=== PATIENT | male | born 1940 | race Caucasian/White ===

== ENCOUNTER 2016-07-12 02:05 | Inpatient (IN) ==
[2016-07-12] MEDS ORDERED: Ipratropium/Albuterol Neb 3 ML IH ONE (02:08)
[2016-07-12] MEDS ORDERED: methylPREDNISolone 125 MG/2 ML VIAL IVP ONE (02:16)
--- NOTE | 2016-07-12 02:18 | Emergency Department Note ---
START Narrative - START START: I examined this patient and my medical decision-making was reviewed with the [employer]LL[employer]TER OVERLOCK/PA/Advanced Practice Nurse/Resident Physician. I agree with the documented findings, disposition and treatment plan as described except to the extent set forth below. ED attending note: Patient seen with emergency medicine resident Dr. Bingham. Please see a copy of his note for details of the H&P, evaluation, management and disposition of this patient. We independently had [id number] contact with the patient Briefly: This 75-year-old male by EMS for shortness of breath history of COPD. Patient is not on supplemental oxygen says he has been using his sore trying to use his albuterol machine at home but it is not working. He otherwise just on his inhalers. Patient admits to sputum but no fevers. No ill contacts except for recent travel. No peripheral edema, expiratory wheezes ceased Tachycardic and slightly hypoxic at 92% on supplemental O2. Patient had a triple DuoNeb here steroids supplemental oxygen screening labs EKG and troponin. Provided 30 minutes critical care service for this patient. Disposition pending.
[2016-07-12] MEDS ORDERED: Nitroglycerin 0.4 MG TAB.SUBL SL PRN (02:37)
--- NOTE | 2016-07-12 02:45 | Emergency Department Note ---
Disposition Clinical Impression: Shortness of breath, Hyponatremia Disposition: Admitted As Inpatient Condition: Good Referrals: NO,PCP [Primary Care Provider] - Forms: ED Satisfaction Letter Time of Disposition: 03:41 General Adult HPI - General Chief complaint: ED Shortness of Breath/Dyspnea Stated complaint: YANIQUE Time Seen by Provider: 07/12/16 02:08 Source: patient, EMS Limitations: no limitations Nursing Notes Reviewed: Yes Vital Signs Reviewed: Yes - History of Present Illness HPI Narrative: Three-day history of shortness of breath. Productive cough with a clear sputum. Got worse at night. Does not wear oxygen at home. Does use albuterol inhalers however he has a nebulizer that is broken. Denies any fevers. Denies any chest pain. Does have a history of CHF. Denies any edema. States that this feels like his previous CHF events. Pain Scale: 0 - Related Data Home Medications Medication Instructions Recorded Confirmed Amlodipine Besylate 10 mg PO DAILY 09/15/15 09/15/15 Benazepril HCl [Lotensin] 40 mg PO DAILY 09/15/15 09/15/15 Previous Rx's Medication Instructions Recorded Albuterol Neb [Proventil Neb] 2.5 mg IH Q4HR 30 Days 09/20/15 Albuterol Sulfate [Albuterol 1 puff IH Q4HR #1 hfa.aer.ad 09/20/15 Inhaler] Budesonide/Formoterol 160/4.5 1 puff IH BIDR #1 hfa.aer.ad 09/20/15 [Symbicort 160/4.5] Doxycycline 100 mg PO BID 3 Days 09/20/15 Furosemide [Lasix] 20 mg PO BID 30 Days 09/20/15 Metoprolol [Lopressor] 50 mg PO BID 30 Days 09/20/15 Nebulizer [Aeroeclipse] 1 each AD #1 each 09/20/15 Tiotropium [Spiriva] 18 mcg IH 0700 #1 capsule 09/20/15 Allergies Allergy/AdvReac Type Severity Reaction Status Date / Time No Known Allergies Allergy Verified 07/12/16 02:06 All systems ED: reviewed and negative except as stated. Constitutional: Denies: fever, chills ENT ED: Denies: ear pain, throat pain, congestion Cardiovascular: Denies: chest pain, palpitations, syncope Respiratory: Reports: cough, dyspnea, wheezes. Denies: hemoptysis Gastrointestinal: Denies: abdominal pain, nausea, vomiting, diarrhea, hematemesis, melena, hematochezia Genitourinary: Denies: urgency, dysuria, frequency, hematuria Musculoskeletal: Denies: back pain, neck pain Integumentary: Denies: rash Neurological: Denies: headache, weakness Past Medical History - Past Medical History Attestation: Yes The following information was validated with the patient. Medical history: Reports: CHF, hypertension Surgical history: Reports: hip replacement Psychiatric history: Reports: no psych history - Social History Smoking Status: Former smoker Smokeless Tobacco Status: No Alcohol use: Reports: heavy Drug use: Reports: none Physical Exam - General Limitations: no limitations General appearance: alert, in no apparent distress - Head Head exam: atraumatic, normocephalic, normal inspection - Eye Eye exam: Present: normal appearance, PERRL, EOMI. Absent: scleral icterus - ENT ENT exam: normal exam, normal oropharynx, mucous membranes moist - Neck Neck exam: Present: normal inspection, full ROM, trachea midline. Absent: tenderness, meningismus - Chest Chest inspection: Present: normal inspection, symmetric chest wall rise. Absent : tenderness - Respiratory Respiratory exam: Present: respiratory distress, wheezes (Diffusely), accessory muscle use, prolonged expiratory phase - Cardiovascular Cardiovascular exam: Present: normal rhythm, tachycardia, normal heart sounds - Abdominal Exam Abdominal exam: Present: soft, Non-Tender, normal bowel sounds. Absent: tenderness, distention, guarding, rebound, rigidity, organomegaly - Extremities Exam Extremities exam: Present: normal inspection, full ROM, tenderness, normal capillary refill. Absent: pedal edema - Back Exam Back exam: Present: normal inspection, full ROM. Absent: tenderness - Neurological Exam Neurological exam: Present: alert, oriented X3 - Psychiatric Psychiatric exam: Present: normal affect, normal mood - Skin Skin exam: Present: warm, dry, intact, normal color. Absent: rash, cyanosis, diaphoresis, erythema Course Course Narrative: No patient complaints emergency department with EMS. He does appear to be a respirator distress. They state that his oxygen saturation was in the low 90s on arrival at the house however after nonrebreather he is 95%. They also gave her 1 DuoNeb. He does have a history of CHF. He states that this feels like his last CHF exacerbation. On exam he is using his accessory muscles to breathe. He has diffuse wheezing on exam. I do not appreciate any signs of edema to his extremities. He states he takes Lasix daily. He has been compliant with his medication. We have given the patient a triple DuoNeb and steroids. This opened patient however he still sounds very junky and is using his accessory muscles to breathe. He is at 93% on room air. However his work of breathing is increased. We will place patient on BiPAP and give him 1 nitroglycerin. Patient denies a fever however he does report a clear sputum. He denies any chest pain abdominal pain nausea vomiting or diarrhea. We will do a cardiac workup on patient get a chest x-ray. On initial valuation of the chest x-ray that was done as a portable it does appear as if he is fluid overloaded. He has pulmonary congestion. We will wait for the official read. - Reevaluation(s) Reevaluation #1: Patient was placed on BiPAP. This increased oxygen saturation and helps clear lung sounds. However he did not like this. So we removed the BiPAP. He refused anxiety medication to keep the BiPAP on. He just requested it off. Patient's chest x-ray was read as negative. However his lung sounds are still diffusely wheezing. We have placed him on 4 L by nasal cannula and he is maintaining oxygen saturation around 95%. He does have an increased lactate which could be consistent with his work of breathing. On arrival he was using accessory muscles and tripoding to breathe. He is tachycardic. We will add a d -dimer. Time: 03:34 Reevaluation #2: Patient reassessed. He still has wheezing diffusely in his lung sounds. They discussed admission. I have also discussed that he is hyponatremic he states that he is a heavy beer drinker. He states he has never withdrawn from this. Or had DTs from withdrawing from alcohol. We will admit patient to the hospital for shortness of breath and a possible new COPD diagnosis as well as the hyponatremia. Time: 03:40 - Consultations Consultation #1: accepted patient stable condition. Time: 03:46 Vital Signs Temperature 97.7 F 07/12/16 02:06 Pulse Rate 112 07/12/16 02:06 Respiratory Rate 20 07/12/16 02:06 Blood Pressure 134/82 07/12/16 02:06 O2 Sat by Pulse Oximetry 97 07/12/16 02:06 Temperature 97.7 F 07/12/16 02:06 Pulse Rate 98 07/12/16 03:34 Respiratory Rate 18 07/12/16 03:34 Blood Pressure 105/65 07/12/16 03:34 O2 Sat by Pulse Oximetry 96 07/12/16 03:34 Oxygen Delivery Oxygen Delivery Nasal Cannula Medical Decision Making - Medical Records Medical records reviewed: Yes I reviewed the patient's medical records. - Lab Data Lab results reviewed: Yes I reviewed the patient's lab results. Result diagrams: 07/12/16 02:44 07/12/16 02:44 Lab Results 07/12/16 07/12/16 07/12/16 Range/Units 02:44 02:44 02:44 WBC 8.3 (4.3-11.1) K/mcL RBC 4.79 (4.19-5.50) M/mcL Hgb 14.7 (12.9-16.9) g/dL Hct 41.1 (37.5-50.1) % MCV 85.8 (83.0-100.0) fL MCH 30.7 (28.0-33.3) pg MCHC 35.8 H (31.6-35.5) g/dL RDW 12.3 (11.5-14.5) % Plt Count 164 (140-400) K/mcL MPV 8.8 L (9.4-12.4) fL Immature Gran % 0.5 (0-4) % Seg Neutrophils % 52.5 % Lymphocytes % 31.0 % Monocytes % 6.1 % Eosinophils % 9.3 % Basophils % 0.6 % Neutrophils # 4.4 (1.6-8.9) K/mcL Lymphocytes # 2.6 (0.6-4.6) K/mcL Monocytes # 0.5 (0.0-1.3) K/mcL Eosinophils # 0.8 H (0.0-0.6) K/mcL Basophils # 0.1 (0.0-0.2) K/mcL D-Dimer (0-500) ng/mLFEU Sodium 125 L (136-145) mEq/L Potassium 3.8 (3.5-4.5) mEq/L Chloride 91 L (98-109) mEq/L Carbon Dioxide 22 (19-29) mEq/L BUN 11 (8-26) mg/dL Creatinine 0.82 (0.72-1.25) mg/dL Est GFR ( Amer) > 60 (> 60) Est GFR (Non-Af Amer) > 60 (> 60) BUN/Creatinine Ratio 13 (6-26) Glucose 133 H (70-99) mg/dL Calculated Osmolality 261 L (280-300) Lactic Acid 2.3 H (0.5-2.2) mmol/L Calcium 8.6 (8.6-10.8) mg/dL Troponin I (0-0.03) ng/mL B-Natriuretic Peptide (0-100) pg/mL 07/12/16 07/12/16 07/12/16 Range/Units 02:44 02:44 02:44 WBC (4.3-11.1) K/mcL RBC (4.19-5.50) M/mcL Hgb (12.9-16.9) g/dL Hct (37.5-50.1) % MCV (83.0-100.0) fL MCH (28.0-33.3) pg MCHC (31.6-35.5) g/dL RDW (11.5-14.5) % Plt Count (140-400) K/mcL MPV (9.4-12.4) fL Immature Gran % (0-4) % Seg Neutrophils % % Lymphocytes % % Monocytes % % Eosinophils % % Basophils % % Neutrophils # (1.6-8.9) K/mcL Lymphocytes # (0.6-4.6) K/mcL Monocytes # (0.0-1.3) K/mcL Eosinophils # (0.0-0.6) K/mcL Basophils # (0.0-0.2) K/mcL D-Dimer 543 H (0-500) ng/mLFEU Sodium (136-145) mEq/L Potassium (3.5-4.5) mEq/L Chloride (98-109) mEq/L Carbon Dioxide (19-29) mEq/L BUN (8-26) mg/dL Creatinine (0.72-1.25) mg/dL Est GFR ( Amer) (> 60) Est GFR (Non-Af Amer) (> 60) BUN/Creatinine Ratio (6-26) Glucose (70-99) mg/dL Calculated Osmolality (280-300) Lactic Acid (0.5-2.2) mmol/L Calcium (8.6-10.8) mg/dL Troponin I 0.01 (0-0.03) ng/mL B-Natriuretic Peptide 61 (0-100) pg/mL - Radiology Data Radiology results reviewed: Yes I reviewed the patient's radiology results. Chest X-Ray 07/12/16 02:08 IMPRESSION: Negative portable chest. D/ / Alexandro Cook MD / Alexandro Cook MD Interpreting Provider: Alexandro Cook MD - EKG Data EKG #1 EKG attestation: Yes I reviewed and interpreted this EKG. EKG results narrative: Sinus tachycardia at a rate of 110. FL interval is 167. QRS duration is 90. QT is 326. QTC is 391. No signs of acute ischemia. No significant changes from previous EKG dated 09/17/2015.
[2016-07-12 02:50] LABS: Basophils # 0.1 K/mcL (0.0-0.2); Basophils % 0.6 %; Eosinophils # 0.8 K/mcL (0.0-0.6); Eosinophils % 9.3 %; Hematocrit 41.1 % (37.5-50.1); Hemoglobin 14.7 g/dL (12.9-16.9); Immature Granulocytes % 0.5 % (0-4); Lymphocytes # 2.6 K/mcL (0.6-4.6); Mean Corpuscular HGB Conc 35.8 g/dL (31.6-35.5); Mean Corpuscular Hemoglobin 30.7 pg (28.0-33.3); Mean Corpuscular Volume 85.8 fL (83.0-100.0); Mean Platelet Volume 8.8 fL (9.4-12.4); Monocytes # 0.5 K/mcL (0.0-1.3); Monocytes % 6.1 %; Neutrophils # 4.4 K/mcL (1.6-8.9); Platelet Count 164 K/mcL (140-400); Red Blood Count 4.79 M/mcL (4.19-5.50); Red Cell Distribution Width 12.3 % (11.5-14.5); Segmented Neutrophils % 52.5 %
[2016-07-12 03:03] LABS: BUN/Creatinine Ratio 13 (6-26); Blood Urea Nitrogen 11 mg/dL (8-26); Calcium 8.6 mg/dL (8.6-10.8); Carbon Dioxide 22 mEq/L (19-29); Chloride 91 mEq/L (98-109); Glucose 133 mg/dL (70-99); Osmolality,Calculated 261 (280-300); Potassium 3.8 mEq/L (3.5-4.5); Sodium 125 mEq/L (136-145); eGFR For African Americans > 60 (> 60); eGFR For Non-African Americans > 60 (> 60)
[2016-07-12] MEDS ORDERED: Ondansetron 4 MG/2 ML VIAL IVP PRN (03:55)
[2016-07-12] MEDS ORDERED: Acetaminophen 325 MG TABLET PO PRN (03:55)
[2016-07-12] MEDS ORDERED: Naloxone 0.4 MG/ML INJ IVP PRN (03:55)
[2016-07-12] MEDS ORDERED: *HR* LORazepam 2 MG/ML VIAL IVP PRN ×3 (04:57)
--- NOTE | 2016-07-12 05:06 | Internal Med History&Physical ---
<Anthony Hager - Last Filed: 07/12/16 05:03> Date of Encounter: 07/12/16 Time of Encounter: 05:03 Assessment and Plan (1) Acute exacerbation of chronic obstructive pulmonary disease (COPD) Current visit: Yes Status: Acute Patient has increased shortness of breath with sputum production. Patient denies a formal diagnosis of COPD however given his smoking history and his medication list including Symbicort, Spiriva, albuterol patient almost definitely has COPD and is in acute exacerbation. The patient received DuoNeb' s and steroids in the emergency department. We will continue these and add on antibiotics. Patient attempted to wear BiPAP in the emergency department however could not tolerate it. At the time I examined the patient was mildly tachypneic but was not using accessory muscles and was satting in the upper 90s on nasal cannula. We will hold off on ordering an ABG at this time however the patient's respiratory status or mental status changes we will obtain an ABG and place the patient on BiPAP. (2) Hyponatremia Current visit: Yes Status: Acute Likely due to excessive alcohol intake. Asymptomatic at this time. Continue to follow. (3) Heart failure Current visit: Yes Status: Acute This does not appear to be in acute heart failure exacerbation. There is no lower extremity edema, crackles or not heard on exam, chest x-ray does not show evidence of pulmonary edema or pulmonary vascular congestion. We will continue the patient's home diuretics and beta blockers. Qualifiers: Heart failure type: diastolic Heart failure chronicity: chronic Qualified Code(s): I50.32 - Chronic diastolic (congestive) heart failure (4) Hypertension Current visit: Yes Status: Acute Stable. Continue home medications. Qualifiers: Hypertension type: essential hypertension Qualified Code(s): I10 - Essential (primary) hypertension (5) Alcohol use Current visit: Yes Status: Acute Patient reports significant alcohol use with 8-10 beers daily. Patient reports his last drink was last night. Patient denies history of withdrawal symptoms. Will institute CIWA protocol. (6) DVT prophylaxis Current visit: No Status: Acute Heparin 5000 units subcutaneous twice a day. Internal Medicine - H&P: HPI Chief complaint: Dyspnea Admitted From: Emergency Dept Plans for Post Hospital Care: Home History of present illness: Mr. Flores is a 75 year old male with history of congestive heart failure and smoking history presents with shortness of breath. Patient states that his symptoms began approximately week ago and have been gradually getting worse. Shortness of breath and worsened further today so he came to the emergency department. She states he had similar symptoms about a year ago and was told it was his heart. He also complains of a cough over the last week with white sputum. He denies any fever, chills, chest pain, abdominal pain, nausea, vomiting, diarrhea, dysuria, lower extremity swelling. Past Med Surg Social Fam HX - Past Medical History Medical history: CHF, hypertension Psychiatric history: no psych history - Past Surgical History Surgical History: hip replacement - Social History Smoking Status: Former smoker Smokeless Tobacco Status: No Alcohol use: heavy Drug use: none - Family History Father Living Status: Hx Family Cardiac Disorders: Yes (ID) Hx Family Respiratory Disorders: Yes (COPD) Hx Family Cancer: No Hx Family GI Disorders: Yes (Hernia and gallbladder surgery) Hx Family Endocrine Disorder: No Hx Family Neuromuscular Disorders: No Hx Family Neurologic Disorders: No Hx Family HEENT Disorders: No Hx Family Autoimmune Disorders: No Internal Medicine - H&P: Meds Amlodipine Besylate 10 mg PO DAILY 09/15/15 [History] Benazepril HCl [Lotensin] 40 mg PO DAILY 09/15/15 [History] Albuterol Neb [Proventil Neb] 2.5 mg IH Q4HR 30 Days 09/20/15 [Rx] Albuterol Sulfate [Albuterol Inhaler] 1 puff IH Q4HR #1 hfa.aer.ad 09/20/15 [Rx] Budesonide/Formoterol 160/4.5 [Symbicort 160/4.5] 1 puff IH BIDR #1 hfa.aer.ad 09/20/15 [Rx] Doxycycline 100 mg PO BID 3 Days 09/20/15 [Rx] Furosemide [Lasix] 20 mg PO BID 30 Days 09/20/15 [Rx] Metoprolol [Lopressor] 50 mg PO BID 30 Days 09/20/15 [Rx] Nebulizer [Aeroeclipse] 1 each AD #1 each 09/20/15 [Rx] Tiotropium [Spiriva] 18 mcg IH 0700 #1 capsule 09/20/15 [Rx] Allergies No Known Allergies Allergy (Verified 07/12/16 02:06) All Systems PM: A 10-system review of systems was performed and is negative for pertinent findings except as documented above in the HPI. - Constitutional Constitutional: no chills, no fever(s) - EENT Eyes: no blurry vision, no change in vision Nose, mouth and throat: no sinus pain, no sinus pressure, no sore throat - Cardiovascular Cardiovascular ROS IM: dyspnea, dyspnea on exertion, no chest pain, no edema, no palpitations, no syncope - Respiratory Respiratory: cough, dyspnea, dyspnea on exertion, excessive phlegm production, no hemoptysis, no wheezing, no chest congestion, no change in phlegm color - Gastrointestinal Gastrointestinal: abdominal pain, no diarrhea, no nausea, no vomiting - Genitourinary Genitourinary ROS male: no dysuria, no hematuria - Musculoskeletal Musculoskeletal ROS IM: no back pain - Integumentary Integumentary IM: no erythema, no new lesions, no rash - Neurological Neurological ROS: no confusion, no dizziness, no numbness, no tingling - Psychiatric Psychiatric: anxiety - Hematologic/Lymphatic Hematologic/Lymphatic: no easy bleeding, no easy bruising - Allergic/Immunologic Allergic/Immunologic: no tongue swelling, no throat swelling - Constitutional Vitals: Temp Pulse Resp BP Pulse Ox 97.7 F 98 18 128/64 98 07/12/16 02:06 07/12/16 03:34 07/12/16 04:48 07/12/16 04:48 07/12/16 03:45 General appearance: Present: A&O X 3, no acute distress - Head Head exam: Present: atraumatic, normal inspection, normocephalic - Eye Eye exam: Present: EOMI, PERRL - ENT ENT exam: Present: mucous membranes moist - Neck Neck exam general surgery: Present: supple. Absent: tenderness - Respiratory Respiratory exam: Present: decreased breath sounds, wheezes (Throughout), tachypnea. Absent: CTAB, rales, rhonchi - Cardiovascular Cardiovascular exam: Present: RRR, tachycardia. Absent: gallop, rubs, systolic murmur - GI/Abdominal GI/Abdominal exam: Present: normal bowel sounds, soft. Absent: distended, tenderness - Extremities Exam Extremities exam: Present: warm. Absent: pedal edema, tenderness - Neurological Exam Neurological exam: Present: alert, CN II-XII intact, oriented X3, no focal deficits - Psychiatric Psychiatric exam: Present: flat affect - Skin Skin exam: Present: dry, intact, warm Internal Med - H&P Results - Labs CBC & Chem 7: 07/12/16 02:44 07/12/16 02:44 - EKG Data -: EKG Interpreted by Myself EKG shows normal: sinus rhythm Rate: tachycardia - EKG Data When compared to previous EKG: there is no significant change <Tommy Vázquez - Last Filed: 07/12/16 05:41> Date of Encounter: 07/12/16 Internal Medicine - H&P: HPI History of present illness: Mr. Flores is a 75 year old male All Systems PM: A 10-system review of systems was performed and is negative for pertinent findings except as documented above in the HPI. - Constitutional Vitals: Temp Pulse Resp BP Pulse Ox 97.7 F 98 18 128/64 98 07/12/16 02:06 07/12/16 03:34 07/12/16 04:48 07/12/16 04:48 07/12/16 03:45 Internal Med - H&P Results - Labs CBC & Chem 7: 07/12/16 02:44 07/12/16 02:44 - Attending Attestation I examined this patient and my medical decision-making was reviewed with Dr. Hager. I agree with the documented findings, disposition and treatment plan as described except to the extent set forth below. 75 yo CM with history of extensive smoking and alcohol use presented to ER due to SOB, cough and sputum production. No fever or chills. On exam, in moderate respiratory distress. Using some accessory muscles of respiration. Diffuse wheezing with reduced air entry bilaterally. Heart sounds auscultated but distant. Labs reviewed. CXR personally reviewed and without any acute infiltrate. A/P: 1. COPD with exacerbation - Admit as inpatient status. Expected to be in the hospital for at least 2 midnights. High risk due to risk of worsening respiratory failure which may require intubation and mechanical ventilation. Expected discharge disposition is to home. Intravenous steroids and antibiotics. Noninvasive positive pressure ventilatory support. If does not respond to the same, will require intubation and mechanical ventilation. Monitor closely. Patient states he is claustrophobic but is willing to trial BiPAP for 15-20 minutes at a time. Duo nebs. 2. Acute respiratory failure-oxygen and BiPAP support. Treatment as above. 3. Tobacco abuse-counseled regarding cessation. 4. Alcohol dependence-counseled regarding cessation. Alcohol withdrawal protocol. Thiamine and folic acid. 5. Mild hyponatremia 6. Essential HTN CHELSEY PalmerBS
[2016-07-12] MEDS: methylPREDNISolone 125 MG/2 ML VIAL IVP SCH ×3 (05:42→17:16)
[2016-07-12] MEDS: *HR* Heparin 5,000 UNIT/ML VIAL SQ SCH ×2 (05:42→17:16)
[2016-07-12] MEDS: Budesonide/Formoterol 160/4.5 MDI IH SCH ×2 (07:39→20:05)
[2016-07-12] MEDS: Ipratropium/Albuterol Neb 3 ML IH SCH ×5 (07:39→23:24)
[2016-07-12] MEDS: Folic Acid 1 MG TABLET PO SCH (09:36)
[2016-07-12] MEDS: amLODIPine 5 MG TABLET PO SCH (09:36)
[2016-07-12] MEDS: Vitamin B Complex/Vit C/Vit E 1 EACH TABLET PO SCH (09:36)
[2016-07-12] MEDS: levoFLOXacin 500 MG TABLET PO SCH (09:36)
[2016-07-12] MEDS: Furosemide 20 MG TABLET PO SCH ×2 (09:36→17:17)
--- NOTE | 2016-07-12 11:57 | Event Note ---
Date of Encounter: 07/12/16 Time of Encounter: 09:00 Patient seen and examined. On examination, patient sitting upright in bed. Patient stating shortness of breath has much improved over the last several hours. He denies pain at this time. He was wearing BiPAP but is currently tolerating 3 L per nasal cannula. He is not on oxygen at home. Chest x-ray negative. On examination, patient with fair aeration throughout and few, scattered coarse wheezes. Lactic acidosis also noted- adynamic this far, will trend. No indication for IVF at this time; patient euvolemic on examination. Hyponatremia noted with hypoosmolality-acute on chronic. Likely secondary to substantial alcohol intake. Will trend. He is on the CIWA protocol, and thus far, his scores have been low. If his scores trend up, we will initiate Librium. We will continue with pulmonary toilet measures and BiPAP as needed. Elevated D dimer noted- will order a CTA. ITS Impressions Chest X-Ray 07/12/16 02:08 IMPRESSION: Negative portable chest. D/ / Alexandro Cook MD / Alexandro Cook MD Interpreting Provider: Alexandro Cook MD
[2016-07-12 14:26] LABS: ABG Base Excess -0.5 mEq/L (-2.0 to 3.0); ABG HCO3 24.2 mEQ/L (21-27); ABG Oxygen Saturation 98 % (95-98); ABG PCO2 39 mmHg (35-45); ABG PO2 105 mmHg (85-104); ABG TCO2 25.4 mEq/L (20-26)
[2016-07-12 14:28] LABS: Blood Gas FiO2 28 %
--- NOTE | 2016-07-12 17:36 | Event Note ---
Date of Encounter: 07/12/16 Time of Encounter: 17:00 Patient seen and reexamined. On reexamination, patient is sitting upright in bed eating his dinner. He appears much more comfortable and his aeration has improved quite a bit since admission. He now has coarse wheezing throughout with much improved aeration. He states he is doing a lot better. He is still using BiPAP as needed and 3 L per nasal cannula when BiPAP is not in place. CTA unremarkable for PE however did reveal a slight decrease in his thoracic aortic aneurysm. Will speak to vascular tomorrow further recommendations and likely have him follow-up outpatient. Elevated lactic acid noted however ABGs were unremarkable. Elevated lactic acid is likely secondary to his COPD exacerbation and he is well compensated at this time. Will continue current plan of care and monitor. ITS Impressions Chest CTA 07/12/16 11:54 IMPRESSION: 1. No evidence of pulmonary embolism. 2. 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 Vascular surgery consultation is recommended. 3. Mild emphysema. 4. Coronary atherosclerosis. D/ / 07/12/2016 12:58:39 Mulugeta Camarena MD / marsha Interpreting Provider: Mulugeta Camarena MD
--- NOTE | 2016-07-12 20:23 | Electrocardiograph Report ---
[address] [place], [place] [address] Test Date: 2016-07-12 Pat Name: Doc Flores Department: 104 Room: 3B23 Gender: M [employer] Le[employer] Sorter: SAMMY : 1940 Requested By: Joslyn Bingham Order Number: [id number] Reading MD: Min Powell MD Measurements Intervals [place] Rate: 110 P: 90 CA: 167 QRS: 64 QRSD: 90 T: 81 QT: 326 QTc: 391 Interpretive Statements SINUS TACHYCARDIA WITH OCCASIONAL VENTRICULAR PREMATURE COMPLEXES LOW QRS VOLTAGE IN PRECORDIAL LEADS ANTEROSEPTAL MYOCARDIAL INFARCTION, PROBABLY OLD Electronically Signed On 07-12-2016 20:20:56 EDT by Min Powell MD
[2016-07-12] MEDS ORDERED: GI Cocktail 40 ML EACH PO ONE (23:19)
[2016-07-13] MEDS: methylPREDNISolone 125 MG/2 ML VIAL IVP SCH ×4 (00:05→18:06)
[2016-07-13] MEDS: Ipratropium/Albuterol Neb 3 ML IH SCH ×6 (04:15→23:15)
[2016-07-13 05:18] LABS: Hematocrit 37.6 % (37.5-50.1); Hemoglobin 13.7 g/dL (12.9-16.9); Immature Granulocytes % 0.5 % (0-4); Lymphocytes # 0.8 K/mcL (0.6-4.6); Lymphocytes % 8.8 %; Mean Corpuscular HGB Conc 36.4 g/dL (31.6-35.5); Mean Corpuscular Hemoglobin 31.5 pg (28.0-33.3); Mean Corpuscular Volume 86.4 fL (83.0-100.0); Mean Platelet Volume 9.6 fL (9.4-12.4); Monocytes # 0.2 K/mcL (0.0-1.3); Monocytes % 2.2 %; Neutrophils # 7.7 K/mcL (1.6-8.9); Platelet Count 164 K/mcL (140-400); Red Blood Count 4.35 M/mcL (4.19-5.50); Red Cell Distribution Width 12.8 % (11.5-14.5); Segmented Neutrophils % 88.5 %
[2016-07-13 05:27] LABS: BUN/Creatinine Ratio 19 (6-26); Blood Urea Nitrogen 19 mg/dL (8-26); Calcium 9.1 mg/dL (8.6-10.8); Carbon Dioxide 26 mEq/L (19-29); Chloride 92 mEq/L (98-109); Glucose 202 mg/dL (70-99); Osmolality,Calculated 270 (280-300); Potassium 4.2 mEq/L (3.5-4.5); Sodium 126 mEq/L (136-145); eGFR For African Americans > 60 (> 60); eGFR For Non-African Americans > 60 (> 60)
[2016-07-13] MEDS: *HR* Heparin 5,000 UNIT/ML VIAL SQ SCH ×2 (06:45→18:05)
[2016-07-13] MEDS: Budesonide/Formoterol 160/4.5 MDI IH SCH ×2 (07:44→19:36)
[2016-07-13] MEDS: amLODIPine 5 MG TABLET PO SCH (08:25)
[2016-07-13] MEDS: Furosemide 20 MG TABLET PO SCH ×2 (08:25→18:05)
[2016-07-13] MEDS: Vitamin B Complex/Vit C/Vit E 1 EACH TABLET PO SCH (08:25)
[2016-07-13] MEDS: Folic Acid 1 MG TABLET PO SCH (08:25)
[2016-07-13] MEDS: levoFLOXacin 500 MG TABLET PO SCH (08:25)
[2016-07-13] MEDS ORDERED: Mag Hydrox/Al Hydrox/Simeth 30 ML UDC PO PRN (17:08)
--- NOTE | 2016-07-13 17:08 | Internal Med Progress Note ---
Date of Encounter: 07/13/16 Time of Encounter: 12:30 - Assessment and plan (1) Acute exacerbation of chronic obstructive pulmonary disease (COPD) Current Visit: Yes Status: Acute Assessment and plan: Improved greatly since admission. We will continue to wean him off BiPAP and oxygen as needed. He did not qualify for home IPAP or home supplemental oxygen. ABGs normal. Chest x-ray negative. CTA negative. Possible discharge tomorrow pending clinical outcomes. ITS Impressions Chest X-Ray 07/12/16 02:08 IMPRESSION: Negative portable chest. D/ / Alexandro Cook MD / Alexandro Cook MD Interpreting Provider: Alexandro Cook MD Chest CTA 07/12/16 11:54 IMPRESSION: 1. No evidence of pulmonary embolism. 2. 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 Vascular surgery consultation is recommended. 3. Mild emphysema. 4. Coronary atherosclerosis. D/ / 07/12/2016 12:58:39 Mulugeta Camarena MD / marsha Interpreting Provider: Mulugeta Camarena MD (2) Acute hypoxemic respiratory failure Current Visit: No Status: Acute Assessment and plan: Patient requiring 3 L per nasal cannula and BiPAP at times. His ABGs are unremarkable. Spoke to social media director, because his ABGs are normal, he would not qualify for BiPAP at home. We attempted to qualify him for supplemental oxygenation however he did not qualify today. We will continue to wean as he tolerates. He is not on oxygen at home currently. (3) Aortic aneurysm, thoracic Current Visit: No Status: Chronic Assessment and plan: Slight increase in size noted on imaging. Spoke to vascular surgeon Dr. Casey who cleared him for outpatient follow-up. ITS Impressions Chest CTA 07/12/16 11:54 IMPRESSION: 1. No evidence of pulmonary embolism. 2. 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 Vascular surgery consultation is recommended. 3. Mild emphysema. 4. Coronary atherosclerosis. D/ / 07/12/2016 12:58:39 Mulugeta Camarena MD / [facility] Interpreting Provider: Mulugeta Camarena MD Qualifiers: Presence of rupture: without rupture Qualified Code(s): I71.2 - Thoracic aortic aneurysm, without rupture (4) ETOH abuse Current Visit: No Status: Chronic Assessment and plan: remains on CIWA protocol. No signs of active withdrawal. He does have tremors to his upper extremities however he states these are chronic. (5) Hyponatremia Current Visit: Yes Status: Chronic Assessment and plan: Acute on chronic. Associated with hyperosmolality. Slightly improved since admission. Likely secondary to alcohol abuse. (6) DVT prophylaxis Current Visit: No Status: Acute Assessment and plan: Subcutaneous heparin (7) History of tobacco abuse Current Visit: No Status: Chronic Assessment and plan: Declines counseling (8) Hypertension Current Visit: Yes Status: Chronic Assessment and plan: Controlled with his home dosing of amlodipine 10 mg daily. We will continue to trend. Qualifiers: Hypertension type: essential hypertension Qualified Code(s): I10 - Essential (primary) hypertension (9) Diastolic heart failure Current Visit: Yes Status: Chronic Assessment and plan: No acute exacerbation. Euvolemic on examination. - Subjective Interval history: Patient seen and examined. On examination, patient sitting upright in bed eating his lunch. Patient sitting shortness of breath is improving daily. He is endorsing a normal appetite. He denies pain at this time. - Constitutional Vitals: Temp Pulse Resp BP Pulse Ox 98.1 F 100 15 138/74 96 07/13/16 15:44 07/13/16 15:44 07/13/16 16:06 07/13/16 15:44 07/13/16 16:06 General appearance: Present: mild distress, A&O X 3, pleasant, answers questions appropriately - Head Head exam: Present: atraumatic, normocephalic - Eye Eye exam: Present: PERRL, conjuntiva pink, sclera anicteric Pupils: Present: PERRL - Neck Neck exam general surgery: Present: supple, trachea midline. Absent: lymphadenopathy - Respiratory Respiratory exam: Present: accessory muscle use, decreased breath sounds, respiratory distress (Mild), wheezes (Few, scattered). Absent: rales, rhonchi - Cardiovascular Cardiovascular exam: Present: RRR, +S1, +S2. Absent: diastolic murmur, gallop, rubs, systolic murmur - GI/Abdominal GI/Abdominal exam: Present: normal bowel sounds, soft, no peritoneal signs. Absent: distended, tenderness - Extremities Exam Extremities exam: Present: warm, radial pulses palpable and symetrical. Absent : calf tenderness, cyanotic, pedal edema - Neurological Exam Neurological exam: Present: alert, CN II-XII intact, oriented X3, no focal deficits, strengths equal and symetr throughout. Absent: pronater drift, facial droop, speech deficit - Skin Skin exam: Present: dry, intact, normal color, warm Internal Medicine: Result - Labs CBC & Chem 7: 07/13/16 04:54 07/13/16 04:54 Labs: Short CBC 07/13/16 Range/Units 04:54 WBC 8.7 (4.3-11.1) K/mcL Hgb 13.7 (12.9-16.9) g/dL Hct 37.6 (37.5-50.1) % Plt Count 164 (140-400) K/mcL Neutrophils # 7.7 (1.6-8.9) K/mcL BMP 07/13/16 04:54 Sodium 126 L Potassium 4.2 Chloride 92 L Carbon Dioxide 26 BUN 19 Creatinine 0.98 Glucose 202 H Calcium 9.1 - ABG Interpretation ABG results: ABG ABG pH 7.40 pH Units (7.32-7.45) 07/12/16 14:10 ABG pCO2 39 mmHg (35-45) 07/12/16 14:10 ABG pO2 105 mmHg (85-104) H 07/12/16 14:10 ABG O2 Saturation 98 % (95-98) 07/12/16 14:10 PT/INR, D-dimer D-Dimer 543 ng/mLFEU (0-500) H 07/12/16 02:44 Consult Discharge Plan - Plan Referrals: Gary Cosby Jr, MD [Primary Care Provider] - 07/23/16 11:00 am
[2016-07-14] MEDS: methylPREDNISolone 125 MG/2 ML VIAL IVP SCH ×3 (00:32→11:38)
[2016-07-14] MEDS: Ipratropium/Albuterol Neb 3 ML IH SCH ×3 (03:50→10:57)
[2016-07-14] MEDS: *HR* Heparin 5,000 UNIT/ML VIAL SQ SCH (06:23)
[2016-07-14] MEDS: levoFLOXacin 500 MG TABLET PO SCH (07:43)
[2016-07-14] MEDS: amLODIPine 5 MG TABLET PO SCH (07:43)
[2016-07-14] MEDS: Folic Acid 1 MG TABLET PO SCH (07:43)
[2016-07-14] MEDS: Vitamin B Complex/Vit C/Vit E 1 EACH TABLET PO SCH (07:43)
[2016-07-14] MEDS: Furosemide 20 MG TABLET PO SCH (07:43)
[2016-07-14] MEDS: Budesonide/Formoterol 160/4.5 MDI IH SCH (07:56)
[2016-07-14 11:38] VITALS: BP 122/70
--- NOTE | 2016-07-14 14:23 | Discharge Summary ---
Date of Encounter: 07/14/16 Time of Encounter: 13:00 - Discharge Diagnosis (1) Acute exacerbation of chronic obstructive pulmonary disease (COPD) Priority: Primary Status: Resolved (2) Acute hypoxemic respiratory failure Priority: Primary Status: Resolved (3) Aortic aneurysm, thoracic Priority: Secondary Status: Chronic Qualifiers: Presence of rupture: without rupture Qualified Code(s): I71.2 - Thoracic aortic aneurysm, without rupture (4) ETOH abuse Priority: Secondary Status: Chronic Comments: No signs of withdrawal during this admission (5) Hyponatremia Priority: Secondary Status: Chronic Comments: Associated with hyperosmolality, likely secondary to alcoholism and poor nutritional intake. Improved while admitted. Follow-up outpatient. (6) DVT prophylaxis Priority: Primary Status: Acute Comments: Subcutaneous heparin while admitted (7) History of tobacco abuse Priority: Secondary Status: Chronic Comments: Declined counseling (8) Hypertension Priority: Secondary Status: Chronic Comments: Controlled with his home dosing of amlodipine 10 mg daily. Follow up outpatient. Qualifiers: Hypertension type: essential hypertension Qualified Code(s): I10 - Essential (primary) hypertension (9) Diastolic heart failure Priority: Secondary Status: Chronic Comments: No acute exacerbation. Euvolemic on examination. - Discharge Medications Prescriptions: levoFLOXacin [Levaquin] 500 mg PO DAILY #4 tablet predniSONE [PredniSONE] 10 mg PO DAILY #80 tablet Tiotropium [Spiriva] 18 mcg IH 0700 #30 capsule Home Medications: Amlodipine Besylate 10 mg PO DAILY 09/15/15 [History] Benazepril HCl [Lotensin] 40 mg PO DAILY 09/15/15 [History] Albuterol Neb [Proventil Neb] 2.5 mg IH Q4HR 30 Days 09/20/15 [Rx] Albuterol Sulfate [Albuterol Inhaler] 1 puff IH Q4HR #1 hfa.aer.ad 09/20/15 [Rx] Furosemide [Lasix] 20 mg PO BID 30 Days 09/20/15 [Rx] Losartan Potassium [Cozaar] 50 mg PO BID 07/12/16 [History] Budesonide/Formoterol 160/4.5 [Symbicort 160/4.5] 1 puff IH BIDR inhaler [Rx] Metoprolol [Lopressor] 50 mg PO BID tablet 07/14/16 [Rx] Tiotropium [Spiriva] 18 mcg IH 0700 #30 capsule 07/14/16 [Rx] levoFLOXacin [Levaquin] 500 mg PO DAILY #4 tablet 07/14/16 [Rx] predniSONE [PredniSONE] 10 mg PO DAILY #80 tablet 07/14/16 [Rx] Allergies/Adverse Reactions: Allergies No Known Allergies Allergy (Verified 07/12/16 02:06) Procedures/tests Complete & Pending: Procedures Performed prior 72 hours Category Date Time Status CTA chest [CT angio chest] [CT] Stat Cat Scan 07/12/16 11:54 Draft Date of admission: 07/12/16 05:23 Primary care physician: Gary Cosby Jr, MD Consults: 07/13/16 09:58 Consult to Vascular Surgery [CONS] Routine Consulting Provider: [facility] Reason for Consult: increased size aortic aneurysm Time Notified: 09:59 Call Completed: Yes 07/13/16 11:55 Consult to Twister Tender Paper [CONS] Routine Reason for SW Consult: may need oxygen; not currently on any at home Discharging clinician: Natty Kam Anticipated date of discharge: 07/14/16 - Patient Status Disposition: Home, Self-Care Condition: Good Functional capacity at discharge: independent ambulation Overall status at discharge: patient is back to baseline - Discharge Instructions Instructions: Chronic Obstructive Pulmonary Disease (DC) Follow Up With: Gary Cosby Jr, MD [Primary Care Provider] - 07/23/16 11:00 am [facility] [Provider Group] Additional Instructions: Follow-up with primary care provider as scheduled. Follow up with vascular surgery within 3 weeks - Diet and Activity Activity: increase activity as tolerated Diet: low fat, low cholesterol, low salt diet Hospital course: Mr. Flores is a 75 year old male with past medical history of diastolic heart failure, tobacco abuse, hypertension, heavy alcohol use. Patient without formal diagnosis of COPD however he has a lengthy smoking history and is on Symbicort and albuterol at home. He presented to the emergency department chief complaint of shortness of breath 1 week that had gotten progressively worse. Patient also endorsed a cough with white sputum. He denied fever, chills, chest pain, nausea vomiting or diarrhea. He denied pedal edema. Workup in the emergency department unremarkable. Chest x-ray negative. Patient was admitted to the hospitalist service for further evaluation and management. Chest CTA ruled out a PE. She CTA did however reveal a slight increase in the size of his aortic aneurysm. Spoke to vascular surgery Dr. Casey who cleared the patient for outpatient follow-up. His CIWA scoring remained low during this admission. Initially during admission, patient required 3 L per nasal cannula as well as BiPAP at times. He was treated for COPD exacerbation over the course of 3 days. Over the course of these days, patient was gradually weaned back to room air. He is not on oxygen at home. We attempted to qualify him for BiPAP however his ABGs were normal. We also attempted to qualify him for home oxygen mediated he did not qualify. Spiriva was added to his regimen. On day of discharge, patient denied shortness of breath above his norm and stated he was back to his baseline. He was discharged home in stable condition with close outpatient follow-up recommended. ITS Impressions Chest X-Ray 07/12/16 02:08 IMPRESSION: Negative portable chest. D/ / Alexandro Cook MD / Alexandro Cook MD Interpreting Provider: Alexandro Cook MD Chest CTA 07/12/16 11:54 IMPRESSION: 1. No evidence of pulmonary embolism. 2. 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 Vascular surgery consultation is recommended. 3. Mild emphysema. 4. Coronary atherosclerosis. D/ / 07/12/2016 12:58:39 Mulugeta Camarena MD / marsha Interpreting Provider: Mulugeta Camarena MD - Time Spent with Patient Total time spent providing and/or coordinating discharge services: - Constitutional Vitals: Temp Pulse Resp BP Pulse Ox 97.9 F 92 16 122/70 93 07/14/16 11:37 07/14/16 11:37 07/14/16 11:37 07/14/16 11:37 07/14/16 11:37 General appearance: Present: A&O X 3, pleasant, no acute distress, answers questions appropriately - Head Head exam: Present: atraumatic, normocephalic - Eye Eye exam: Present: PERRL, conjuntiva pink, sclera anicteric Pupils: Present: PERRL - Neck Neck exam general surgery: Present: supple, trachea midline. Absent: lymphadenopathy - Respiratory Respiratory exam: Present: decreased breath sounds, wheezes. Absent: accessory muscle use, rales, respiratory distress, rhonchi - Cardiovascular Cardiovascular exam: Present: RRR, +S1, +S2. Absent: diastolic murmur, gallop, rubs, systolic murmur - GI/Abdominal GI/Abdominal exam: Present: normal bowel sounds, soft, no peritoneal signs. Absent: distended, tenderness - Extremities Exam Extremities exam: Present: warm, radial pulses palpable and symetrical. Absent : calf tenderness, cyanotic, pedal edema - Neurological Exam Neurological exam: Present: alert, CN II-XII intact, normal gait, oriented X3, no focal deficits, strengths equal and symetr throughout. Absent: pronater drift, facial droop, speech deficit - Skin Skin exam: Present: dry, intact, normal color, warm
== END 2016-07-14 15:15 | disposition home or self-care (01) | DRG 190 ==
LOC: EMEROO 02:05 → 3BNU 02:05
PROVIDERS: ADMIT Nurse Practitioner Family; ATTEND Nurse Practitioner Family

== ENCOUNTER 2016-08-21 10:49 | Observation (INO) ==
[2016-08-21] MEDS ORDERED: methylPREDNISolone 125 MG/2 ML VIAL IVP ONE (11:19)
[2016-08-21] MEDS ORDERED: Ipratropium/Albuterol Neb 3 ML IH ONE ×2 (11:19→12:50)
--- NOTE | 2016-08-21 11:35 | Emergency Department Note ---
Disposition Clinical Impression: Acute exacerbation of chronic obstructive airways disease Disposition: Admitted As Inpatient Condition: Fair Referrals: NO,PCP [Non-Partnered Physician] - Forms: ED Satisfaction Letter Time of Disposition: 12:53 SOB HPI - General Chief Complaint: ED Shortness of Breath/Dyspnea Stated Complaint: YANIQUE Time Seen by Provider: 08/21/16 11:12 Source: patient Limitations: no limitations Nursing Notes Reviewed: Yes Vital Signs Reviewed: Yes - History of Present Illness 75-year-old male with a history COPD comes in with increasing shortness of breath. Patient states that symptoms have worsened over the last couple of days. He does use a nebulizer at home, he did not qualify for oxygen on his previous admission a few weeks ago. Pt Subjective Complaint: shortness of breath, cough Onset (ago): hour(s) Context: recent illness Severity: moderate Consistency/Duration: constant Improves with: nothing Worsens with: exertion Known history of: COPD Associated symptoms: Reports: cough, wheezing Treatment prior to arrival: none Cough Description: Involuntary Cough Frequency: Intermittent - Related Data Home Medications Medication Instructions Recorded Confirmed Amlodipine Besylate 10 mg PO DAILY 09/15/15 07/12/16 Benazepril HCl [Lotensin] 40 mg PO DAILY 09/15/15 07/12/16 Losartan Potassium [Cozaar] 50 mg PO BID 07/12/16 07/12/16 Previous Rx's Medication Instructions Recorded Albuterol Neb [Proventil Neb] 2.5 mg IH Q4HR 30 Days 09/20/15 Albuterol Sulfate [Albuterol 1 puff IH Q4HR #1 hfa.aer.ad 09/20/15 Inhaler] Furosemide [Lasix] 20 mg PO BID 30 Days 09/20/15 Budesonide/Formoterol 160/4.5 1 puff IH BIDR inhaler 07/14/16 [Symbicort 160/4.5] Metoprolol [Lopressor] 50 mg PO BID tablet 07/14/16 Tiotropium [Spiriva] 18 mcg IH 0700 #30 capsule 07/14/16 levoFLOXacin [Levaquin] 500 mg PO DAILY #4 tablet 07/14/16 predniSONE [PredniSONE] 10 mg PO DAILY #80 tablet 07/14/16 Allergies Allergy/AdvReac Type Severity Reaction Status Date / Time No Known Allergies Allergy Verified 08/21/16 11:00 All systems ED: reviewed and negative except as stated. Constitutional: Denies: fever, chills, weakness, weight change Eyes: Denies: eye pain, eye discharge, vision change ENT ED: Denies: ear pain, throat pain, dental pain, hearing loss, epistaxis, congestion, dysphagia Cardiovascular: Denies: chest pain, palpitations, dyspnea on exertion, edema, syncope Respiratory: Reports: cough, dyspnea, wheezes. Denies: hemoptysis, stridor Gastrointestinal: Denies: abdominal pain, nausea, vomiting, diarrhea, constipation, hematemesis, melena, hematochezia Genitourinary: Denies: urgency, dysuria, frequency, hematuria Musculoskeletal: Denies: back pain, neck pain, arthralgia, myalgia Integumentary: Denies: rash, abrasion, lesions Neurological: Denies: headache, weakness, numbness, paresthesias, confusion, abnormal gait, vertigo Psychiatric: Denies: anxiety, depression, suicidal thoughts, homicidal thoughts , auditory hallucinations, visual hallucinations Endocrine: Denies: fatigue Hematological/Lymphatic: Denies: easy bleeding, easy bruising Allergic/Immunologic: Denies: facial swelling, urticaria Past Medical History - Past Medical History Medical history: Reports: CHF, hypertension Surgical history: Reports: hip replacement Psychiatric history: Reports: no psych history - Social History Smoking Status: Former smoker Smokeless Tobacco Status: No Alcohol use: Reports: heavy Drug use: Reports: none Physical Exam - General Limitations: no limitations General appearance: alert - Head Head exam: atraumatic, normocephalic, normal inspection - Eye Eye exam: Present: normal appearance, PERRL, EOMI - ENT ENT exam: normal exam, normal oropharynx, mucous membranes moist - Neck Neck exam: Present: normal inspection, full ROM, trachea midline - Chest Chest inspection: Present: normal inspection, symmetric chest wall rise - Respiratory Respiratory exam: Present: wheezes - Cardiovascular Cardiovascular exam: Present: regular rate, normal rhythm, normal heart sounds - Abdominal Exam Abdominal exam: Present: soft, Non-Tender. Absent: tenderness, distention, guarding, rebound, rigidity - Extremities Exam Extremities exam: Present: normal inspection, full ROM. Absent: tenderness, pedal edema - Expanded Lower Extremity Exam Neurovascular/Tendon exam: Absent: motor deficit, sensory deficit, tendon deficit - Back Exam Back exam: Present: normal inspection - Neurological Exam Neurological exam: Present: alert, oriented X3 - Psychiatric Psychiatric exam: Present: normal affect, normal mood - Skin Skin exam: Present: warm, dry, intact, normal color Course - Reevaluation(s) Reevaluation #1: 75-year-old male with a history COPD comes in with worsening shortness of breath. She continues to have shortness of breath but some improvement after treatment here in the ER rotted ahead and admit. Time: 13:33 - Consultations Consultation #1: Discussed with , admit. Time: 13:33 Vital Signs Temperature 97.8 F 08/21/16 11:00 Pulse Rate 101 08/21/16 11:00 Respiratory Rate 24 08/21/16 11:00 Blood Pressure 131/81 08/21/16 11:00 O2 Sat by Pulse Oximetry 94 08/21/16 11:00 Temperature 97.8 F 08/21/16 11:00 Pulse Rate 52 08/21/16 12:38 Respiratory Rate 16 08/21/16 13:23 Blood Pressure 109/56 08/21/16 12:38 O2 Sat by Pulse Oximetry 94 08/21/16 13:23 Oxygen Delivery Oxygen Delivery Nasal Cannula Shortness of Breath/Dyspnea - Lab Data Lab results reviewed: Yes I reviewed the patient's lab results. Result diagrams: 08/21/16 11:52 08/21/16 11:52 Lab Results 08/21/16 08/21/16 08/21/16 Range/Units 11:52 11:52 11:52 WBC 8.1 (4.3-11.1) K/mcL RBC 4.59 (4.19-5.50) M/mcL Hgb 14.3 (12.9-16.9) g/dL Hct 41.4 (37.5-50.1) % MCV 90.2 (83.0-100.0) fL MCH 31.2 (28.0-33.3) pg MCHC 34.5 (31.6-35.5) g/dL RDW 13.3 (11.5-14.5) % Plt Count 166 (140-400) K/mcL MPV 8.2 L (9.4-12.4) fL Immature Gran % 0.6 (0-4) % Seg Neutrophils % 65.0 % Lymphocytes % 19.5 % Monocytes % 10.2 % Eosinophils % 4.1 % Basophils % 0.6 % Neutrophils # 5.3 (1.6-8.9) K/mcL Lymphocytes # 1.6 (0.6-4.6) K/mcL Monocytes # 0.8 (0.0-1.3) K/mcL Eosinophils # 0.3 (0.0-0.6) K/mcL Basophils # 0.1 (0.0-0.2) K/mcL Sodium 133 L (136-145) mEq/L Potassium 4.4 (3.5-4.5) mEq/L Chloride 98 (98-109) mEq/L Carbon Dioxide 27 (19-29) mEq/L BUN 13 (8-26) mg/dL Creatinine 1.09 (0.72-1.25) mg/dL Est GFR ( Amer) > 60 (> 60) Est GFR (Non-Af Amer) > 60 (> 60) BUN/Creatinine Ratio 12 (6-26) Glucose 141 H (70-99) mg/dL Calculated Osmolality 278 L (280-300) Lactic Acid 1.9 (0.5-2.2) mmol/L Calcium 9.3 (8.6-10.8) mg/dL Troponin I (0-0.03) ng/mL B-Natriuretic Peptide (0-100) pg/mL 08/21/16 08/21/16 Range/Units 11:52 11:52 WBC (4.3-11.1) K/mcL RBC (4.19-5.50) M/mcL Hgb (12.9-16.9) g/dL Hct (37.5-50.1) % MCV (83.0-100.0) fL MCH (28.0-33.3) pg MCHC (31.6-35.5) g/dL RDW (11.5-14.5) % Plt Count (140-400) K/mcL MPV (9.4-12.4) fL Immature Gran % (0-4) % Seg Neutrophils % % Lymphocytes % % Monocytes % % Eosinophils % % Basophils % % Neutrophils # (1.6-8.9) K/mcL Lymphocytes # (0.6-4.6) K/mcL Monocytes # (0.0-1.3) K/mcL Eosinophils # (0.0-0.6) K/mcL Basophils # (0.0-0.2) K/mcL Sodium (136-145) mEq/L Potassium (3.5-4.5) mEq/L Chloride (98-109) mEq/L Carbon Dioxide (19-29) mEq/L BUN (8-26) mg/dL Creatinine (0.72-1.25) mg/dL Est GFR ( Amer) (> 60) Est GFR (Non-Af Amer) (> 60) BUN/Creatinine Ratio (6-26) Glucose (70-99) mg/dL Calculated Osmolality (280-300) Lactic Acid (0.5-2.2) mmol/L Calcium (8.6-10.8) mg/dL Troponin I 0.00 (0-0.03) ng/mL B-Natriuretic Peptide 76 (0-100) pg/mL - Radiology Data Radiology results reviewed: Yes I reviewed the patient's radiology results. Chest X-Ray 08/21/16 11:19 IMPRESSION: No acute cardiopulmonary process. D/ / 08/21/2016 11:56:25 Madhuri Hanna MD / [facility] Interpreting Provider: Madhuri Hanna MD - EKG Data EKG attestation: Yes I reviewed and interpreted this EKG. EKG shows normal: Reports: sinus rhythm Rate: Reports: normal Rhythm: Reports: NSR Interpretation: Reports: no acute changes
[2016-08-21 11:59] LABS: Basophils # 0.1 K/mcL (0.0-0.2); Basophils % 0.6 %; Eosinophils # 0.3 K/mcL (0.0-0.6); Eosinophils % 4.1 %; Hematocrit 41.4 % (37.5-50.1); Hemoglobin 14.3 g/dL (12.9-16.9); Immature Granulocytes % 0.6 % (0-4); Lymphocytes # 1.6 K/mcL (0.6-4.6); Lymphocytes % 19.5 %; Mean Corpuscular HGB Conc 34.5 g/dL (31.6-35.5); Mean Corpuscular Hemoglobin 31.2 pg (28.0-33.3); Mean Corpuscular Volume 90.2 fL (83.0-100.0); Mean Platelet Volume 8.2 fL (9.4-12.4); Monocytes # 0.8 K/mcL (0.0-1.3); Monocytes % 10.2 %; Neutrophils # 5.3 K/mcL (1.6-8.9); Platelet Count 166 K/mcL (140-400); Red Blood Count 4.59 M/mcL (4.19-5.50); Red Cell Distribution Width 13.3 % (11.5-14.5)
[2016-08-21 12:11] LABS: BUN/Creatinine Ratio 12 (6-26); Blood Urea Nitrogen 13 mg/dL (8-26); Calcium 9.3 mg/dL (8.6-10.8); Carbon Dioxide 27 mEq/L (19-29); Chloride 98 mEq/L (98-109); Glucose 141 mg/dL (70-99); Osmolality,Calculated 278 (280-300); Potassium 4.4 mEq/L (3.5-4.5); Sodium 133 mEq/L (136-145); eGFR For African Americans > 60 (> 60); eGFR For Non-African Americans > 60 (> 60)
[2016-08-21] MEDS ORDERED: Ondansetron 4 MG/2 ML VIAL IVP PRN (16:41)
[2016-08-21] MEDS ORDERED: Acetaminophen 325 MG TABLET PO PRN (16:41)
[2016-08-21] MEDS ORDERED: Naloxone 0.4 MG/ML INJ IVP PRN (16:41)
[2016-08-21] MEDS: Furosemide 20 MG TABLET PO SCH (17:00)
[2016-08-21] MEDS: Ipratropium/Albuterol Neb 3 ML IH SCH ×2 (19:54→23:30)
[2016-08-22] MEDS: MethylPREDNISolone 40 MG/ML VIAL IVP SCH ×2 (00:31→07:43)
[2016-08-22] MEDS: Ipratropium/Albuterol Neb 3 ML IH SCH ×5 (04:04→20:21)
[2016-08-22 05:02] LABS: Basophils % 0.1 %; Hematocrit 38.5 % (37.5-50.1); Hemoglobin 13.3 g/dL (12.9-16.9); Immature Granulocytes % 0.6 % (0-4); Lymphocytes # 0.8 K/mcL (0.6-4.6); Lymphocytes % 11.5 %; Mean Corpuscular HGB Conc 34.5 g/dL (31.6-35.5); Mean Corpuscular Hemoglobin 31.1 pg (28.0-33.3); Mean Platelet Volume 8.7 fL (9.4-12.4); Monocytes # 0.1 K/mcL (0.0-1.3); Monocytes % 1.2 %; Neutrophils # 5.9 K/mcL (1.6-8.9); Platelet Count 163 K/mcL (140-400); Red Blood Count 4.28 M/mcL (4.19-5.50); Red Cell Distribution Width 13.2 % (11.5-14.5); Segmented Neutrophils % 86.6 %
[2016-08-22 05:16] LABS: BUN/Creatinine Ratio 18 (6-26); Blood Urea Nitrogen 23 mg/dL (8-26); Calcium 8.8 mg/dL (8.6-10.8); Carbon Dioxide 21 mEq/L (19-29); Chloride 99 mEq/L (98-109); Glucose 211 mg/dL (70-99); Osmolality,Calculated 282 (280-300); Potassium 4.7 mEq/L (3.5-4.5); Sodium 131 mEq/L (136-145); eGFR For African Americans > 60 (> 60); eGFR For Non-African Americans 54 (> 60)
[2016-08-22] MEDS: amLODIPine 5 MG TABLET PO SCH (07:42)
[2016-08-22] MEDS: Furosemide 20 MG TABLET PO SCH (07:42)
[2016-08-22] MEDS: Lisinopril 20 MG TABLET PO SCH (07:42)
[2016-08-22] MEDS ORDERED: 0.9 % Sodium Chloride 500 ML IVC ONE (08:09)
[2016-08-22] MEDS ORDERED: *HR* Dextrose 50 % in Water (Syg) 50 ML SYRINGE IVP PRN (10:24)
[2016-08-22] MEDS ORDERED: Dextrose Gel 15 GM PO PRN ×2 (10:24)
[2016-08-22] MEDS ORDERED: D5% in Water 1,000 ML IVC PRN (10:24)
--- NOTE | 2016-08-22 10:26 | Internal Med History&Physical ---
Date of Encounter: 08/21/16 Time of Encounter: 16:00 Assessment and Plan (1) Acute exacerbation of chronic obstructive pulmonary disease (COPD) Current visit: Yes Status: Acute Continue IV steroids, scheduled bronchodilators and supplemental oxygen. Wean down FiO2 as tolerated, will require home oxygen evaluation prior to discharge. Patient was noted to be on inhaled corticosteroids at home and was also discharged on Spiriva, according to previous discharge, however current home medications do not reflect these. (2) History of tobacco abuse Current visit: Yes Status: Inactive (3) Alcohol use Current visit: Yes Status: Chronic No signs and symptoms of alcohol withdrawal at this time. Continue to monitor. (4) Diastolic heart failure Current visit: Yes Status: Chronic Continue diuretics and beta norberto, RODGER inhibitor. Qualifiers: Heart failure chronicity: chronic Qualified Code(s): I50.32 - Chronic diastolic (congestive) heart failure (5) Essential hypertension Current visit: Yes Status: Chronic Internal Medicine - H&P: HPI Chief complaint: Shortness of breath Admitted From: Emergency Dept Plans for Post Hospital Care: Home History of present illness: Mr. Flores is a 75 year old male with history of chronic tobacco and alcohol abuse, COPD, who presents with complaints of worsening shortness of breath. Patient was admitted and discharged after being treated for acute COPD in July 2016. He has done well since then but has been feeling short of breath for the last 3-4 days, associated with wheezing and intermittent chest tightness. He reports difficulty in taking a deep breath and his symptoms are aggravated on exertion. He also reports productive cough with clear mucus. No fever, chills , nausea, emesis, dizziness or syncope. He reports quitting smoking a long time back but continues to drink alcohol, at least 6-8 beers per day. Past Med Surg Social Fam HX - Past Medical History Medical history: CHF, COPD, hypertension Psychiatric history: no psych history - Past Surgical History Surgical History: hip replacement (right) - Social History Smoking Status: Former smoker Smokeless Tobacco Status: No Alcohol use: heavy, recent Drug use: none Occupational status: retired Current living situation: Home - Independent Activity Level: Independent ambulation Recent Out of Country Travel Within the Last 8 Weeks: No - Family History Father Living Status: Hx Family Cardiac Disorders: Yes ([place]) Hx Family Respiratory Disorders: Yes (COPD) Hx Family Cancer: No Hx Family GI Disorders: Yes (Hernia and gallbladder surgery) Hx Family Endocrine Disorder: No Hx Family Neuromuscular Disorders: No Hx Family Neurologic Disorders: No Hx Family HEENT Disorders: No Hx Family Autoimmune Disorders: No Internal Medicine - H&P: Meds Amlodipine Besylate 10 mg PO DAILY 09/15/15 [History] Benazepril HCl [Lotensin] 40 mg PO DAILY 09/15/15 [History] Albuterol Neb [Proventil Neb] 2.5 mg IH Q4HR 30 Days 09/20/15 [Rx] Albuterol Sulfate [Albuterol Inhaler] 1 puff IH Q4HR #1 hfa.aer.ad 09/20/15 [Rx] Furosemide [Lasix] 20 mg PO BID 30 Days 09/20/15 [Rx] Losartan Potassium [Cozaar] 50 mg PO BID 07/12/16 [History] Allergies No Known Allergies Allergy (Verified 08/21/16 11:00) All Systems PM: A 10-system review of systems was performed and is negative for pertinent findings except as documented above in the HPI. - Constitutional Constitutional: no chills, no fever(s), no night sweats - EENT Eyes: no change in vision, no discharge, no pain, no photophobia Ears: no ear discharge, no ear pain, no tinnitus Nose, mouth and throat: no dysphagia, no nasal discharge, no neck pain, no sore throat - Cardiovascular Cardiovascular ROS IM: no chest pain, no diaphoresis, no dyspnea, no lightheadedness, no palpitations, no syncope - Respiratory Respiratory: cough, dyspnea, dyspnea on exertion, wheezing, excessive phlegm production - Gastrointestinal Gastrointestinal: no abdominal pain, no diarrhea, no hematemesis, no hematochezia, no melena, no nausea, no vomiting - Musculoskeletal Musculoskeletal ROS IM: no numbness, no tingling - Integumentary Integumentary IM: no rash, no unusual bruising - Neurological Neurological ROS: no confusion, no convulsions, no focal weakness, no numbness, no tingling, no tremor(s) - Hematologic/Lymphatic Hematologic/Lymphatic: no easy bruising - Constitutional Vitals: Temp Pulse Resp BP Pulse Ox 97.3 F L 104 16 135/81 95 08/22/16 07:06 08/22/16 07:06 08/22/16 08:32 08/22/16 07:06 08/22/16 08:32 General appearance: Present: A&O X 3, answers questions appropriately - Respiratory Respiratory exam: Present: decreased breath sounds (Decreased air entry bilaterally), wheezes (Occasional intermittent wheezing). Absent: accessory muscle use, rales, rhonchi - Cardiovascular Cardiovascular exam: Present: RRR, +S1, +S2, tachycardia. Absent: diastolic murmur, gallop, rubs, systolic murmur - GI/Abdominal GI/Abdominal exam: Present: normal bowel sounds, soft, no peritoneal signs. Absent: distended, tenderness - Extremities Exam Extremities exam: Present: full ROM, warm, radial pulses palpable and symetrical. Absent: calf tenderness, cyanotic, pedal edema - Neurological Exam Neurological exam: Present: CN II-XII intact, oriented X3, no focal deficits. Absent: pronater drift, facial droop, speech deficit - Skin Skin exam: Present: dry, intact Internal Med - H&P Results - Labs CBC & Chem 7: 08/22/16 04:37 08/22/16 04:37 Labs: Short CBC 08/22/16 Range/Units 04:37 WBC 6.9 (4.3-11.1) K/mcL Hgb 13.3 (12.9-16.9) g/dL Hct 38.5 (37.5-50.1) % Plt Count 163 (140-400) K/mcL Neutrophils # 5.9 (1.6-8.9) K/mcL BMP 08/22/16 04:37 Sodium 131 L Potassium 4.7 H Chloride 99 Carbon Dioxide 21 BUN 23 D Creatinine 1.30 H Glucose 211 H Calcium 8.8
--- NOTE | 2016-08-22 11:27 | Electrocardiograph Report ---
[place] [id number] Test Date: 2016-08-21 Pat Name: Doc Flores Department: 102 Room: 2A14 Gender: M [employer] Worker: : 1940 Requested By: Seng Arreguin Order Number: [id number] Reading MD: Kecia Rodriguez Measurements Intervals [place] Rate: 102 P: 86 NM: 151 QRS: 63 QRSD: 86 T: 73 QT: 330 QTc: 389 Interpretive Statements SINUS TACHYCARDIA LOW QRS VOLTAGE IN PRECORDIAL LEADS [QRS DEFLECTION < 1.0 mV IN CHEST LEADS] SEPTAL MYOCARDIAL INFARCTION, OF INDETERMINATE AGE Electronically Signed On 08-22-2016 11:26:15 EDT by Kecia Rodriguez
[2016-08-22] MEDS: Insulin LISPRO 300 UNITS/3 ML VIAL SQ SCH ×2 (11:40→17:03)
[2016-08-22] MEDS ORDERED: Albuterol 2.5 MG/3 ML NEBULIZER IH PRN (12:11)
--- NOTE | 2016-08-22 12:47 | Internal Med Progress Note ---
Date of Encounter: 08/22/16 Time of Encounter: 12:46 - Assessment and plan (1) Acute exacerbation of chronic obstructive airways disease Current Visit: Yes Status: Acute Assessment and plan: Continue nebs, steroids change steroids to po Add Azithromycin po Continue O2 supplement, not on home O2 , will need qualification prior to discharge (2) Heart failure Current Visit: Yes Status: Chronic Assessment and plan: Stable at baseline Diuresis held due to slight dehydration Will resume prn Continue ACEI, BB Qualifiers: Heart failure type: diastolic Heart failure chronicity: chronic Qualified Code(s): I50.32 - Chronic diastolic (congestive) heart failure (3) Alcohol use Current Visit: Yes Status: Chronic Assessment and plan: Monitor for withdrawal (4) Essential hypertension Current Visit: Yes Status: Chronic Assessment and plan: Controlled, continue home meds - Subjective Interval history: Seen and evaluated at bedside Reports coughing fits when receiving nebulized albuterol/ipratropium Denies new complains and feels better from clinical state on admission Of note, Cr has slightly increased from 1.09-1.30-hold diuretics, give 500cc bolus and change solumedrol to prednisone - Constitutional Vitals: Temp Pulse Resp BP Pulse Ox 97.8 F 108 18 122/71 97 08/22/16 11:18 08/22/16 11:18 08/22/16 11:18 08/22/16 11:18 08/22/16 11:18 General appearance: Present: A&O X 3, pleasant, no acute distress, answers questions appropriately - Head Head exam: Present: atraumatic, normocephalic - Eye Eye exam: Present: PERRL, conjuntiva pink, sclera anicteric Pupils: Present: PERRL - Neck Neck exam general surgery: Present: supple, trachea midline. Absent: lymphadenopathy - Respiratory Respiratory exam: Present: CTAB. Absent: accessory muscle use, rales, rhonchi, wheezes - Cardiovascular Cardiovascular exam: Present: RRR, +S1, +S2. Absent: diastolic murmur, gallop, rubs, systolic murmur - GI/Abdominal GI/Abdominal exam: Present: normal bowel sounds, soft, no peritoneal signs. Absent: distended, tenderness - Extremities Exam Extremities exam: Present: warm, radial pulses palpable and symetrical. Absent : calf tenderness, cyanotic, pedal edema - Neurological Exam Neurological exam: Present: alert, CN II-XII intact, oriented X3, no focal deficits. Absent: pronater drift, facial droop, speech deficit - Skin Skin exam: Present: dry, intact Internal Medicine: Result - Labs CBC & Chem 7: 08/22/16 04:37 08/22/16 04:37 Labs: Short CBC 08/22/16 Range/Units 04:37 WBC 6.9 (4.3-11.1) K/mcL Hgb 13.3 (12.9-16.9) g/dL Hct 38.5 (37.5-50.1) % Plt Count 163 (140-400) K/mcL Neutrophils # 5.9 (1.6-8.9) K/mcL BMP 08/22/16 04:37 Sodium 131 L Potassium 4.7 H Chloride 99 Carbon Dioxide 21 BUN 23 D Creatinine 1.30 H Glucose 211 H Calcium 8.8 Consult Discharge Plan - Plan Referrals: Gary Cosby Jr, MD [Primary Care Provider] - (web request sent on 08/22/16 )
[2016-08-22] MEDS: predniSONE 20 MG TABLET PO SCH (17:02)
[2016-08-22] MEDS: *HR* Heparin 5,000 UNIT/ML VIAL SQ SCH (17:04)
[2016-08-22] MEDS ORDERED: Insulin LISPRO 300 UNITS/3 ML VIAL SQ SCH (21:00)
[2016-08-23] MEDS: *HR* Heparin 5,000 UNIT/ML VIAL SQ SCH (05:43)
[2016-08-23 06:24] LABS: BUN/Creatinine Ratio 32 (6-26); Calcium 8.7 mg/dL (8.6-10.8); Carbon Dioxide 24 mEq/L (19-29); Chloride 101 mEq/L (98-109); Glucose 170 mg/dL (70-99); Osmolality,Calculated 286 (280-300); Potassium 4.8 mEq/L (3.5-4.5); Sodium 132 mEq/L (136-145); eGFR For African Americans > 60 (> 60); eGFR For Non-African Americans > 60 (> 60)
[2016-08-23 06:25] LABS: Blood Urea Nitrogen 35 mg/dL (8-26)
[2016-08-23] MEDS: Ipratropium/Albuterol Neb 3 ML IH SCH ×2 (07:39→11:18)
[2016-08-23] MEDS: Insulin LISPRO 300 UNITS/3 ML VIAL SQ SCH ×2 (08:00→12:04)
[2016-08-23] MEDS: predniSONE 20 MG TABLET PO SCH (08:00)
[2016-08-23] MEDS: amLODIPine 5 MG TABLET PO SCH (08:00)
[2016-08-23 09:52] LABS: Hemoglobin A1C 6.4 %
[2016-08-23 11:30] VITALS: BP 123/68
[2016-08-23] MEDS: Lisinopril 20 MG TABLET PO SCH (12:04)
--- NOTE | 2016-08-23 12:31 | Discharge Summary ---
Date of Encounter: 08/23/16 Time of Encounter: 08:00 - Discharge Diagnosis (1) Acute exacerbation of chronic obstructive airways disease Priority: Primary Status: Acute (2) Heart failure Priority: Secondary Status: Chronic Qualifiers: Heart failure type: diastolic Heart failure chronicity: chronic Qualified Code(s): I50.32 - Chronic diastolic (congestive) heart failure (3) Alcohol use Priority: Secondary Status: Chronic (4) Essential hypertension Priority: Secondary Status: Chronic (5) Prediabetes Priority: Secondary Status: Chronic - Discharge Medications Prescriptions: GuaiFENesin/Dextromethorphan [Robitussin/Dm] 10 ml PO Q6HR PRN #1 bottle PRN Reason: Cough predniSONE [PredniSONE] 40 mg PO DAILY #8 tab Home Medications: Amlodipine Besylate 10 mg PO DAILY 09/15/15 [History] Benazepril HCl [Lotensin] 40 mg PO DAILY 09/15/15 [History] Albuterol Neb [Proventil Neb] 2.5 mg IH Q4HR 30 Days 09/20/15 [Rx] Albuterol Sulfate [Albuterol Inhaler] 1 puff IH Q4HR #1 hfa.aer.ad 09/20/15 [Rx] Furosemide [Lasix] 20 mg PO BID 30 Days 09/20/15 [Rx] Albuterol Neb [Proventil Neb] 2.5 mg IH Q2H PRN inh 08/23/16 [Rx] GuaiFENesin/Dextromethorphan [Robitussin/Dm] 10 ml PO Q6HR PRN #1 bottle [Rx] predniSONE [PredniSONE] 40 mg PO DAILY #8 tab 08/23/16 [Rx] Allergies/Adverse Reactions: Allergies No Known Allergies Allergy (Verified 08/21/16 11:00) Date of admission: 08/21/16 13:39 Primary care physician: Gary Cosby Jr, MD Discharging clinician: Boris Corea date of discharge: 08/23/16 - Patient Status Disposition: Home, Self-Care Condition: Fair Functional capacity at discharge: independent ambulation Overall status at discharge: patient is progressing back to baseline - Discharge Instructions Follow Up With: Sarika Jin CNP [Advanced Practice Nurse] - 08/29/16 10:00 am Additional Instructions: FOLLOW UP WITH PCP STOP TAKING LOSARTAN - Diet and Activity Activity: resume usual activities as tolerated Diet: diabetic diet, low fat, low cholesterol, low salt diet Interval History: 75 year old male with history of chronic tobacco and alcohol abuse, COPD, who presents with complaints of worsening shortness of breath. Patient was admitted and discharged after being treated for acute COPD in July 2016. He has done well since then but has been feeling short of breath for the last 3-4 days, associated with wheezing and intermittent chest tightness. He reported difficulty in taking a deep breath and his symptoms are aggravated on exertion. He also reported productive cough with clear mucus. No fever, chills, nausea , emesis, dizziness or syncope. He reports quitting smoking a long time back but continues to drink alcohol, at least 6-8 beers per day. Hospital course: Mr. Flores is a 75 year old male who was admitted to observation for management of COPD exacerbation with hypoxia He rapidly improved with duonebs, steroids ad oxygen therapy Work up on admission includes CBC which was unremarkable, Chem showed some dehydration, hence he wa given 500cc bolus, and his diuresis was held. CXR did not show any infiltrates, his anemia was at baseline Patient seen a bedside this morning, reports remarkable improvement He needed 2L Oxygen for some hours upon presentation but improved and was weaned off oxygen His physical exam today is unremarkable, his renal function has returned to baseline It is noticed that he has hyperglycemia, his A1C was 6.0 one year ago and 6.4% today. Patient is a pre-diabetic, and needs to follow up with his PCP for monitoring He is otherwise stable to be discharged home to continue his Albuterol nebs, Spiriva, Prednisone at home Patient is noted to be on both Losartan and Lisinopril, he had mild dehydration as well as high normal potassium His Losartan was held and his Lisinopril and lasix were given, Losaran has been discontinued from his home meds list Patient educated about plan, verbalized understanding Follow up with PCP - Time Spent with Patient Total time spent providing and/or coordinating discharge services: Less than 30 minutes - Constitutional Vitals: Temp Pulse Resp BP Pulse Ox 97.9 F 99 17 123/68 97 08/23/16 11:29 08/23/16 11:29 08/23/16 11:29 08/23/16 11:29 08/23/16 11:29 General appearance: Present: A&O X 3, pleasant, no acute distress, answers questions appropriately - Head Head exam: Present: atraumatic, normocephalic - Eye Eye exam: Present: PERRL, conjuntiva pink, sclera anicteric Pupils: Present: PERRL - Neck Neck exam general surgery: Present: supple, trachea midline. Absent: lymphadenopathy - Respiratory Respiratory exam: Present: CTAB. Absent: accessory muscle use, rales, rhonchi, wheezes - Cardiovascular Cardiovascular exam: Present: RRR, +S1, +S2. Absent: diastolic murmur, gallop, rubs, systolic murmur - GI/Abdominal GI/Abdominal exam: Present: normal bowel sounds, soft, no peritoneal signs. Absent: distended, tenderness - Extremities Exam Extremities exam: Present: warm, radial pulses palpable and symetrical. Absent : calf tenderness, cyanotic, pedal edema - Neurological Exam Neurological exam: Present: alert, CN II-XII intact, oriented X3, no focal deficits. Absent: pronater drift, facial droop, speech deficit - Skin Skin exam: Present: dry, intact
== END 2016-08-23 13:46 | disposition home or self-care (01) ==
LOC: EMEROO 10:49 → 2ANU 10:49
PROVIDERS: ADMIT Internal Medicine; ATTEND Internal Medicine

== ENCOUNTER 2016-09-06 18:40 | Inpatient (IN) ==
[2016-09-06] MEDS ORDERED: Ipratropium/Albuterol Neb 3 ML IH ONE (19:19)
[2016-09-06] MEDS ORDERED: methylPREDNISolone 125 MG/2 ML VIAL IVP ONE (19:19)
--- NOTE | 2016-09-06 19:21 | Emergency Department Note ---
Disposition Clinical Impression: Hypoxia Dyspnea Qualifiers: Dyspnea type: unspecified Qualified Code(s): R06.00 - Dyspnea, unspecified Disposition: Admitted As Inpatient Condition: Fair Time of Disposition: 22:50 SOB HPI - General Chief Complaint: ED Shortness of Breath/Dyspnea Stated Complaint: YANIQUE Time Seen by Provider: 09/06/16 19:04 Source: patient Mode of arrival: ambulatory Limitations: no limitations Nursing Notes Reviewed: Yes Vital Signs Reviewed: Yes - History of Present Illness Patient is a 75-year-old male with past medical history of hypertension, CHF, COPD. He presents today due to shortness of breath for 3 days along with nonproductive cough. Patient and son who accompanies him states that the patient has been in and out of the hospital and ER multiple times over the past few months due to COPD exacerbations. He was seen this morning by pulmonology for PFTs. Since then, he has been increasingly more short of breath, especially with exertion. He also has left-sided chest pain that is a constant 2 out of 10, dull ache, no radiation, does not worsen with exertion. Denies any previous ID. At home, patient is not on oxygen, only uses albuterol, denies taking any other inhaled steroids or oral steroids such as prednisone. Denies fevers, abdominal pain, nausea, vomiting, diarrhea, productive phlegm. He has required BiPAP on previous hospital admissions but has never had to be intubated. He states he would want to be intubated if he was to decompensate. - Related Data Home Medications Medication Instructions Recorded Confirmed Amlodipine Besylate 10 mg PO DAILY 09/15/15 08/21/16 Benazepril HCl [Lotensin] 40 mg PO DAILY 09/15/15 08/21/16 Previous Rx's Medication Instructions Recorded Albuterol Neb [Proventil Neb] 2.5 mg IH Q4HR 30 Days 09/20/15 Albuterol Sulfate [Albuterol 1 puff IH Q4HR #1 [id number].[email or web address] 09/20/15 Inhaler] Furosemide [Lasix] 20 mg PO BID 30 Days 09/20/15 Albuterol Neb [Proventil Neb] 2.5 mg IH Q2H PRN inh 08/23/16 GuaiFENesin/Dextromethorphan 10 ml PO Q6HR PRN #1 bottle 08/23/16 [Robitussin/Dm] Tiotropium [Spiriva] 18 mcg IH 0700 #1 kit 08/23/16 predniSONE [PredniSONE] 40 mg PO DAILY #8 tab 08/23/16 Allergies Allergy/AdvReac Type Severity Reaction Status Date / Time No Known Allergies Allergy Verified 08/21/16 11:00 All systems ED: reviewed and negative except as stated. Constitutional: Denies: fever Cardiovascular: Reports: chest pain, dyspnea on exertion Respiratory: Reports: cough, dyspnea, wheezes. Denies: stridor, sputum production Gastrointestinal: Denies: abdominal pain, nausea, vomiting, diarrhea Past Medical History - Past Medical History Attestation: Yes The following information was validated with the patient. Source: patient Medical history: Reports: CHF, COPD, hypertension Surgical history: Reports: hip replacement (right) Psychiatric history: Reports: no psych history - Social History Smoking Status: Former smoker Smokeless Tobacco Status: No Alcohol use: Reports: heavy, recent Drug use: Reports: none Physical Exam - General Limitations: no limitations General appearance: alert - Head Head exam: atraumatic, normocephalic, normal inspection - Eye Eye exam: Present: normal appearance, PERRL, EOMI - ENT ENT exam: normal exam, normal oropharynx, mucous membranes moist - Neck Neck exam: Present: normal inspection, full ROM, trachea midline - Chest Chest inspection: Present: normal inspection, symmetric chest wall rise - Respiratory Respiratory exam: Present: wheezes (bilateral upper and lower lobes), other ( mild accessory muscle use at rest) - Cardiovascular Cardiovascular exam: Present: normal rhythm, tachycardia, normal heart sounds - Abdominal Exam Abdominal exam: Present: soft, Non-Tender. Absent: tenderness, distention, guarding, rebound, rigidity - Extremities Exam Extremities exam: Present: normal inspection, full ROM. Absent: tenderness, pedal edema - Neurological Exam Neurological exam: Present: alert, oriented X3 - Psychiatric Psychiatric exam: Present: normal affect, normal mood - Skin Skin exam: Present: warm, dry, intact, normal color Course Course Narrative: Patient is tachycardic, mildly hypotensive in 90s/50s. He has moderate wheezes throughout on lung exam. Abdominal exam benign. Satting 92% on room air, she was placed on 2 L nasal cannula oxygen. We will also give 1 L normal saline bolus for blood pressure. Due to wheezing, multiple COPD exacerbations in the past, we will workup for COPD exacerbation. Chest x-ray, EKG, troponin, BNP ordered along with duonebs, solu-medrol. Will give IV levaquin for COPD exacerbation as well. D-dimer obtained due to tachycardia and shortness of breath, low concern for PE. 20:12 Trop negative. EKG sinus tach with no acute ST changes. chest x-ray negative for any acute cardiopulmonary process. CBC shows no elevation in white blood cell count. BMP shows low sodium and chloride, this is chronic for the patient. However, values are mildly lower than usual baseline. Normal saline bolus is infusing to help with this and hypertension. Repeat blood pressure is 110/70. Patient has improvement in breathing after duonebs. D- dimer was elevated, discussed CTA with the patient. He he was agreeable with this plan to assess for PE. He had a CT scan of the chest about a month ago that was negative for PE but did show descending thoracic aortic aneurysm. 22:47 CT negative for pulmonary embolism. It again demonstrated descending thoracic aortic aneurysm measuring 4.4 cm. Patient reassessed. He is still feeling mildly short of breath. He was ambulated around the room on room air and desatted to 88%. Patient was agreeable with admission for possible COPD exacerbation and continued oxygen and albuterol therapy. Chest X-Ray 09/06/16 19:19 IMPRESSION: No acute findings. D/ / Yisel Mesa MD / Yisel Mesa MD Interpreting Provider: Yisel Mesa MD Chest CTA 09/06/16 20:11 IMPRESSION: No evidence of pulmonary embolism or acute pulmonary abnormality. 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 Vascular surgical consultation is suggested. D/ / 09/06/2016 21:46:33 Tommy Morelos MD / tarik Interpreting Provider: Tommy Morelos MD Vital Signs Temperature 97.9 F 09/06/16 18:58 Pulse Rate 104 09/06/16 18:58 Respiratory Rate 20 09/06/16 18:58 Blood Pressure 95/51 09/06/16 18:58 O2 Sat by Pulse Oximetry 92 09/06/16 18:58 Temperature 97.9 F 09/06/16 18:58 Pulse Rate 102 09/06/16 22:47 Respiratory Rate 20 09/06/16 22:47 Blood Pressure 138/78 09/06/16 22:47 O2 Sat by Pulse Oximetry 94 09/06/16 22:47 Oxygen Delivery Oxygen Delivery Nasal Cannula Shortness of Breath/Dyspnea - [facility] Narrative Medical decision making narrative: Trop negative. EKG sinus tach with no acute ST changes. chest x-ray negative for any acute cardiopulmonary process. CBC shows no elevation in white blood cell count. BMP shows low sodium and chloride, this is chronic for the patient. However, values are mildly lower than usual baseline. Normal saline bolus is infusing to help with this and hypertension. Repeat blood pressure is 110/70. Patient has improvement in breathing after duonebs. D-dimer was elevated, discussed CTA with the patient. He he was agreeable with this plan to assess for PE. He had a CT scan of the chest about a month ago that was negative for PE but did show descending thoracic aortic aneurysm. 22:47 CT negative for pulmonary embolism. It again demonstrated descending thoracic aortic aneurysm measuring 4.4 cm. Patient reassessed. He is still feeling mildly short of breath. He was ambulated around the room on room air and desatted to 88%. Patient was agreeable with admission for possible COPD exacerbation and continued oxygen and albuterol therapy. - Medical Records Medical records reviewed: Yes I reviewed the patient's medical records. - Lab Data Lab results reviewed: Yes I reviewed the patient's lab results. Result diagrams: 09/06/16 19:32 09/06/16 19:32 Lab Results 09/06/16 09/06/16 09/06/16 Range/Units 19:32 19:32 19:32 WBC 10.7 (4.3-11.1) K/mcL RBC 4.04 L (4.19-5.50) M/mcL Hgb 12.5 L (12.9-16.9) g/dL Hct 34.9 L (37.5-50.1) % MCV 86.4 (83.0-100.0) fL MCH 30.9 (28.0-33.3) pg MCHC 35.8 H (31.6-35.5) g/dL RDW 12.5 (11.5-14.5) % Plt Count 194 (140-400) K/mcL MPV 8.7 L (9.4-12.4) fL Immature Gran % 0.5 (0-4) % Seg Neutrophils % 69.7 % Lymphocytes % 9.7 % Monocytes % 9.1 % Eosinophils % 10.6 % Basophils % 0.4 % Neutrophils # 7.5 (1.6-8.9) K/mcL Lymphocytes # 1.0 (0.6-4.6) K/mcL Monocytes # 1.0 (0.0-1.3) K/mcL Eosinophils # 1.1 H (0.0-0.6) K/mcL Basophils # 0.0 (0.0-0.2) K/mcL D-Dimer (0-500) ng/mLFEU VBG pH (7.32-7.42) pH Units VBG pCO2 (41-51) mmHg VBG pO2 (25-40) mmHg VBG HCO3 (21-27) mEq/L Sodium 123 L (136-145) mEq/L Potassium 4.5 (3.5-4.5) mEq/L Chloride 86 L (98-109) mEq/L Carbon Dioxide 29 (19-29) mEq/L BUN 12 (8-26) mg/dL Creatinine 0.95 (0.72-1.25) mg/dL Est GFR ( Amer) > 60 (> 60) Est GFR (Non-Af Amer) > 60 (> 60) BUN/Creatinine Ratio 13 (6-26) Glucose 198 H (70-99) mg/dL Calculated Osmolality 261 L (280-300) Calcium 9.0 (8.6-10.8) mg/dL Troponin I 0.00 (0-0.03) ng/mL B-Natriuretic Peptide (0-100) pg/mL 09/06/16 09/06/16 09/06/16 Range/Units 19:32 19:32 20:34 WBC (4.3-11.1) K/mcL RBC (4.19-5.50) M/mcL Hgb (12.9-16.9) g/dL Hct (37.5-50.1) % MCV (83.0-100.0) fL MCH (28.0-33.3) pg MCHC (31.6-35.5) g/dL RDW (11.5-14.5) % Plt Count (140-400) K/mcL MPV (9.4-12.4) fL Immature Gran % (0-4) % Seg Neutrophils % % Lymphocytes % % Monocytes % % Eosinophils % % Basophils % % Neutrophils # (1.6-8.9) K/mcL Lymphocytes # (0.6-4.6) K/mcL Monocytes # (0.0-1.3) K/mcL Eosinophils # (0.0-0.6) K/mcL Basophils # (0.0-0.2) K/mcL D-Dimer 1089 H (0-500) ng/mLFEU VBG pH 7.46 H (7.32-7.42) pH Units VBG pCO2 40 L (41-51) mmHg VBG pO2 168 H (25-40) mmHg VBG HCO3 28.4 H (21-27) mEq/L Sodium (136-145) mEq/L Potassium (3.5-4.5) mEq/L Chloride (98-109) mEq/L Carbon Dioxide (19-29) mEq/L BUN (8-26) mg/dL Creatinine (0.72-1.25) mg/dL Est GFR ( Amer) (> 60) Est GFR (Non-Af Amer) (> 60) BUN/Creatinine Ratio (6-26) Glucose (70-99) mg/dL Calculated Osmolality (280-300) Calcium (8.6-10.8) mg/dL Troponin I (0-0.03) ng/mL B-Natriuretic Peptide 66 (0-100) pg/mL - Radiology Data Radiology results reviewed: Yes I reviewed the patient's radiology results. Chest X-Ray 09/06/16 19:19 IMPRESSION: No acute findings. D/ / Yisel Mesa MD / Yisel Mesa MD Interpreting Provider: Yisel Mesa MD Chest CTA 09/06/16 20:11 IMPRESSION: No evidence of pulmonary embolism or acute pulmonary abnormality. 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 Vascular surgical consultation is suggested. D/ / 09/06/2016 21:46:33 Tommy Morelos MD / tarik Interpreting Provider: Tommy Morelos MD - EKG Data EKG attestation: Yes I reviewed and interpreted this EKG. EKG results narrative: 09/06/2016 at 19:20. Sinus tachycardia. Rate 101. OH 165. QRS 90. QTc 387. Normal axis. Evidence of right bundle branch block that is present on previous EKG. No acute ST elevation or depression. Unchanged from previous EKG on 08/21/2016 Kiersten - Kiersten Situation: Demographics, MOA Background: Presenting Complaint, Relevant PMH, Meds, & Allergies Assessment: Vital Signs, Course and respsone to treatment, Exam Concerns, Patient/Family Expectation, Pertinant Lab Results, Outstanding Labs Recommendation: Barrier(s) to disposition, Recommendation based on pending studies, treatments, or consults Kiersten Report Given to: Dr. Bettie Burch Repor Time: 00:05
[2016-09-06] MEDS ORDERED: 0.9 % Sodium Chloride 1,000 ML IVC ONE (19:28)
[2016-09-06 19:41] LABS: Basophils % 0.4 %; Eosinophils # 1.1 K/mcL (0.0-0.6); Eosinophils % 10.6 %; Hematocrit 34.9 % (37.5-50.1); Hemoglobin 12.5 g/dL (12.9-16.9); Immature Granulocytes % 0.5 % (0-4); Lymphocytes % 9.7 %; Mean Corpuscular HGB Conc 35.8 g/dL (31.6-35.5); Mean Corpuscular Hemoglobin 30.9 pg (28.0-33.3); Mean Corpuscular Volume 86.4 fL (83.0-100.0); Mean Platelet Volume 8.7 fL (9.4-12.4); Monocytes % 9.1 %; Neutrophils # 7.5 K/mcL (1.6-8.9); Platelet Count 194 K/mcL (140-400); Red Blood Count 4.04 M/mcL (4.19-5.50); Red Cell Distribution Width 12.5 % (11.5-14.5); Segmented Neutrophils % 69.7 %
[2016-09-06] MEDS ORDERED: Levofloxacin 750 MG/150 ML 750 MG/150 ML BAG IVPB ONE (19:48)
[2016-09-06 19:53] LABS: BUN/Creatinine Ratio 13 (6-26); Blood Urea Nitrogen 12 mg/dL (8-26); Carbon Dioxide 29 mEq/L (19-29); Chloride 86 mEq/L (98-109); Glucose 198 mg/dL (70-99); Osmolality,Calculated 261 (280-300); Potassium 4.5 mEq/L (3.5-4.5); Sodium 123 mEq/L (136-145); eGFR For African Americans > 60 (> 60); eGFR For Non-African Americans > 60 (> 60)
[2016-09-06 20:42] LABS: VBG HCO3 28.4 mEq/L (21-27); VBG PH 7.46 pH Units (7.32-7.42)
--- NOTE | 2016-09-07 03:36 | Internal Med History&Physical ---
Date of Encounter: 09/07/16 Time of Encounter: 03:34 Assessment and Plan (1) DVT prophylaxis Current visit: No Status: Acute We will provide DVT prophylaxis with Lovenox. (2) Acute hypoxemic respiratory failure Current visit: No Status: Resolved Patient's oxygen saturation dropped to 88% on room air with minimal exertion. Treat him with supplemental oxygen by nasal cannula. We will check 6 minute walk test prior to discharge. (3) Acute exacerbation of chronic obstructive pulmonary disease (COPD) Current visit: No Status: Acute Patient is wheezing, hypoxic, I have reviewed his PFTs from outpatient done yesterday. These reveal severe obstructive pattern. Plan: We will treat him with prednisone, inhaled albuterol and Atrovent and supplemental oxygen. (4) Hypertension Current visit: No Status: Chronic Continue home meds. Qualifiers: Hypertension type: essential hypertension Qualified Code(s): I10 - Essential (primary) hypertension (5) Alcohol use Current visit: No Status: Chronic Alcohol withdrawal precautions. We will treat him with multivitamins and thiamine and folate acid.. Internal Medicine - H&P: HPI Chief complaint: Shortness of breath Admitted From: Emergency Dept Plans for Post Hospital Care: Home History of present illness: Mr. Flores is a 75 year old male with past medical history significant for COPD who presented to the hospital for shortness of breath. He had increasing shortness of breath for the last 3 days, today it became severe exacerbation by minimal exertion such as walking to the bathroom, associated with dry cough no chest pain. Symptoms did not improve in spite of refusing inhaled bronchodilators up to 8 times a day. He decided to present to the hospital. Workup done in emergency department was negative for PE and pneumonia. He was treated with albuterol and referred for admission. A 10 point review of system was negative except for shortness of breath Past medical history as above Family history negative for premature coronary artery disease in both parents. Social history patient quit smoking more than 20 years ago, drinks 6 beers daily. Denies recreational drug use. Past Med Surg Social Fam HX - Past Medical History Medical history: CHF, COPD, hypertension Psychiatric history: no psych history - Past Surgical History Surgical History: hip replacement - Social History Smoking Status: Former smoker Smokeless Tobacco Status: No Alcohol use: heavy, recent Drug use: none - Family History Mother Living Status: Hx Family Endocrine Disorder: Yes (DM) Father Living Status: Hx Family Cardiac Disorders: Yes (ND) Hx Family Respiratory Disorders: Yes (COPD) Hx Family Cancer: No Hx Family GI Disorders: Yes (Hernia and gallbladder surgery) Hx Family Endocrine Disorder: No Hx Family Neuromuscular Disorders: No Hx Family Neurologic Disorders: No Hx Family HEENT Disorders: No Hx Family Autoimmune Disorders: No Internal Medicine - H&P: Meds Amlodipine Besylate 10 mg PO DAILY 09/15/15 [History] Furosemide [Lasix] 20 mg PO BID 30 Days 09/20/15 [Rx] Albuterol Neb [Proventil Neb] 2.5 mg IH Q2H PRN inh 08/23/16 [Rx] Allergies No Known Allergies Allergy (Verified 08/21/16 11:00) All Systems PM: A 10-system review of systems was performed and is negative for pertinent findings except as documented above in the HPI. - Constitutional Vitals: Temp Pulse Resp BP Pulse Ox 98.0 F 108 20 0/0 95 09/07/16 00:21 09/07/16 00:21 09/07/16 00:40 09/07/16 00:40 09/07/16 00:21 - Head Head exam: Present: atraumatic, normocephalic - Neck Neck exam general surgery: Present: supple, trachea midline. Absent: lymphadenopathy - Respiratory Respiratory exam: Present: prolonged expiratory phase, wheezes (Expiratory wheezes bilaterally). Absent: accessory muscle use, rales, rhonchi - Cardiovascular Cardiovascular exam: Present: RRR, +S1, +S2. Absent: diastolic murmur, gallop, rubs, systolic murmur - GI/Abdominal GI/Abdominal exam: Present: normal bowel sounds, soft, no peritoneal signs. Absent: distended, tenderness - Extremities Exam Extremities exam: Present: warm, radial pulses palpable and symetrical. Absent : calf tenderness, cyanotic, pedal edema - Neurological Exam Neurological exam: Present: CN II-XII intact, oriented X3, no focal deficits. Absent: pronater drift, facial droop, speech deficit - Skin Skin exam: Present: dry, intact Internal Med - H&P Results - Labs CBC & Chem 7: 09/06/16 19:32 09/06/16 19:32
[2016-09-07] MEDS ORDERED: *HR* OxyCODONE Immed Rel 5 MG TABLET PO PRN (03:42)
[2016-09-07] MEDS ORDERED: Naloxone 0.4 MG/ML INJ IVP PRN (03:42)
[2016-09-07] MEDS ORDERED: Ondansetron 4 MG/2 ML VIAL IVP PRN (03:42)
[2016-09-07] MEDS ORDERED: Acetaminophen 325 MG TABLET PO PRN (03:42)
[2016-09-07] MEDS: Ipratropium/Albuterol Neb 3 ML IH SCH ×6 (05:19→23:25)
[2016-09-07 05:34] LABS: Basophils % 0.2 %; Eosinophils % 0.2 %; Hematocrit 34.6 % (37.5-50.1); Hemoglobin 12.2 g/dL (12.9-16.9); Immature Granulocytes % 0.9 % (0-4); Lymphocytes # 0.3 K/mcL (0.6-4.6); Lymphocytes % 5.9 %; Mean Corpuscular HGB Conc 35.3 g/dL (31.6-35.5); Mean Corpuscular Hemoglobin 30.7 pg (28.0-33.3); Mean Corpuscular Volume 86.9 fL (83.0-100.0); Mean Platelet Volume 9.1 fL (9.4-12.4); Monocytes # 0.1 K/mcL (0.0-1.3); Neutrophils # 5.3 K/mcL (1.6-8.9); Platelet Count 179 K/mcL (140-400); Red Blood Count 3.98 M/mcL (4.19-5.50); Red Cell Distribution Width 12.5 % (11.5-14.5); Segmented Neutrophils % 91.8 %
[2016-09-07] MEDS: *HR* Enoxaparin 40 MG/0.4 ML SYRINGE SQ SCH (05:53)
[2016-09-07] MEDS ORDERED: *HR* LORazepam 2 MG/ML VIAL IVP PRN (06:00)
[2016-09-07 06:06] LABS: BUN/Creatinine Ratio 15 (6-26); Blood Urea Nitrogen 12 mg/dL (8-26); Calcium 9.1 mg/dL (8.6-10.8); Carbon Dioxide 27 mEq/L (19-29); Chloride 89 mEq/L (98-109); Glucose 209 mg/dL (70-99); Magnesium 1.9 mg/dL (1.6-2.6); Osmolality,Calculated 264 (280-300); Potassium 4.6 mEq/L (3.5-4.5); Sodium 124 mEq/L (136-145); eGFR For African Americans > 60 (> 60); eGFR For Non-African Americans > 60 (> 60)
[2016-09-07] MEDS: Folic Acid 1 MG TABLET PO SCH (07:39)
[2016-09-07] MEDS: Vitamin B Complex/Vit C/Vit E 1 EACH TABLET PO SCH (07:39)
[2016-09-07] MEDS: Thiamine (B-1) 100 MG TABLET PO SCH (07:39)
[2016-09-07] MEDS: Furosemide 20 MG TABLET PO SCH ×2 (07:40→16:55)
[2016-09-07] MEDS: amLODIPine 5 MG TABLET PO SCH (07:40)
[2016-09-07] MEDS ORDERED: predniSONE 20 MG TABLET PO SCH (09:00)
[2016-09-07] MEDS ORDERED: *HR* Acetaminophen w/Cod 300-30 mg 1 TAB TABLET PO PRN (09:37)
[2016-09-07] MEDS ORDERED: Albuterol 2.5 MG/3 ML NEBULIZER IH PRN (09:39)
--- NOTE | 2016-09-07 09:43 | Event Note ---
Date of Encounter: 09/07/16 Time of Encounter: 08:00 Patient seen and examined. On examination, patient sitting upright in bed watching television. Patient alert and oriented 3 and states he did not sleep last night secondary to persistent cough. He states he is not starting to feel better yet. Chest x-ray negative. Elevated d-dimer-CTA negative for PE. Stable AAA 4.4 [id number] outpatient. On examination, patient is tight with poor aeration. He is unable to speak in complete sentences without stopping to catch his breath. He is not on oxygen at home, currently on 2 L here. We will change him to IV Solu-Medrol and add guaifenesin given that his cough is tight, moist, but not productive. Cough medicines of Tessalon Perles and codeine as needed. Continue pulmonary toilet. ITS Impressions Chest X-Ray 09/06/16 19:19 IMPRESSION: No acute findings. D/ / Yisel Mesa MD / Yisel Mesa MD Interpreting Provider: Yisel Mesa MD Chest CTA 09/06/16 20:11 IMPRESSION: No evidence of pulmonary embolism or acute pulmonary abnormality. 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 Vascular surgical consultation is suggested. D/ / 09/06/2016 21:46:33 Tommy Morelos MD / tarik Interpreting Provider: Tommy Morelos MD
[2016-09-07] MEDS: Lisinopril 20 MG TABLET PO SCH (10:48)
[2016-09-07] MEDS: Benzonatate 100 MG CAPSULE PO PRN ×2 (12:22→21:05)
--- NOTE | 2016-09-07 16:14 | Electrocardiograph Report ---
[address] [place], [place] [address] Test Date: 2016-09-06 Pat Name: Doc Flores Department: 104 Room: 3B39 Gender: M [employer] Chief: DAVID : 1940 Requested By: Holland Garcia Order Number: [id number] Reading MD: Kecia Rodriguez Measurements Intervals [place] Rate: 101 P: 61 MO: 165 QRS: 64 QRSD: 90 T: 75 QT: 329 QTc: 387 Interpretive Statements SINUS TACHYCARDIA LOW QRS VOLTAGE IN PRECORDIAL LEADS ANTEROSEPTAL MYOCARDIAL INFARCTION, OF INDETERMINATE AGE Electronically Signed On 09-07-2016 16:12:38 EDT by Kecia Rodriguez
[2016-09-07] MEDS: methylPREDNISolone 125 MG/2 ML VIAL IVP SCH ×2 (16:55→23:32)
[2016-09-08] MEDS: Ipratropium/Albuterol Neb 3 ML IH SCH ×5 (04:04→22:56)
[2016-09-08] MEDS: *HR* Enoxaparin 40 MG/0.4 ML SYRINGE SQ SCH (05:37)
[2016-09-08] MEDS: methylPREDNISolone 125 MG/2 ML VIAL IVP SCH ×3 (08:34→23:59)
[2016-09-08] MEDS: Lisinopril 20 MG TABLET PO SCH (08:35)
[2016-09-08] MEDS: Folic Acid 1 MG TABLET PO SCH (08:35)
[2016-09-08] MEDS: amLODIPine 5 MG TABLET PO SCH (08:35)
[2016-09-08] MEDS: Thiamine (B-1) 100 MG TABLET PO SCH (08:35)
[2016-09-08] MEDS: Vitamin B Complex/Vit C/Vit E 1 EACH TABLET PO SCH (08:35)
[2016-09-08] MEDS: Furosemide 20 MG TABLET PO SCH ×2 (08:35→16:41)
--- NOTE | 2016-09-08 12:29 | Internal Med Progress Note ---
Date of Encounter: 09/08/16 Time of Encounter: 10:00 - Assessment and plan (1) Acute exacerbation of chronic obstructive pulmonary disease (COPD) Current Visit: No Status: Acute Assessment and plan: While the patient's aeration has improved greatly since yesterday, he remains poor to fair with diffuse expiratory wheezing and prolonged expiratory phase noted. Patient's cough is now productive and he is coughing up large amounts of thick, white and green sputum. Unlike yesterday, patient is now able to speak in complete sentences. Continue Tessalon Perles and codeine as needed for cough. Continue scheduled guaifenesin. Continue duo nebs and IV Solu- Medrol. He is slowly improving. He remains tachycardic however, will monitor. He does have a history of diastolic heart failure, repeating echo today. May consider changing albuterol to Xopenex if indicated. Chest x-ray negative. Elevated d-dimer-CTA negative for PE. Stable AAA 4.4 [id number] outpatient. He is not on oxygen at home, currently on 2 L here. Continue pulmonary toilet. Unclear why orders were changed overnight. Will schedule guaifenesin and Tessalon Perles with dextromethorphan and codeine for breakthrough coughing. ITS Impressions Chest X-Ray 09/06/16 19:19 IMPRESSION: No acute findings. D/ / Yisel Mesa MD / Yisel Mesa MD Interpreting Provider: Yisel Mesa MD Chest CTA 09/06/16 20:11 IMPRESSION: No evidence of pulmonary embolism or acute pulmonary abnormality. 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 Vascular surgical consultation is suggested. D/ / 09/06/2016 21:46:33 Tommy Morelos MD / tarik Interpreting Provider: Tommy Morelos MD (2) Diastolic heart failure Current Visit: No Status: Chronic Assessment and plan: Does not appear to be an acute exacerbation however his last echocardiogram was a year ago and it had poor echocardiographic windows. We will repeat echo at this time given his marked shortness of breath and tachycardia Qualifiers: Heart failure chronicity: chronic Qualified Code(s): I50.32 - Chronic diastolic (congestive) heart failure (3) Aortic aneurysm, thoracic Current Visit: No Status: Chronic Assessment and plan: stable on imaging, followup outpatient. Qualifiers: Presence of rupture: without rupture Qualified Code(s): I71.2 - Thoracic aortic aneurysm, without rupture (4) ETOH abuse Current Visit: No Status: Chronic Assessment and plan: No signs of acute withdrawal, maintain CIWA protocol. Has not needed any Ativan. (5) Hyponatremia Current Visit: No Status: Chronic Assessment and plan: Acute on chronic though slightly lower than his baseline at this time. Associated with hypo-osmolality likely secondary to his chronic alcohol abuse. We will continue to trend. (6) DVT prophylaxis Current Visit: No Status: Acute Assessment and plan: Subcutaneous Lovenox (7) Acute hypoxemic respiratory failure Current Visit: No Status: Acute Assessment and plan: Not on oxygen at home, on 2 L per nasal cannula here. We will continue to trend as he tolerates and if needed prior to discharge, will qualify for oxygen. He is not stable for discharge at this time. (8) History of tobacco abuse Current Visit: No Status: Inactive Assessment and plan: Remote history, stopped 20 years ago (9) COPD (chronic obstructive pulmonary disease) Current Visit: No Status: Chronic Qualifiers: COPD type: unspecified COPD Qualified Code(s): J44.9 - Chronic obstructive pulmonary disease, unspecified (10) Hypertension Current Visit: No Status: Chronic Assessment and plan: Borderline hypertensive at times, stable, will continue to address his shortness of breath and coughing Qualifiers: Hypertension type: essential hypertension Qualified Code(s): I10 - Essential (primary) hypertension (11) Prediabetes Current Visit: No Status: Chronic Assessment and plan: We will place on low-dose sliding scale. Glucose elevated around 200. A1c 6.4% . - Subjective Interval history: Patient seen and examined. On examination, patient with forceful, productive cough. Patient stating he is starting to feel little bit better and states she is continuing to cough a lot. He states his shortness of breath has improved slightly but he states he is nowhere back to his baseline. - Constitutional Vitals: Temp Pulse Resp BP Pulse Ox 97.6 F 102 15 146/74 96 09/08/16 11:22 09/08/16 11:22 09/08/16 11:22 09/08/16 11:22 09/08/16 11:22 General appearance: Present: mild distress (moderate), A&O X 3, pleasant, answers questions appropriately - Head Head exam: Present: atraumatic, normocephalic - Eye Eye exam: Present: PERRL, conjuntiva pink, sclera anicteric Pupils: Present: PERRL - Neck Neck exam general surgery: Present: supple, trachea midline. Absent: lymphadenopathy - Respiratory Respiratory exam: Present: accessory muscle use, decreased breath sounds, prolonged expiratory phase, respiratory distress, wheezes, tachypnea. Absent: rales, rhonchi - Cardiovascular Cardiovascular exam: Present: RRR, +S1, +S2, tachycardia. Absent: diastolic murmur, gallop, rubs, systolic murmur - GI/Abdominal GI/Abdominal exam: Present: normal bowel sounds, soft, no peritoneal signs. Absent: distended, tenderness - Extremities Exam Extremities exam: Present: warm, radial pulses palpable and symetrical. Absent : calf tenderness, cyanotic, pedal edema - Neurological Exam Neurological exam: Present: alert, CN II-XII intact, oriented X3, no focal deficits, strengths equal and symetr throughout. Absent: pronater drift, facial droop, speech deficit - Skin Skin exam: Present: dry, intact, pallor, warm Internal Medicine: Result - Labs CBC & Chem 7: 09/07/16 04:54 09/07/16 04:54 - ABG Interpretation ABG results: PT/INR, D-dimer D-Dimer 1089 ng/mLFEU (0-500) H 09/06/16 19:32 Consult Discharge Plan - Plan Referrals: Gary Cosby Jr, MD [Primary Care Provider] -
[2016-09-08] MEDS ORDERED: Dextromethorphan Polistrx(12h) 30 MG/5 ML UDC PO PRN (12:39)
[2016-09-08] MEDS ORDERED: *HR* Acetaminophen w/Cod 300-30 mg 1 TAB TABLET PO PRN (12:44)
[2016-09-08] MEDS: Benzonatate 100 MG CAPSULE PO SCH ×2 (16:41→20:57)
[2016-09-09] MEDS: Ipratropium/Albuterol Neb 3 ML IH SCH ×4 (04:36→16:36)
[2016-09-09 04:49] LABS: BUN/Creatinine Ratio 26 (6-26); Blood Urea Nitrogen 22 mg/dL (8-26); Carbon Dioxide 31 mEq/L (19-29); Chloride 92 mEq/L (98-109); Glucose 235 mg/dL (70-99); Osmolality,Calculated 281 (280-300); Potassium 4.2 mEq/L (3.5-4.5); Sodium 130 mEq/L (136-145); eGFR For African Americans > 60 (> 60); eGFR For Non-African Americans > 60 (> 60)
[2016-09-09] MEDS: *HR* Enoxaparin 40 MG/0.4 ML SYRINGE SQ SCH (05:51)
[2016-09-09] MEDS: Lisinopril 20 MG TABLET PO SCH (07:57)
[2016-09-09] MEDS: Furosemide 20 MG TABLET PO SCH ×2 (07:57→18:32)
[2016-09-09] MEDS: Folic Acid 1 MG TABLET PO SCH (07:57)
[2016-09-09] MEDS: Thiamine (B-1) 100 MG TABLET PO SCH (07:57)
[2016-09-09] MEDS: Vitamin B Complex/Vit C/Vit E 1 EACH TABLET PO SCH (07:57)
[2016-09-09] MEDS: Benzonatate 100 MG CAPSULE PO SCH ×2 (07:57→14:30)
[2016-09-09] MEDS: methylPREDNISolone 125 MG/2 ML VIAL IVP SCH ×2 (07:57→18:32)
[2016-09-09] MEDS: amLODIPine 5 MG TABLET PO SCH (07:57)
[2016-09-09 15:29] VITALS: BP 133/73
--- NOTE | 2016-09-09 16:54 | Discharge Summary ---
Date of Encounter: 09/09/16 Time of Encounter: 11:30 - Discharge Diagnosis (1) Acute exacerbation of chronic obstructive pulmonary disease (COPD) Priority: Primary Status: Resolved Comments: patient denied shortness of breath above his normal on day of discharge (2) Diastolic heart failure Priority: Secondary Status: Chronic Comments: No acute exacerbation however his last echocardiogram was a year ago; repeat with grossly normal LVEF and no pulmonary hypertension. Qualifiers: Heart failure chronicity: chronic Qualified Code(s): I50.32 - Chronic diastolic (congestive) heart failure (3) Aortic aneurysm, thoracic Priority: Secondary Status: Chronic Comments: stable on imaging, followup outpatient. Qualifiers: Presence of rupture: without rupture Qualified Code(s): I71.2 - Thoracic aortic aneurysm, without rupture (4) ETOH abuse Priority: Secondary Status: Chronic Comments: no signs of withdrawal while admitted. (5) Hyponatremia Priority: Secondary Status: Chronic Comments: improved while admitted; likely secondary to daily alcohol consumption (6) DVT prophylaxis Priority: Primary Status: Acute Comments: Subcutaneous Lovenox while admitted (7) Acute hypoxemic respiratory failure Priority: Primary Status: Resolved Comments: Weaned to room air on day of discharge. Attempted to qualify for home oxygenation, he did not qualify (8) History of tobacco abuse Priority: Secondary Status: Inactive Comments: Patient stopped smoking 20 years ago (9) COPD (chronic obstructive pulmonary disease) Priority: Secondary Status: Chronic Qualifiers: COPD type: unspecified COPD Qualified Code(s): J44.9 - Chronic obstructive pulmonary disease, unspecified (10) Hypertension Priority: Secondary Status: Chronic Comments: Initially slightly hypertensive upon admission however normotensive on day of discharge after his coughing was improved Qualifiers: Hypertension type: essential hypertension Qualified Code(s): I10 - Essential (primary) hypertension (11) Prediabetes Priority: Secondary Status: Chronic Comments: A1c 6.4%. Recommend dietary changes and follow-up outpatient - Discharge Medications Prescriptions: GuaiFENesin/Dextromethorphan [Robitussin/Dm] 10 ml PO Q6HR PRN #180 ml PRN Reason: Cough Ipratropium/Albuterol Neb [Duoneb] 3 ml IH Q6HR #150 Albuterol Neb [Proventil Neb] 2.5 mg IH Q2H PRN #100 inh PRN Reason: Shortness Of Breath/Wheezing Budesonide Neb [Pulmicort Neb] 0.5 mg IH BIDR #100 ampul.neb Montelukast [Singulair] 10 mg PO HS #30 tablet predniSONE [PredniSONE] 10 mg PO DAILY #80 tablet Home Medications: Amlodipine Besylate 10 mg PO DAILY 09/15/15 [History] Furosemide [Lasix] 20 mg PO BID 30 Days 09/20/15 [Rx] Albuterol Neb [Proventil Neb] 2.5 mg IH Q2H PRN inh 08/23/16 [Rx] Benazepril HCl [Lotensin] 20 mg PO DAILY 09/07/16 [History] Albuterol Neb [Proventil Neb] 2.5 mg IH Q2H PRN #100 inh 09/09/16 [Rx] Budesonide Neb [Pulmicort Neb] 0.5 mg IH BIDR #100 ampul.neb 09/09/16 [Rx] GuaiFENesin/Dextromethorphan [Robitussin/Dm] 10 ml PO Q6HR PRN #180 ml 09/09/16 [Rx] Ipratropium/Albuterol Neb [Duoneb] 3 ml IH Q6HR #150 09/09/16 [Rx] Montelukast [Singulair] 10 mg PO HS #30 tablet 09/09/16 [Rx] predniSONE [PredniSONE] 10 mg PO DAILY #80 tablet 09/09/16 [Rx] Allergies/Adverse Reactions: Allergies No Known Allergies Allergy (Verified 08/21/16 11:00) Date of admission: 09/08/16 16:00 Primary care physician: Gary Cosby Jr, MD Discharging clinician: Natty Kam Anticipated date of discharge: 09/09/16 - Patient Status Disposition: Home, Self-Care Condition: Fair Functional capacity at discharge: independent ambulation Overall status at discharge: patient is progressing back to baseline - Discharge Instructions Follow Up With: Gary Cosby Jr, MD [Primary Care Provider] - Mata Hanley MD [Partnered Physician] - Additional Instructions: Follow-up with primary care provider within one to 2 weeks, follow-up with pulmonology as needed - Diet and Activity Activity: increase activity as tolerated Diet: diabetic diet, low salt diet Hospital course: Mr. Flores is a 75 year old male with past medical history of COPD, diastolic heart failure, hypertension. Patient presented to the emergency department chief complaint of shortness of breath 3 days prior to presentation. Patient sitting on the day of presentation, his dyspnea had become severe with minimal exertion and was associated with a dry cough. He denied chest pain. Symptoms did not improve in spite of using inhaled bronchodilators up to 8 times per day which prompted his presentation to the emergency department. Workup in the emergency department unremarkable other than hypoxia and need for supplemental oxygenation. Chest x-ray negative. Chest CTA negative for acute processes. Stable aortic [id number] outpatient. Patient was admitted to the hospitalist service for further evaluation and management. Patient was treated for COPD exacerbation and on day of discharge, patient denied shortness of breath above his norm and he was weaned to room air. We attempted to qualify him for home oxygen but he did not qualify. In review of his chart, he recently had outpatient PFTs and unfortunately, does not appear as if the patient has prescription coverage at this time. Regarding his COPD controller medications, he was supposed to be on Breo which would cost him $400 and Daliresp which was going to cost him $300. He cannot afford this and he knows that he needs to seek financial aide assistance, but in the meantime, he needs to be treated. Will refill his duo nebs for every 6 hours, albuterol nebs every 2 hours as needed, will add Singulair and Budesonide. Obviously, if the patient is able to obtain assistance, he can switch back to the preferred medications. Also sending home on steroid taper and cough medicine. An echocardiogram was performed during this visit which was unremarkable. No acute exacerbation of his heart failure noted. He also did not exhibit any signs of alcohol withdrawal during this admission. Also noted to be prediabetic with A1c of 6.4%, recommend lifestyle changes and follow-up outpatient. He was discharged home in stable condition with close outpatient follow-up recommended. ITS Impressions Chest X-Ray 09/06/16 19:19 IMPRESSION: No acute findings. D/ / Yisel Mesa MD / Yisel Mesa MD Interpreting Provider: Yisel Mesa MD Chest CTA 09/06/16 20:11 IMPRESSION: No evidence of pulmonary embolism or acute pulmonary abnormality. 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 Vascular surgical consultation is suggested. D/ / 09/06/2016 21:46:33 Tommy Morelos MD / tarik Interpreting Provider: Tommy Morelos MD Echocardiogram impressions: LVEF grossly normal but unable to obtain to chamber or short axis view of ventricle. No evidence of pulmonary hypertension. No significant valvular dysfunction. - Time Spent with Patient Total time spent providing and/or coordinating discharge services: - Constitutional Vitals: Temp Pulse Resp BP Pulse Ox 98.0 F 101 16 133/73 94 09/09/16 15:29 09/09/16 15:29 09/09/16 15:29 09/09/16 15:29 09/09/16 15:29 General appearance: Present: mild distress (improved), A&O X 3, pleasant, answers questions appropriately - Head Head exam: Present: atraumatic, normocephalic - Eye Eye exam: Present: PERRL, conjuntiva pink, sclera anicteric Pupils: Present: PERRL - Neck Neck exam general surgery: Present: supple, trachea midline. Absent: lymphadenopathy - Respiratory Respiratory exam: Present: accessory muscle use, decreased breath sounds, prolonged expiratory phase, respiratory distress (mild; baseline), wheezes. Absent: rales, rhonchi - Cardiovascular Cardiovascular exam: Present: RRR, +S1, +S2, tachycardia. Absent: diastolic murmur, gallop, rubs, systolic murmur - GI/Abdominal GI/Abdominal exam: Present: normal bowel sounds, soft, no peritoneal signs. Absent: distended, tenderness - Extremities Exam Extremities exam: Present: warm, radial pulses palpable and symetrical. Absent : calf tenderness, cyanotic, pedal edema - Neurological Exam Neurological exam: Present: alert, CN II-XII intact, normal gait, oriented X3, no focal deficits, strengths equal and symetr throughout. Absent: pronater drift, facial droop, speech deficit - Skin Skin exam: Present: dry, intact, pallor, warm
== END 2016-09-09 18:50 | disposition home or self-care (01) | DRG 190 ==
LOC: 3BNU 18:40 → EMEROO 18:40 → 3BNU 09-07 00:45
PROVIDERS: ADMIT Internal Medicine; ATTEND Nurse Practitioner Family

== ENCOUNTER 2016-10-31 04:30 | Inpatient (IN) ==
[2016-10-31] MEDS ORDERED: methylPREDNISolone 125 MG/2 ML VIAL ONE (06:08)
[2016-10-31] MEDS ORDERED: Levofloxacin 750 MG/150 ML 750 MG/150 ML BAG IVPB ONE (06:09)
[2016-10-31 06:38] LABS: BUN/Creatinine Ratio 12 (6-26); Blood Urea Nitrogen 11 mg/dL (8-26); Calcium 9.1 mg/dL (8.6-10.8); Carbon Dioxide 20 mEq/L (19-29); Chloride 91 mEq/L (98-109); Glucose 159 mg/dL (70-99); Osmolality,Calculated 269 (280-300); Potassium 4.4 mEq/L (3.5-4.5); Sodium 128 mEq/L (136-145); eGFR For African Americans > 60 (> 60); eGFR For Non-African Americans > 60 (> 60)
[2016-10-31 06:39] LABS: Basophils # 0.1 K/mcL (0.0-0.2); Basophils % 0.5 %; Eosinophils # 0.2 K/mcL (0.0-0.6); Eosinophils % 0.8 %; Hematocrit 41.2 % (37.5-50.1); Hemoglobin 14.6 g/dL (12.9-16.9); Immature Granulocytes % 0.5 % (0-4); Lymphocytes # 2.2 K/mcL (0.6-4.6); Lymphocytes % 10.1 %; Mean Corpuscular HGB Conc 35.4 g/dL (31.6-35.5); Mean Corpuscular Hemoglobin 31.7 pg (28.0-33.3); Mean Corpuscular Volume 89.4 fL (83.0-100.0); Mean Platelet Volume 9.1 fL (9.4-12.4); Monocytes # 1.6 K/mcL (0.0-1.3); Platelet Count 236 K/mcL (140-400); Red Blood Count 4.61 M/mcL (4.19-5.50); Red Cell Distribution Width 13.8 % (11.5-14.5); Segmented Neutrophils % 81.1 %
[2016-10-31] MEDS ORDERED: Naloxone 0.4 MG/ML INJ IVP PRN (08:13)
[2016-10-31] MEDS ORDERED: *HR* HYDROcodone/Acet 5/325 mg TABLET PO PRN (08:13)
[2016-10-31] MEDS ORDERED: Ondansetron 4 MG/2 ML VIAL IVP PRN (08:13)
[2016-10-31] MEDS ORDERED: *HR* Morphine 2 MG/ML SYRINGE IVP PRN (08:13)
[2016-10-31] MEDS ORDERED: Acetaminophen 325 MG TABLET PO PRN (08:13)
--- NOTE | 2016-10-31 08:23 | Internal Med History&Physical ---
Date of Encounter: 10/31/16 Time of Encounter: 08:00 Assessment and Plan (1) Sepsis Current visit: Yes Status: Acute Pt does meet sepsis criteria with elevated WBC. Sinus tachycardia, Source of inf as Pneumonia Will admit the pt into Tele Will cont abx Levofloxacin given in ER Started him on gentle IV hydration Will sent for sputum cx Qualifiers: Qualified Code(s): A41.9 - Sepsis, unspecified organism (2) Acute hypoxemic respiratory failure Current visit: No Status: Resolved Started him on high dose IV steroids and frequent Duoneb Cont O2.. to keep Spo 2 @ 92% (3) Acute exacerbation of chronic obstructive airways disease Current visit: No Status: Acute See above (4) Pneumonia Current visit: Yes Status: Acute Reviewed CXR showing patchy infiltrates in both lower lobes Mostly bacterial infection cont abx Levofloxacin IV hydration Duoneb and O2 Qualifiers: Qualified Code(s): J18.9 - Pneumonia, unspecified organism (5) Alcohol dependence Current visit: Yes Status: Acute counseled to quit drinking On IV fluids CIWA protocol Thiamine and Folic acid PO SW consulted Qualifiers: Qualified Code(s): F10.20 - Alcohol dependence, uncomplicated (6) Diastolic heart failure Current visit: No Status: Chronic stable reviewed 2 D Echo from 08/27 showed roxann LVEF Resumed home meds except Lasix Qualifiers: Heart failure chronicity: chronic Qualified Code(s): I50.32 - Chronic diastolic (congestive) heart failure (7) Essential hypertension Current visit: No Status: Chronic Resume all home meds (8) Hyponatremia Current visit: No Status: Chronic He does have chronic hyponatremia (9) DVT prophylaxis Current visit: No Status: Acute on Lovenox Internal Medicine - H&P: HPI Chief complaint: Shortness of breath Admitted From: Emergency Dept Plans for Post Hospital Care: Home History of present illness: Mr. Flores is a 76 year old male with known PMH of COPD not on home O2 dependent , Chronic alcohol dependent, chronic diastolic CHF pt who was admitted here in August 2016 for COPD exacerbation, now he came back to ER this morning c/o progressively worsening SOB and severe SPENCE since y/d afternoon. He denied any CP , denied any cough. No nausea / vomiting. No sick contacts. No recent travel history. Past Med Surg Social Fam HX - Past Medical History Medical history: CHF, COPD, hypertension Psychiatric history: no psych history - Past Surgical History Surgical History: hip replacement - Social History Smoking Status: Former smoker Smokeless Tobacco Status: No Alcohol use: heavy, recent Drug use: none - Family History Mother Living Status: Hx Family Endocrine Disorder: Yes (DM) Father Living Status: Hx Family Cardiac Disorders: Yes (MO) Hx Family Respiratory Disorders: Yes (COPD) Hx Family Cancer: No Hx Family GI Disorders: Yes (Hernia and gallbladder surgery) Hx Family Endocrine Disorder: No Hx Family Neuromuscular Disorders: No Hx Family Neurologic Disorders: No Hx Family HEENT Disorders: No Hx Family Autoimmune Disorders: No Internal Medicine - H&P: Meds Amlodipine Besylate 10 mg PO DAILY 09/15/15 [History] Furosemide [Lasix] 20 mg PO BID 30 Days tablet 09/20/15 [Rx] Albuterol Neb [Proventil Neb] 2.5 mg IH Q2H PRN inh 08/23/16 [Rx] Benazepril HCl [Lotensin] 20 mg PO DAILY 09/07/16 [History] Budesonide Neb [Pulmicort Neb] 0.5 mg IH BIDR #100 ampul.neb 09/09/16 [Rx] Ipratropium/Albuterol Neb [Duoneb] 3 ml IH Q6HR #150 09/09/16 [Rx] 3 Allergy/AdvReac Type Severity Reaction Status Date / Time No Known Allergies Allergy Verified 08/21/16 11:00 All Systems PM: A 10-system review of systems was performed and is negative for pertinent findings except as documented above in the HPI. Review of systems: All the systems are reviewed everything is benign except the systems and symptoms I mentioned in the history of present illness - Constitutional Vitals: Pulse Resp BP Pulse Ox 124 14 119/60 94 10/31/16 06:44 10/31/16 08:15 10/31/16 08:15 10/31/16 06:48 General appearance: Present: mild distress, A&O X 3, answers questions appropriately - Head Head exam: Present: atraumatic, normal inspection - Respiratory Respiratory exam: Present: decreased breath sounds, respiratory distress (mild) , wheezes (moderate to severe). Absent: rales, rhonchi - Cardiovascular Cardiovascular exam: Present: +S1, +S2, tachycardia. Absent: systolic murmur - GI/Abdominal GI/Abdominal exam: Present: normal bowel sounds, soft. Absent: rebound, rigid, tenderness - Extremities Exam Extremities exam: Absent: calf tenderness, pedal edema, tenderness - Back Exam Back exam: Absent: CVA tenderness (L), CVA tenderness (R) - Neurological Exam Neurological exam: Present: alert, oriented X3 - Psychiatric Psychiatric exam: Present: normal affect, normal mood Internal Med - H&P Results - Labs CBC & Chem 7: 10/31/16 05:00 10/31/16 05:00
[2016-10-31] MEDS ORDERED: *HR* LORazepam 2 MG/ML VIAL IVP PRN ×2 (08:32)
[2016-10-31] MEDS: 0.9 % Sodium Chloride 1,000 ML IVC SCH ×2 (10:40→19:56)
[2016-10-31] MEDS: Famotidine 20 MG TABLET PO SCH ×2 (10:40→19:56)
[2016-10-31] MEDS: Ipratropium/Albuterol Neb 3 ML IH SCH ×3 (11:27→20:36)
[2016-10-31] MEDS: Folic Acid 1 MG TABLET PO SCH (11:59)
[2016-10-31] MEDS: Thiamine (B-1) 100 MG TABLET PO SCH (11:59)
[2016-10-31] MEDS: MethylPREDNISolone 40 MG/ML VIAL IVP SCH ×2 (11:59→16:56)
[2016-11-01] MEDS: MethylPREDNISolone 40 MG/ML VIAL IVP SCH ×2 (00:11→05:22)
[2016-11-01] MEDS: 0.9 % Sodium Chloride 1,000 ML IVC SCH ×2 (00:12→09:00)
[2016-11-01] MEDS: Ipratropium/Albuterol Neb 3 ML IH SCH ×7 (00:35→23:52)
[2016-11-01 04:35] LABS: Basophils % 0.1 %; Hematocrit 38.4 % (37.5-50.1); Hemoglobin 12.8 g/dL (12.9-16.9); Lymphocytes # 0.8 K/mcL (0.6-4.6); Lymphocytes % 6.9 %; Mean Corpuscular HGB Conc 33.3 g/dL (31.6-35.5); Mean Corpuscular Hemoglobin 30.4 pg (28.0-33.3); Mean Corpuscular Volume 91.2 fL (83.0-100.0); Mean Platelet Volume 9.1 fL (9.4-12.4); Monocytes # 0.2 K/mcL (0.0-1.3); Monocytes % 1.8 %; Neutrophils # 11.1 K/mcL (1.6-8.9); Platelet Count 176 K/mcL (140-400); Red Blood Count 4.21 M/mcL (4.19-5.50); Red Cell Distribution Width 13.7 % (11.5-14.5); Segmented Neutrophils % 90.2 %
[2016-11-01 04:51] LABS: BUN/Creatinine Ratio 15 (6-26); Blood Urea Nitrogen 12 mg/dL (8-26); Carbon Dioxide 24 mEq/L (19-29); Chloride 99 mEq/L (98-109); Glucose 194 mg/dL (70-99); Osmolality,Calculated 275 (280-300); Potassium 4.1 mEq/L (3.5-4.5); Sodium 130 mEq/L (136-145); eGFR For African Americans > 60 (> 60); eGFR For Non-African Americans > 60 (> 60)
[2016-11-01] MEDS: *HR* Enoxaparin 40 MG/0.4 ML SYRINGE SQ SCH (05:22)
[2016-11-01] MEDS ORDERED: *HR* LORazepam 2 MG/ML VIAL IVP PRN (08:00)
[2016-11-01] MEDS ORDERED: Albuterol 2.5 MG/3 ML NEBULIZER IH PRN (08:01)
--- NOTE | 2016-11-01 08:09 | Electrocardiograph Report ---
[address] [place], [place] [address] Test Date: 2016-10-31 Pat Name: Doc Flores Department: [id number] Room: 2A16 Gender: M [employer] Supervisor: : 1940 Requested By: Mariah De Leon Order Number: [id number] Reading MD: Min Powell MD Measurements Intervals [place] Rate: 131 P: 74 NM: 172 QRS: 50 QRSD: 82 T: 77 QT: 282 QTc: 359 Interpretive Statements SINUS TACHYCARDIA WITH FREQUENT ECTOPIC PREMATURE COMPLEXES LOW QRS VOLTAGE IN PRECORDIAL LEADS ANTEROSEPTAL MYOCARDIAL INFARCTION, OF INDETERMINATE AGE BASELINE ARTIFACT Electronically Signed On 11-01-2016 6:35:47 EDT by Min Powell MD
--- NOTE | 2016-11-01 08:32 | Internal Med Progress Note ---
<Richard Franco - Last Filed: 11/01/16 11:35> Date of Encounter: 11/01/16 Time of Encounter: 08:32 - Assessment and plan (1) Acute hypoxemic respiratory failure Current Visit: Yes Status: Resolved Assessment and plan: - Currently tolerating 4 L of oxygen via nasal cannula - No complaints of shortness of breath at this time, he is speaking in full sentences - Likely secondary to underlying pneumonia versus COPD, congestive heart failure - We will treat underlying conditions as below (2) Sepsis Current Visit: Yes Status: Acute Assessment and plan: - SIRS criteria on admission with tachycardia, WBC of 22 - Currently does not meet SIRS, heart rate 80 respiratory rate 18, afebrile, WBC of 12.2 - Likely source of right middle lobe pneumonia as seen on chest x-ray emergency department - Patient is receiving Levaquin. No complaints at this time aside from shortness of breath and cough. We will discontinue fluids at this time - We will continue treatment as below. Qualifiers: Sepsis type: sepsis due to unspecified organism Qualified Code(s): A41.9 - Sepsis, unspecified organism (3) Shortness of breath Current Visit: No Status: Acute Assessment and plan: - Improved since admission, currently tolerating 2 L of oxygen at 98% - Does not qualify for home oxygen - We will decrease steroids to prednisone 40 mg daily as this is less likely a COPD exacerbation - We will attempt to wean as his condition improves (4) Pneumonia Current Visit: Yes Status: Acute Assessment and plan: - Complaining of shortness of breath, thick yellow productive cough -Chest x-ray in emergency department showed bibasilar atelectasis or pneumonia - Septic on presentation with tachycardia and elevated WBC - Vital signs stable this morning, WBC of 12.2. - Continue Levaquin 750 started in emergency department Qualifiers: Pneumonia type: due to unspecified organism Laterality: unspecified laterality Lung location: lower lobe of lung Qualified Code(s): J18.1 - Lobar pneumonia, unspecified organism (5) ETOH abuse Current Visit: No Status: Chronic Assessment and plan: - Reported history of chronic alcohol abuse - Patient is not complaining of any symptoms at this time. - NELLIEWA protocol, Ativan on board. Patient has received banana bag - We will continue to monitor and keep protocol (6) Hyponatremia Current Visit: No Status: Chronic Assessment and plan: - Sodium of 128 on admission, improved to 130 - Possible secondary to decreased oral intake, medication use, SIADH - We will continue fluids at this time, however we will be cautious in the setting of congestive heart failure (7) COPD (chronic obstructive pulmonary disease) Current Visit: No Status: Chronic Assessment and plan: - Patient is a current smoker with history of COPD not oxygen dependent - Currently tolerating 4 L of oxygen - Continue DuoNeb's for time being - Likely not an acute exacerbation of COPD, more likely in ammonia at this time given elevated WBC and findings on chest x-ray - We will taper down steroids to prednisone 40 mg daily Qualifiers: COPD type: unspecified COPD Qualified Code(s): J44.9 - Chronic obstructive pulmonary disease, unspecified (8) Hypertension Current Visit: Yes Status: Chronic Assessment and plan: Blood pressure this morning of 134/77 - Controlled, continue home medications Qualifiers: Hypertension type: essential hypertension Qualified Code(s): I10 - Essential (primary) hypertension (9) DVT prophylaxis Current Visit: No Status: Acute Assessment and plan: Lovenox - Time Spent With Patient 25 - 35 minutes - Subjective Interval history: Patient was seen and examined at bedside this morning. He states his shortness of breath is much improved since admission. He does still admit to a cough with thick yellow sputum production, but states this is normal for him. He does admit to being hospitalized in the past for COPD exacerbation, most recently in August of this year. He denies any symptoms of fevers, chills, chest pain, abdominal pain, lower extremity swelling. He is currently tolerating 4 L of oxygen via nasal cannula, he does not require oxygen at home. - Constitutional Vitals: Temp Pulse Resp BP Pulse Ox 97.3 F L 80 20 134/77 98 11/01/16 07:00 11/01/16 07:00 11/01/16 08:26 11/01/16 07:00 11/01/16 08:26 General appearance: Present: mild distress, A&O X 3, answers questions appropriately Exam: Gen.: Vitals noted. No acute distress. AAOx3 HEENT: PERRL/EOMI, oropharynx clear, Normocephalic, atraumatic Neck: Supple. No adenopathy. Cardiac: RRR, no murmur, +S1/S2 Pulmonary: Mild rales in right middle lobe with diffuse mild wheeze otherwise CTA bilaterally, no wheezes, rales or rhonchi, equal chest expansion Abdomen: soft, nontender, BS noted, no guarding Back: Nontender throughout. MSK: ROM intact, no joint swelling noted Extremities: Venous stasis, right lower. no BLE edema, nontender calf, no cyanosis or clubbing Neuro: A&Ox3, moves all extremities, no focal deficits Psych: Appropriate mood and behavior Internal Medicine: Result - Labs CBC & Chem 7: 11/01/16 03:46 11/01/16 03:46 Labs: Short CBC 11/01/16 Range/Units 03:46 WBC 12.2 H (4.3-11.1) K/mcL Hgb 12.8 L D (12.9-16.9) g/dL Hct 38.4 (37.5-50.1) % Plt Count 176 (140-400) K/mcL Neutrophils # 11.1 H (1.6-8.9) K/mcL BMP 11/01/16 03:46 Sodium 130 L Potassium 4.1 Chloride 99 Carbon Dioxide 24 BUN 12 Creatinine 0.79 Glucose 194 H Calcium 9.0 Consult Discharge Plan - Plan Referrals: Gary Cosby Jr, MD [Primary Care Provider] - 11/09/16 9:15 am () <Ty Mcdonald P - Last Filed: 11/01/16 17:45> Date of Encounter: 11/01/16 - Constitutional Vitals: Temp Pulse Resp BP Pulse Ox 98.0 F 105 18 129/66 93 11/01/16 15:58 11/01/16 15:58 11/01/16 15:58 11/01/16 15:58 11/01/16 15:58 Internal Medicine: Result - Labs CBC & Chem 7: 11/01/16 03:46 11/01/16 03:46 Labs: Short CBC 11/01/16 Range/Units 03:46 WBC 12.2 H (4.3-11.1) K/mcL Hgb 12.8 L D (12.9-16.9) g/dL Hct 38.4 (37.5-50.1) % Plt Count 176 (140-400) K/mcL Neutrophils # 11.1 H (1.6-8.9) K/mcL [facility] 11/01/16 03:46 Sodium 130 L Potassium 4.1 Chloride 99 Carbon Dioxide 24 BUN 12 Creatinine 0.79 Glucose 194 H Calcium 9.0 - Attending Attestation I examined this patient and my medical decision-making was reviewed with the Resident Physician. I agree with the documented findings, disposition and treatment plan as described except to the extent set forth below. likely home tomorrow if stable
[2016-11-01] MEDS: Folic Acid 1 MG TABLET PO SCH (10:15)
[2016-11-01] MEDS: Thiamine (B-1) 100 MG TABLET PO SCH (10:15)
[2016-11-01] MEDS: Famotidine 20 MG TABLET PO SCH (10:15)
[2016-11-01] MEDS: Levofloxacin 750 MG/150 ML 750 MG/150 ML BAG IVPB SCH (10:16)
[2016-11-01] MEDS: predniSONE 20 MG TABLET PO SCH (12:31)
[2016-11-02] MEDS: Ipratropium/Albuterol Neb 3 ML IH SCH ×2 (04:45→07:51)
[2016-11-02] MEDS: *HR* Enoxaparin 40 MG/0.4 ML SYRINGE SQ SCH (05:10)
[2016-11-02 05:22] LABS: Basophils % 0.1 %; Hematocrit 36.8 % (37.5-50.1); Hemoglobin 12.3 g/dL (12.9-16.9); Immature Granulocytes % 1.8 % (0-4); Lymphocytes # 0.8 K/mcL (0.6-4.6); Lymphocytes % 5.5 %; Mean Corpuscular HGB Conc 33.4 g/dL (31.6-35.5); Mean Corpuscular Hemoglobin 30.9 pg (28.0-33.3); Mean Corpuscular Volume 92.5 fL (83.0-100.0); Mean Platelet Volume 9.1 fL (9.4-12.4); Monocytes # 0.8 K/mcL (0.0-1.3); Monocytes % 5.4 %; Neutrophils # 12.8 K/mcL (1.6-8.9); Platelet Count 176 K/mcL (140-400); Red Blood Count 3.98 M/mcL (4.19-5.50); Red Cell Distribution Width 13.9 % (11.5-14.5); Segmented Neutrophils % 87.2 %
[2016-11-02 05:45] LABS: BUN/Creatinine Ratio 23 (6-26); Blood Urea Nitrogen 18 mg/dL (8-26); Calcium 8.8 mg/dL (8.6-10.8); Carbon Dioxide 25 mEq/L (19-29); Chloride 100 mEq/L (98-109); Glucose 208 mg/dL (70-99); Osmolality,Calculated 286 (280-300); Potassium 4.1 mEq/L (3.5-4.5); Sodium 134 mEq/L (136-145); eGFR For African Americans > 60 (> 60); eGFR For Non-African Americans > 60 (> 60)
[2016-11-02 07:06] VITALS: BP 157/75
[2016-11-02] MEDS: Levofloxacin 750 MG/150 ML 750 MG/150 ML BAG IVPB SCH (08:10)
[2016-11-02] MEDS: Folic Acid 1 MG TABLET PO SCH (08:10)
[2016-11-02] MEDS: predniSONE 20 MG TABLET PO SCH (08:10)
[2016-11-02] MEDS: Thiamine (B-1) 100 MG TABLET PO SCH (08:10)
--- NOTE | 2016-11-02 09:25 | Discharge Summary ---
<ElvinRichard marquez - Last Filed: 11/02/16 10:05> Date of Encounter: 11/02/16 Time of Encounter: 09:24 - Discharge Diagnosis (1) Acute hypoxemic respiratory failure Priority: Primary Status: Resolved (2) Sepsis Priority: Secondary Status: Resolved Qualifiers: Sepsis type: sepsis due to unspecified organism Qualified Code(s): A41.9 - Sepsis, unspecified organism (3) Shortness of breath Priority: Secondary Status: Resolved (4) Pneumonia Priority: Secondary Status: Acute Qualifiers: Pneumonia type: due to unspecified organism Laterality: bilateral Lung location: lower lobe of lung Qualified Code(s): J18.9 - Pneumonia, unspecified organism (5) ETOH abuse Priority: Secondary Status: Chronic (6) Hyponatremia Priority: Secondary Status: Resolved (7) COPD (chronic obstructive pulmonary disease) Priority: Secondary Status: Chronic Qualifiers: COPD type: unspecified COPD Qualified Code(s): J44.9 - Chronic obstructive pulmonary disease, unspecified (8) Hypertension Priority: Secondary Status: Chronic Qualifiers: Hypertension type: essential hypertension Qualified Code(s): I10 - Essential (primary) hypertension (9) DVT prophylaxis Priority: Secondary Status: Acute - Discharge Medications Prescriptions: Levofloxacin [Levaquin] 750 mg PO DAILY #3 tablet Home Medications: Amlodipine Besylate 10 mg PO DAILY 09/15/15 [History] Furosemide [Lasix] 20 mg PO BID 30 Days tablet 09/20/15 [Rx] Albuterol Neb [Proventil Neb] 2.5 mg IH Q2H PRN inh 08/23/16 [Rx] Benazepril HCl [Lotensin] 20 mg PO DAILY 09/07/16 [History] Budesonide Neb [Pulmicort Neb] 0.5 mg IH BIDR #100 ampul.neb 09/09/16 [Rx] Ipratropium/Albuterol Neb [Duoneb] 3 ml IH Q6HR #150 09/09/16 [Rx] Levofloxacin [Levaquin] 750 mg PO DAILY #3 tablet 11/02/16 [Rx] Allergies/Adverse Reactions: 3 Allergy/AdvReac Type Severity Reaction Status Date / Time No Known Allergies Allergy Verified 08/21/16 11:00 Procedures/tests Complete & Pending: Procedures Performed prior 72 hours Category Date Time Status ECG 12 lead ECG [ECG] Routine Y 10/31/16 06:11 Completed Date of admission: 10/31/16 10:50 Primary care physician: Gary Cosby Jr, MD Discharging clinician: Richard Franco Anticipated date of discharge: 11/02/16 - Patient Status Disposition: Home, Self-Care Condition: Fair Functional capacity at discharge: independent ambulation Overall status at discharge: patient is progressing back to baseline - Discharge Instructions Follow Up With: Gary Cosby Jr, MD [Primary Care Provider] - 11/09/16 9:15 am () Additional Instructions: Please follow up with your PCP and complete your course of antibiotics. - Diet and Activity Activity: increase activity as tolerated, resume usual activities as tolerated Diet: advance to your usual diet Hospital course: Mr. Flores is a 76 year old male who presented to ED with a complaint of restless worsening shortness of breath 2 days. He denies recent chest pain, cough, nausea, vomiting, sick contacts, recent travel history. He does have a past medical history of COPD with recent exacerbation in August of this year. Vital signs in emergency department showed a pulse of 124, respiratory rate 26, saturating oxygen at 94% on 4 L supplemental oxygen. Lab results were significant for white count 22.1, sodium 128, chloride 91, troponin was 0.03, BNP of 46. Remainder of Labs within normal limits. Chest x-ray in emergency department showed bibasilar opacities suggestive of atelectasis or possible pneumonia. Patient was admitted to medicine service for further evaluation and workup of sepsis secondary to pneumonia. During course of hospital stay, patient gradually improved. He does not complain of any shortness of breath on day of discharge. His white count was 14.7, however he did receive steroids during admission. He was started on Levaquin and will be discharged home with a prescription to complete a total of 5 days of treatment. He is currently saturating oxygen at 96% on room air. He has no complaints at this time and has been afebrile during course of hospital stay. He will be discharged home in stable medical condition and his shorts to follow up with his primary care physician for further management of his chronic conditions and he was instructed to return to emergency department if his symptoms should worsen. He was also instructed to complete his course of antibiotics to completion. - Time Spent with Patient Total time spent providing and/or coordinating discharge services: 40 minutes - Constitutional Vitals: Temp Pulse Resp BP Pulse Ox 97.8 F 90 17 157/75 98 11/02/16 08:58 11/02/16 08:58 11/02/16 08:58 11/02/16 06:58 11/02/16 08:58 General appearance: Present: mild distress, A&O X 3, answers questions appropriately Exam: Gen.: Vitals noted. No acute distress. AAOx3. Thin appearing HEENT: PERRL/EOMI, oropharynx clear, Normocephalic, atraumatic Neck: Supple. No adenopathy. Cardiac: RRR, no murmur, +S1/S2 Pulmonary: CTA bilaterally, no wheezes, rales or rhonchi, equal chest expansion Abdomen: soft, nontender, BS noted, no guarding Back: Nontender throughout. MSK: ROM intact, no joint swelling noted Extremities: no BLE edema, nontender calf, no cyanosis or clubbing Neuro: A&Ox3, moves all extremities, no focal deficits Psych: Appropriate mood and behavior <Ty Mcdonald P - Last Filed: 11/02/16 17:20> Date of Encounter: 11/02/16 Procedures/tests Complete & Pending: Procedures Performed prior 72 hours Category Date Time Status ECG 12 lead ECG [ECG] Routine Y 10/31/16 06:11 Completed Date of admission: 10/31/16 10:50 Primary care physician: Gary Cosby Jr, MD Hospital course: Mr. Flores is a 76 year old male - Time Spent with Patient Total time spent providing and/or coordinating discharge services: - Constitutional Vitals: Temp Pulse Resp BP Pulse Ox 97.8 F 90 17 157/75 98 11/02/16 08:58 11/02/16 08:58 11/02/16 08:58 11/02/16 06:58 11/02/16 08:58 - Attending Attestation I examined this patient and my medical decision-making was reviewed with the Resident Physician. I agree with the documented findings, disposition and treatment plan as described except to the extent set forth below.
== END 2016-11-02 10:08 | disposition home or self-care (01) | DRG 871 ==
LOC: EMEROO 05:06 → 3BNU 05:06 → 2ANU 08:10
PROVIDERS: ADMIT Family Medicine; ATTEND Registered Nurse

== ENCOUNTER 2019-01-14 21:30 | Inpatient (IN) ==
[2019-01-14] MEDS ORDERED: Furosemide 40 MG/4 ML VIAL IVP ONE (21:39)
[2019-01-14] MEDS ORDERED: Nitroglycerin 0.4 MG TAB.SUBL SL PRN (21:40)
[2019-01-14] MEDS ORDERED: Aspirin 325 MG TABLET PO ONE (21:40)
[2019-01-14 21:57] LABS: Basophils % 0.2 %; Lymphocytes % 10.6 %; Mean Platelet Volume 9.2 fL (9.4-12.4); Red Cell Distribution Width 12.7 % (11.5-14.5)
[2019-01-14 22:01] LABS: Eosinophils # 0.2 K/mcL (0.0-0.6); Eosinophils % 2.1 %; Hematocrit 42.4 % (37.5-50.1); Immature Granulocytes % 0.4 % (0-4); Lymphocytes # 1.2 K/mcL (0.6-4.6); Mean Corpuscular Hemoglobin 31.4 pg (28.0-33.3); Mean Corpuscular Volume 95.1 fL (83.0-100.0); Monocytes # 0.5 K/mcL (0.0-1.3); Monocytes % 4.7 %; Platelet Count 196 K/mcL (140-400); Red Blood Count 4.46 M/mcL (4.19-5.50); White Blood Count 11.4 K/mcL (4.3-11.1)
[2019-01-14 22:03] LABS: Neutrophils # 9.4 K/mcL (1.6-8.9)
[2019-01-14 22:16] LABS: Platelet Estimate Normal (Normal); Reactive Lymphocytes Present (Not Present)
[2019-01-14 22:22] LABS: Alanine Aminotransferase 22 Units/L (7-52); Albumin 4.3 g/dL (3.5-5.7); Albumin/Globulin Ratio 1.4 (1.1-2.2); Alkaline Phosphatase 47 Units/L (34-104); Aspartate Amino Transferase 18 Units/L (13-39); BUN/Creatinine Ratio 22 (6-26); Bilirubin,Total 1.5 mg/dL (0.3-1.0); Blood Urea Nitrogen 17 mg/dL (8-23); Calcium 8.9 mg/dL (8.6-10.3); Carbon Dioxide 28 mEq/L (23-29); Chloride 89 mEq/L (98-107); Glucose 179 mg/dL (70-105); Osmolality,Calculated 270 (280-300); Potassium 4.9 mEq/L (3.5-5.1); Sodium 127 mEq/L (136-145); Total Protein 7.3 g/dL (6.4-8.9); eGFR For African Americans > 60 (> 60); eGFR For Non-African Americans > 60 (> 60)
[2019-01-14 22:30] LABS: Troponin I 0.03 ng/mL (< 0.04)
[2019-01-14] MEDS ORDERED: Isovue-370 500 ML BOTTLE IVP ONE (23:18)
[2019-01-14] MEDS ORDERED: Acetaminophen 325 MG TABLET PO PRN (23:20)
[2019-01-14] MEDS ORDERED: Naloxone 0.4 MG/ML INJ IVP PRN (23:20)
[2019-01-15] MEDS ORDERED: *HR* Heparin 5,000 UNIT/ML VIAL IVP ONE (01:06)
[2019-01-15] MEDS ORDERED: *HR* Heparin 5,000 UNIT/ML VIAL IVP PRN ×2 (01:06)
[2019-01-15 01:26] LABS: Basophils % 0.1 %; Eosinophils # 0.1 K/mcL (0.0-0.6); Eosinophils % 0.4 %; Hematocrit 41.6 % (37.5-50.1); Hemoglobin 13.8 g/dL (12.9-16.9); Immature Granulocytes % 0.4 % (0-4); Lymphocytes # 0.4 K/mcL (0.6-4.6); Lymphocytes % 3.3 %; Mean Corpuscular HGB Conc 33.2 g/dL (31.6-35.5); Mean Corpuscular Hemoglobin 31.4 pg (28.0-33.3); Mean Corpuscular Volume 94.5 fL (83.0-100.0); Mean Platelet Volume 9.2 fL (9.4-12.4); Monocytes # 0.1 K/mcL (0.0-1.3); Neutrophils # 10.9 K/mcL (1.6-8.9); Platelet Count 168 K/mcL (140-400); Red Cell Distribution Width 12.8 % (11.5-14.5); Segmented Neutrophils % 94.8 %; White Blood Count 11.5 K/mcL (4.3-11.1)
[2019-01-15 01:30] LABS: Heparin anti-factor XA UFH 0.04 IU/mL (0.30-0.70); Prothrombin Time 11.3 Seconds (9.4-12.1)
[2019-01-15 01:32] LABS: Activated Partial Thrombo Time 29.6 Seconds (26.0-36.0)
[2019-01-15 01:48] LABS: Alanine Aminotransferase 22 Units/L (7-52); Albumin 4.2 g/dL (3.5-5.7); Albumin/Globulin Ratio 1.4 (1.1-2.2); Alkaline Phosphatase 46 Units/L (34-104); Aspartate Amino Transferase 16 Units/L (13-39); BUN/Creatinine Ratio 22 (6-26); Bilirubin,Total 1.6 mg/dL (0.3-1.0); Blood Urea Nitrogen 17 mg/dL (8-23); Calcium 9.1 mg/dL (8.6-10.3); Carbon Dioxide 35 mEq/L (23-29); Chloride 88 mEq/L (98-107); Glucose 155 mg/dL (70-105); Osmolality,Calculated 271 (280-300); Potassium 4.9 mEq/L (3.5-5.1); Sodium 128 mEq/L (136-145); Total Protein 7.2 g/dL (6.4-8.9); eGFR For African Americans > 60 (> 60); eGFR For Non-African Americans > 60 (> 60)
[2019-01-15] MEDS ORDERED: cefTRIAXone 1,000 MG in Water for inj. (sterile) 10 ML IVPB SCH (02:00)
[2019-01-15] MEDS ORDERED: Azithromycin 500 MG in 0.9 % Sodium Chloride 250 ML IVPB SCH ×2 (02:00→12:00)
[2019-01-15 02:01] LABS: Thyroid Stimulating Hormone 1.662 mcIU/mL (0.340-5.600)
[2019-01-15] MEDS: Heparin 25,000 UNIT/250 ML D5W 25,000 UNIT/250 ML IV.SOLN IVC SCH ×2 (02:05→23:56)
[2019-01-15 02:25] LABS: Bilirubin,Urine Negative (Negative); Blood,Urine Trace-intact (Negative); Clarity,Urine Clear (Clear); Color,Urine Yellow (Yellow); Glucose,Urine (UA) Normal (Normal); Ketones,Urine 15 mg/dL (Negative); Leukocyte Esterase,Urine Negative (Negative); Nitrite,Urine Negative (Negative); PH,Urine 6.5 pH Units (5.0-8.0); Protein,Urine Trace mg/dL (Neg-Trace); Urobilinogen,Urine Normal (Normal)
[2019-01-15 02:31] LABS: Bacteria,Urine None Seen per hpf (None-Few); Hyaline Casts,Urine None Seen per lpf (None-Few); RBC,Urine 0-3 per hpf (0-3); Squamous Epithelial Cell,Urine None Seen per lpf (None-Few); WBC,Urine 0-3 per hpf (0-3)
[2019-01-15] MEDS: Ipratropium/Albuterol Neb 3 ML IH SCH ×6 (03:16→23:57)
[2019-01-15] MEDS ORDERED: MethylPREDNISolone 40 MG/ML VIAL IVP SCH (06:00)
[2019-01-15] MEDS ORDERED: Perflutren Lipid Microsphere 1.3 ML in 0.9 % Sodium Chloride 8.7 ML IVP ONE (08:24)
[2019-01-15] MEDS ORDERED: Furosemide 40 MG/4 ML VIAL IVP SCH (09:00)
[2019-01-15] MEDS: Furosemide 40 MG/4 ML VIAL IVP SCH ×2 (09:42→15:52)
[2019-01-15] MEDS ORDERED: Budesonide/Formoterol 160/4.5 1 PUFF INH IH SCH (10:00)
[2019-01-15] MEDS: Budesonide Neb 0.5 MG/2 ML IH SCH ×2 (10:34→22:49)
[2019-01-15] MEDS: MethylPREDNISolone 40 MG/ML VIAL IVP SCH ×2 (11:53→15:52)
[2019-01-15] MEDS: cefTRIAXone 1,000 MG in 0.9 % Sodium Chloride Mini Bag 100 ML IVPB SCH (12:35)
[2019-01-15] MEDS ORDERED: *HR* LORazepam 2 MG/ML VIAL IVP PRN (15:36)
[2019-01-16] MEDS: MethylPREDNISolone 40 MG/ML VIAL IVP SCH ×3 (00:07→18:01)
[2019-01-16] MEDS: Ipratropium/Albuterol Neb 3 ML IH SCH ×5 (03:27→20:06)
[2019-01-16 06:27] LABS: Basophils % 0.1 %; Hematocrit 36.1 % (37.5-50.1); Hemoglobin 12.7 g/dL (12.9-16.9); Immature Granulocytes % 0.6 % (0-4); Lymphocytes # 0.4 K/mcL (0.6-4.6); Lymphocytes % 4.3 %; Mean Corpuscular HGB Conc 35.2 g/dL (31.6-35.5); Mean Corpuscular Hemoglobin 31.4 pg (28.0-33.3); Mean Corpuscular Volume 89.4 fL (83.0-100.0); Mean Platelet Volume 9.5 fL (9.4-12.4); Monocytes # 0.3 K/mcL (0.0-1.3); Monocytes % 2.8 %; Neutrophils # 9.2 K/mcL (1.6-8.9); Platelet Count 157 K/mcL (140-400); Red Blood Count 4.04 M/mcL (4.19-5.50); Red Cell Distribution Width 12.6 % (11.5-14.5); Segmented Neutrophils % 92.2 %
[2019-01-16 06:51] LABS: Troponin I 0.04 ng/mL (< 0.04)
[2019-01-16] MEDS: Budesonide Neb 0.5 MG/2 ML IH SCH ×2 (07:19→20:06)
[2019-01-16 08:32] LABS: BUN/Creatinine Ratio 29 (6-26); Blood Urea Nitrogen 24 mg/dL (8-23); Calcium 8.3 mg/dL (8.6-10.3); Carbon Dioxide 30 mEq/L (23-29); Chloride 90 mEq/L (98-107); Glucose 235 mg/dL (70-105); Osmolality,Calculated 284 (280-300); Potassium 3.6 mEq/L (3.5-5.1); Sodium 131 mEq/L (136-145); eGFR For African Americans > 60 (> 60); eGFR For Non-African Americans > 60 (> 60)
[2019-01-16 08:52] LABS: Chol/HDL Ratio 2.3 (0-4.9)
[2019-01-16] MEDS: Furosemide 40 MG/4 ML VIAL IVP SCH ×2 (09:21→18:01)
[2019-01-16] MEDS: Azithromycin 250 MG TABLET PO SCH (09:22)
[2019-01-16] MEDS: cefTRIAXone 1,000 MG in 0.9 % Sodium Chloride Mini Bag 100 ML IVPB SCH (09:22)
[2019-01-16] MEDS: Diltiazem CD (24hr) 240 MG CAPSULE PO SCH (11:12)
[2019-01-16] MEDS ORDERED: Perflutren Lipid Microsphere 1.3 ML in 0.9 % Sodium Chloride 8.7 ML IVP ONE (21:28)
[2019-01-16] MEDS: Heparin 25,000 UNIT/250 ML D5W 25,000 UNIT/250 ML IV.SOLN IVC SCH (22:35)
[2019-01-17] MEDS: Ipratropium/Albuterol Neb 3 ML IH SCH ×6 (00:04→20:00)
[2019-01-17] MEDS: *HR* Metoprolol 5 MG/5 ML VIAL IVP PRN (00:29)
[2019-01-17] MEDS: MethylPREDNISolone 40 MG/ML VIAL IVP SCH (06:44)
[2019-01-17 06:56] LABS: Basophils % 0.1 %; Hematocrit 36.5 % (37.5-50.1); Hemoglobin 12.7 g/dL (12.9-16.9); Immature Granulocytes % 0.7 % (0-4); Lymphocytes # 0.3 K/mcL (0.6-4.6); Lymphocytes % 2.7 %; Mean Corpuscular HGB Conc 34.8 g/dL (31.6-35.5); Mean Corpuscular Hemoglobin 31.5 pg (28.0-33.3); Mean Corpuscular Volume 90.6 fL (83.0-100.0); Mean Platelet Volume 9.8 fL (9.4-12.4); Monocytes # 0.5 K/mcL (0.0-1.3); Monocytes % 4.1 %; Neutrophils # 10.5 K/mcL (1.6-8.9); Platelet Count 153 K/mcL (140-400); Red Blood Count 4.03 M/mcL (4.19-5.50); Red Cell Distribution Width 12.7 % (11.5-14.5); Segmented Neutrophils % 92.4 %; White Blood Count 11.4 K/mcL (4.3-11.1)
[2019-01-17 07:14] LABS: BUN/Creatinine Ratio 32 (6-26); Blood Urea Nitrogen 30 mg/dL (8-23); Calcium 8.5 mg/dL (8.6-10.3); Carbon Dioxide 34 mEq/L (23-29); Chloride 90 mEq/L (98-107); Glucose 259 mg/dL (70-105); Osmolality,Calculated 299 (280-300); Potassium 3.4 mEq/L (3.5-5.1); Sodium 137 mEq/L (136-145); eGFR For African Americans > 60 (> 60); eGFR For Non-African Americans > 60 (> 60)
[2019-01-17] MEDS ORDERED: *HR* Dextrose 50 % in Water (Syg) 50 ML SYRINGE IVP PRN (07:27)
[2019-01-17] MEDS ORDERED: D5% in Water 1,000 ML IVC PRN (07:27)
[2019-01-17] MEDS ORDERED: Dextrose Gel 15 GM/37.5 ML TUBE PO PRN ×2 (07:27)
[2019-01-17] MEDS: Budesonide Neb 0.5 MG/2 ML IH SCH ×2 (07:39→20:00)
[2019-01-17] MEDS: Insulin LISPRO 300 UNITS/3 ML VIAL SQ SCH ×3 (08:59→16:39)
[2019-01-17] MEDS: cefTRIAXone 1,000 MG in 0.9 % Sodium Chloride Mini Bag 100 ML IVPB SCH (09:00)
[2019-01-17] MEDS: Azithromycin 250 MG TABLET PO SCH (09:00)
[2019-01-17] MEDS: Furosemide 40 MG/4 ML VIAL IVP SCH (09:00)
[2019-01-17] MEDS: Diltiazem CD (24hr) 240 MG CAPSULE PO SCH (09:00)
[2019-01-17] MEDS: Heparin 25,000 UNIT/250 ML D5W 25,000 UNIT/250 ML IV.SOLN IVC SCH (23:36)
[2019-01-18] MEDS: Ipratropium/Albuterol Neb 3 ML IH SCH ×7 (00:16→23:29)
[2019-01-18 02:47] LABS: Hematocrit 36.1 % (37.5-50.1); Hemoglobin 12.4 g/dL (12.9-16.9); Immature Granulocytes % 0.5 % (0-4); Lymphocytes # 0.4 K/mcL (0.6-4.6); Lymphocytes % 4.1 %; Mean Corpuscular HGB Conc 34.3 g/dL (31.6-35.5); Mean Corpuscular Hemoglobin 31.9 pg (28.0-33.3); Mean Corpuscular Volume 92.8 fL (83.0-100.0); Mean Platelet Volume 10.1 fL (9.4-12.4); Monocytes # 0.6 K/mcL (0.0-1.3); Monocytes % 5.6 %; Neutrophils # 9.5 K/mcL (1.6-8.9); Platelet Count 128 K/mcL (140-400); Red Blood Count 3.89 M/mcL (4.19-5.50); Red Cell Distribution Width 12.9 % (11.5-14.5); Segmented Neutrophils % 89.8 %; White Blood Count 10.6 K/mcL (4.3-11.1)
[2019-01-18 03:07] LABS: BUN/Creatinine Ratio 38 (6-26); Blood Urea Nitrogen 35 mg/dL (8-23); Calcium 8.5 mg/dL (8.6-10.3); Carbon Dioxide 34 mEq/L (23-29); Chloride 93 mEq/L (98-107); Glucose 275 mg/dL (70-105); Osmolality,Calculated 302 (280-300); Potassium 3.3 mEq/L (3.5-5.1); Sodium 137 mEq/L (136-145); eGFR For African Americans > 60 (> 60); eGFR For Non-African Americans > 60 (> 60)
[2019-01-18] MEDS: *HR* Metoprolol 5 MG/5 ML VIAL IVP PRN (06:02)
[2019-01-18] MEDS: Budesonide Neb 0.5 MG/2 ML IH SCH ×2 (07:25→19:26)
[2019-01-18] MEDS: Diltiazem CD (24hr) 180 MG CAPSULE PO SCH ×2 (08:11→08:17)
[2019-01-18] MEDS: cefTRIAXone 1,000 MG in 0.9 % Sodium Chloride Mini Bag 100 ML IVPB SCH (08:16)
[2019-01-18] MEDS: Apixaban 5 MG TABLET PO SCH ×2 (08:17→20:23)
[2019-01-18] MEDS: Insulin LISPRO 300 UNITS/3 ML VIAL SQ SCH ×3 (08:17→16:33)
[2019-01-18] MEDS: Azithromycin 250 MG TABLET PO SCH (08:17)
[2019-01-18] MEDS: MethylPREDNISolone 40 MG/ML VIAL IVP SCH (08:17)
[2019-01-18] MEDS: Furosemide 40 MG/4 ML VIAL IVP SCH (10:08)
[2019-01-18] MEDS: Metoprolol XL (24 HR) Succ 25 MG TAB.ER.24H PO SCH (14:09)
[2019-01-19] MEDS: Ipratropium/Albuterol Neb 3 ML IH SCH ×6 (03:32→23:48)
[2019-01-19 06:07] LABS: Basophils % 0.1 %; Hematocrit 38.7 % (37.5-50.1); Hemoglobin 12.6 g/dL (12.9-16.9); Immature Granulocytes % 0.8 % (0-4); Lymphocytes # 0.5 K/mcL (0.6-4.6); Lymphocytes % 3.9 %; Mean Corpuscular HGB Conc 32.6 g/dL (31.6-35.5); Mean Corpuscular Hemoglobin 31.7 pg (28.0-33.3); Mean Corpuscular Volume 97.2 fL (83.0-100.0); Mean Platelet Volume 9.9 fL (9.4-12.4); Monocytes # 0.7 K/mcL (0.0-1.3); Monocytes % 6.2 %; Neutrophils # 10.4 K/mcL (1.6-8.9); Platelet Count 121 K/mcL (140-400); Red Blood Count 3.98 M/mcL (4.19-5.50); Red Cell Distribution Width 13.1 % (11.5-14.5); White Blood Count 11.6 K/mcL (4.3-11.1)
[2019-01-19 06:39] LABS: BUN/Creatinine Ratio 48 (6-26); Blood Urea Nitrogen 40 mg/dL (8-23); Calcium 8.8 mg/dL (8.6-10.3); Carbon Dioxide 36 mEq/L (23-29); Chloride 93 mEq/L (98-107); Glucose 255 mg/dL (70-105); Osmolality,Calculated 304 (280-300); Potassium 4.2 mEq/L (3.5-5.1); Sodium 138 mEq/L (136-145); eGFR For African Americans > 60 (> 60); eGFR For Non-African Americans > 60 (> 60)
[2019-01-19] MEDS: Budesonide Neb 0.5 MG/2 ML IH SCH ×2 (07:25→20:18)
[2019-01-19] MEDS: Diltiazem CD (24hr) 180 MG CAPSULE PO SCH (08:22)
[2019-01-19] MEDS: Azithromycin 250 MG TABLET PO SCH (08:22)
[2019-01-19] MEDS: Furosemide 40 MG/4 ML VIAL IVP SCH (08:23)
[2019-01-19] MEDS: Metoprolol XL (24 HR) Succ 25 MG TAB.ER.24H PO SCH (08:23)
[2019-01-19] MEDS: MethylPREDNISolone 40 MG/ML VIAL IVP SCH (08:23)
[2019-01-19] MEDS: cefTRIAXone 1,000 MG in 0.9 % Sodium Chloride Mini Bag 100 ML IVPB SCH (08:23)
[2019-01-19] MEDS: Insulin LISPRO 300 UNITS/3 ML VIAL SQ SCH ×3 (08:23→17:11)
[2019-01-19] MEDS: Apixaban 5 MG TABLET PO SCH ×2 (08:23→21:26)
[2019-01-19] MEDS ORDERED: GI Cocktail 40 ML EACH PO ONE (16:34)
[2019-01-19] MEDS: Heparin 25,000 UNIT/250 ML D5W 25,000 UNIT/250 ML IV.SOLN IVC SCH (21:17)
[2019-01-20] MEDS: Ipratropium/Albuterol Neb 3 ML IH SCH ×3 (04:04→11:24)
[2019-01-20 06:58] VITALS: BP 130/83
[2019-01-20] MEDS: Apixaban 5 MG TABLET PO SCH (07:25)
[2019-01-20] MEDS: cefTRIAXone 1,000 MG in 0.9 % Sodium Chloride Mini Bag 100 ML IVPB SCH (07:26)
[2019-01-20] MEDS: Insulin LISPRO 300 UNITS/3 ML VIAL SQ SCH (07:26)
[2019-01-20] MEDS: Azithromycin 250 MG TABLET PO SCH (07:26)
[2019-01-20] MEDS: Diltiazem CD (24hr) 180 MG CAPSULE PO SCH (07:26)
[2019-01-20] MEDS: Furosemide 40 MG/4 ML VIAL IVP SCH (07:27)
[2019-01-20] MEDS: Budesonide Neb 0.5 MG/2 ML IH SCH (07:41)
[2019-01-20] MEDS ORDERED: predniSONE 20 MG TABLET PO SCH (09:00)
[2019-01-20] MEDS ORDERED: Metoprolol XL (24 HR) Succ 25 MG TAB.ER.24H PO SCH (09:00)
[2019-01-20 09:33] LABS: Basophils % 0.2 %; Hematocrit 40.5 % (37.5-50.1); Hemoglobin 12.9 g/dL (12.9-16.9); Immature Granulocytes % 0.6 % (0-4); Lymphocytes # 0.6 K/mcL (0.6-4.6); Lymphocytes % 4.8 %; Mean Corpuscular HGB Conc 31.9 g/dL (31.6-35.5); Mean Corpuscular Hemoglobin 31.2 pg (28.0-33.3); Mean Corpuscular Volume 97.8 fL (83.0-100.0); Mean Platelet Volume 9.9 fL (9.4-12.4); Monocytes # 0.7 K/mcL (0.0-1.3); Monocytes % 5.5 %; Neutrophils # 11.1 K/mcL (1.6-8.9); Platelet Count 139 K/mcL (140-400); Red Blood Count 4.14 M/mcL (4.19-5.50); Red Cell Distribution Width 12.9 % (11.5-14.5); Segmented Neutrophils % 88.9 %; White Blood Count 12.5 K/mcL (4.3-11.1)
[2019-01-20 09:55] LABS: BUN/Creatinine Ratio 41 (6-26); Blood Urea Nitrogen 37 mg/dL (8-23); Calcium 8.7 mg/dL (8.6-10.3); Carbon Dioxide 35 mEq/L (23-29); Chloride 93 mEq/L (98-107); Glucose 259 mg/dL (70-105); Osmolality,Calculated 300 (280-300); Potassium 4.2 mEq/L (3.5-5.1); Sodium 136 mEq/L (136-145); eGFR For African Americans > 60 (> 60); eGFR For Non-African Americans > 60 (> 60)
== END 2019-01-20 13:16 | disposition home or self-care (01) | DRG 175 ==
LOC: EMEROOARM 21:30 → 2ANU 21:30 → SUATTDRO 01-15 01:08 → 2ANU 01-15 03:35 → SUATTDRO 01-15 12:55
PROVIDERS: ADMIT Internal Medicine; ATTEND Family Medicine

== ENCOUNTER 2020-02-03 14:47 | Inpatient (IN) ==
[2020-02-03] MEDS ORDERED: 0.9 % Sodium Chloride 1,000 ML IVC ONE (15:10)
[2020-02-03 15:36] LABS: Hematocrit 37.3 % (37.5-50.1); Hemoglobin 11.5 g/dL (12.9-16.9); Mean Corpuscular HGB Conc 30.8 g/dL (31.6-35.5); Mean Corpuscular Hemoglobin 29.4 pg (28.0-33.3); Mean Corpuscular Volume 95.4 fL (83.0-100.0); Mean Platelet Volume 10.1 fL (9.4-12.4); Platelet Count 173 K/mcL (140-400); Red Blood Count 3.91 M/mcL (4.19-5.50); Red Cell Distribution Width 13.4 % (11.5-14.5); White Blood Count 12.1 K/mcL (4.3-11.1)
[2020-02-03 15:55] LABS: BUN/Creatinine Ratio 20 (6-26); Blood Urea Nitrogen 15 mg/dL (8-23); Calcium 8.6 mg/dL (8.6-10.3); Carbon Dioxide 35 mEq/L (23-29); Chloride 93 mEq/L (98-107); Glucose 325 mg/dL (70-105); Osmolality,Calculated 299 (280-300); Potassium 4.1 mEq/L (3.5-5.1); Sodium 138 mEq/L (136-145); eGFR For African Americans > 60 (> 60); eGFR For Non-African Americans > 60 (> 60)
[2020-02-03 15:58] LABS: Bilirubin,Urine Negative (Negative); Blood,Urine Negative (Negative); Clarity,Urine Clear (Clear); Color,Urine Yellow (Yellow); Glucose,Urine (UA) >=1000 mg/dL (Normal); Ketones,Urine Negative (Negative); Leukocyte Esterase,Urine Negative (Negative); Mucus,Urine Few per lpf (None-Few); Nitrite,Urine Negative (Negative); PH,Urine 6.5 pH Units (5.0-8.0); Protein,Urine 30 mg/dL (Neg-Trace); RBC,Urine 0-3 per hpf (0-3); Specific Gravity,Urine 1.024 (1.010-1.025); Squamous Epithelial Cell,Urine Few per hpf (None-Few); Urobilinogen,Urine Normal (Normal); WBC,Urine 0-3 per hpf (0-3)
[2020-02-03] MEDS ORDERED: Piperacillin/Tazobactam 3.375 GM in 0.9 % Sodium Chloride Mini Bag 100 ML IVPB ONE (16:40)
[2020-02-03] MEDS ORDERED: Vancomycin 1,250 MG/262.5 ML IV.SOLN IVPB ONE (16:40)
[2020-02-03] MEDS ORDERED: *HR* HYDROcodone/Acet 5/325 mg TABLET PO PRN (16:54)
[2020-02-03] MEDS ORDERED: Naloxone 0.4 MG/ML INJ IVP PRN (16:54)
[2020-02-03] MEDS ORDERED: Acetaminophen 325 MG TABLET PO PRN (16:54)
[2020-02-03] MEDS ORDERED: Ondansetron 4 MG/2 ML VIAL IVP PRN (16:54)
[2020-02-03] MEDS ORDERED: *HR* Dextrose 50 % in Water (Vial) 50 ML VIAL IVP PRN (16:57)
[2020-02-03] MEDS ORDERED: Dextrose Gel 15 GM/37.5 ML TUBE PO PRN ×2 (16:57)
[2020-02-03] MEDS ORDERED: D5% in Water 1,000 ML IVC PRN (16:57)
[2020-02-03] MEDS ORDERED: Ipratropium/Albuterol Neb 3 ML IH PRN (17:41)
[2020-02-03] MEDS: *HR* OxyCODONE Immed Rel 5 MG TABLET PO PRN (17:53)
[2020-02-03] MEDS: Ringers Solution, Lactated 1,000 ML IVC SCH (17:53)
[2020-02-03] MEDS: Insulin LISPRO 300 UNITS/3 ML VIAL SUBQ SCH (17:59)
[2020-02-03] MEDS: Vancomycin 1,250 MG/262.5 ML IV.SOLN IVPB SCH (18:16)
[2020-02-03] MEDS ORDERED: Gadolinium Contrast Agent (WT Based) IV PRN (18:16)
[2020-02-03 18:33] LABS: Estimated Average Glucose 229 mg/dl; Hemoglobin A1C 9.6 %
[2020-02-03 18:34] LABS: C-Reactive Protein 60 mg/L (Less than 10); Troponin I < 0.03 ng/mL (< 0.04)
[2020-02-03] MEDS: Apixaban 5 MG TABLET PO SCH (20:36)
[2020-02-04] MEDS: Piperacillin/Tazobactam 3.375 GM in 0.9 % Sodium Chloride Mini Bag 100 ML IVPB SCH ×4 (00:59→23:35)
[2020-02-04] MEDS: Insulin LISPRO 300 UNITS/3 ML VIAL SUBQ SCH ×5 (01:19→21:01)
[2020-02-04 01:55] LABS: Basophils % 0.1 %; Eosinophils # 0.1 K/mcL (0.0-0.6); Eosinophils % 0.3 %; Hematocrit 39.1 % (37.5-50.1); Immature Granulocytes % 0.3 % (0-4); Lymphocytes # 1.4 K/mcL (0.6-4.6); Lymphocytes % 9.3 %; Mean Corpuscular HGB Conc 30.7 g/dL (31.6-35.5); Mean Corpuscular Hemoglobin 29.1 pg (28.0-33.3); Mean Corpuscular Volume 94.7 fL (83.0-100.0); Mean Platelet Volume 9.9 fL (9.4-12.4); Monocytes # 1.2 K/mcL (0.0-1.3); Monocytes % 7.9 %; Neutrophils # 12.7 K/mcL (1.6-8.9); Platelet Count 168 K/mcL (140-400); Red Blood Count 4.13 M/mcL (4.19-5.50); Red Cell Distribution Width 13.6 % (11.5-14.5); Segmented Neutrophils % 82.1 %; White Blood Count 15.5 K/mcL (4.3-11.1)
[2020-02-04 02:04] LABS: INR 1.4; Prothrombin Time 16.4 Seconds (9.4-12.1)
[2020-02-04 02:07] LABS: Activated Partial Thrombo Time 32.9 Seconds (26.0-36.0)
[2020-02-04 02:21] LABS: Alanine Aminotransferase 33 Units/L (7-52); Albumin 3.7 g/dL (3.5-5.7); Alkaline Phosphatase 101 Units/L (34-104); Aspartate Amino Transferase 53 Units/L (13-39); BUN/Creatinine Ratio 25 (6-26); Bilirubin,Total 0.6 mg/dL (0.3-1.0); Blood Urea Nitrogen 17 mg/dL (8-23); Calcium 8.6 mg/dL (8.6-10.3); Carbon Dioxide 35 mEq/L (23-29); Chloride 97 mEq/L (98-107); Globulin 3.7 g/dL (2.4-3.5); Glucose 83 mg/dL (70-105); Magnesium 1.8 mg/dL (1.6-2.6); Osmolality,Calculated 291 (280-300); Phosphorous 5.2 mg/dL (2.7-4.5); Potassium 4.8 mEq/L (3.5-5.1); Sodium 140 mEq/L (136-145); Total Protein 7.4 g/dL (6.4-8.9); eGFR For African Americans > 60 (> 60); eGFR For Non-African Americans > 60 (> 60)
[2020-02-04 02:22] LABS: Troponin I 0.04 ng/mL (< 0.04)
[2020-02-04 02:41] LABS: Folate 13.8 ng/mL (3.0-16.0)
[2020-02-04] MEDS: Vancomycin 1,250 MG/262.5 ML IV.SOLN IVPB SCH (04:48)
[2020-02-04] MEDS ORDERED: *HR* HYDROmorphone PF 0.5 MG/0.5 ML SYRINGE IVP PRN (07:31)
[2020-02-04] MEDS ORDERED: Ondansetron 4 MG/2 ML VIAL IVP PRN (07:31)
[2020-02-04] MEDS ORDERED: *HR* OxyCODONE Immed Rel 5 MG TABLET PO PRN (07:31)
[2020-02-04] MEDS: DilTIAZem CD (24hr) 240 MG CAP.ER.24H PO SCH (07:37)
[2020-02-04] MEDS ORDERED: Lidocaine 1% 0 ML ONE (07:42)
[2020-02-04] MEDS ORDERED: *HR* FentaNYL (PF) 100 MCG/2 ML VIAL ONE (07:46)
[2020-02-04] MEDS ORDERED: Lidocaine -MPF 2% 2 ML VIAL ONE ×2 (07:46→09:58)
[2020-02-04] MEDS ORDERED: Lidocaine -MPF 2% 5 ML VIAL ONE (08:21)
[2020-02-04] MEDS ORDERED: *HR* Midazolam HCl 2 MG/2 ML VIAL ONE (08:22)
[2020-02-04] MEDS ORDERED: Ropivacaine/PF 0.5% 30 ML VIAL ONE (08:22)
[2020-02-04] MEDS ORDERED: Iron Sucrose Complex 400 MG in 0.9 % Sodium Chloride 250 ML IVPB ONE (08:35)
[2020-02-04] MEDS ORDERED: Vancomycin (wt based) 1,000 MG VIAL IVPB SCH (09:00)
[2020-02-04] MEDS: Ringers Solution, Lactated 1,000 ML IVC SCH ×2 (09:40→18:01)
[2020-02-04] MEDS: Apixaban 5 MG TABLET PO SCH ×2 (09:40→21:01)
[2020-02-04] MEDS ORDERED: Ipratropium/Albuterol Neb 3 ML IH ONE (12:53)
[2020-02-04 13:39] LABS: ABG Base Excess 8 mEq/L (-2 to 3); ABG HCO3 39 mEq/L (21-27); ABG Oxygen Saturation 100 % (95-98); ABG PCO2 90 mmHg (35-45); ABG PH 7.25 pH Units (7.32-7.45); ABG PO2 221 mmHg (85-104); ABG TCO2 42 mEq/L (20-26)
[2020-02-04] MEDS: Ipratropium/Albuterol Neb 3 ML IH SCH ×2 (15:49→22:00)
[2020-02-04] MEDS: MethylPREDNISolone 40 MG/ML VIAL IVP SCH ×2 (16:40→23:35)
[2020-02-04] MEDS: *HR* OxyCODONE Immed Rel 5 MG TABLET PO PRN (18:35)
[2020-02-04] MEDS: GuaiFENesin/Dextromethorphan TABLET PO SCH (21:01)
[2020-02-05] MEDS: Ringers Solution, Lactated 1,000 ML IVC SCH (02:27)
[2020-02-05] MEDS: Ipratropium/Albuterol Neb 3 ML IH SCH ×4 (03:56→22:25)
[2020-02-05] MEDS: Vancomycin 1,250 MG/262.5 ML IV.SOLN IVPB SCH (05:31)
[2020-02-05] MEDS: Insulin LISPRO 300 UNITS/3 ML VIAL SUBQ SCH ×4 (08:14→21:12)
[2020-02-05] MEDS: Piperacillin/Tazobactam 3.375 GM in 0.9 % Sodium Chloride Mini Bag 100 ML IVPB SCH ×3 (08:15→23:00)
[2020-02-05] MEDS: Apixaban 5 MG TABLET PO SCH ×2 (08:15→21:10)
[2020-02-05] MEDS: DilTIAZem CD (24hr) 240 MG CAP.ER.24H PO SCH (08:15)
[2020-02-05] MEDS: Furosemide 40 MG TABLET PO SCH (08:15)
[2020-02-05] MEDS: GuaiFENesin/Dextromethorphan TABLET PO SCH ×2 (08:15→21:10)
[2020-02-05] MEDS: MethylPREDNISolone 40 MG/ML VIAL IVP SCH ×2 (08:15→15:00)
[2020-02-05] MEDS: Metoprolol XL (24 HR) Succ 25 MG TAB.ER.24H PO SCH (11:45)
[2020-02-05 12:33] LABS: Basophils % 0.1 %; Eosinophils % 0.1 %; Hematocrit 35.3 % (37.5-50.1); Hemoglobin 10.7 g/dL (12.9-16.9); Immature Granulocytes % 0.7 % (0-4); Lymphocytes # 0.5 K/mcL (0.6-4.6); Lymphocytes % 3.4 %; Mean Corpuscular HGB Conc 30.3 g/dL (31.6-35.5); Mean Corpuscular Hemoglobin 28.5 pg (28.0-33.3); Mean Corpuscular Volume 94.1 fL (83.0-100.0); Mean Platelet Volume 9.9 fL (9.4-12.4); Monocytes # 0.3 K/mcL (0.0-1.3); Neutrophils # 13.1 K/mcL (1.6-8.9); Platelet Count 150 K/mcL (140-400); Red Blood Count 3.75 M/mcL (4.19-5.50); Red Cell Distribution Width 13.2 % (11.5-14.5); Segmented Neutrophils % 93.7 %; White Blood Count 13.9 K/mcL (4.3-11.1)
[2020-02-05 12:50] LABS: BUN/Creatinine Ratio 26 (6-26); Blood Urea Nitrogen 22 mg/dL (8-23); Calcium 8.1 mg/dL (8.6-10.3); Carbon Dioxide 31 mEq/L (23-29); Chloride 96 mEq/L (98-107); Glucose 313 mg/dL (70-105); Magnesium 1.7 mg/dL (1.6-2.6); Osmolality,Calculated 295 (280-300); Phosphorous 2.5 mg/dL (2.7-4.5); Potassium 4.1 mEq/L (3.5-5.1); Sodium 135 mEq/L (136-145); eGFR For African Americans > 60 (> 60); eGFR For Non-African Americans > 60 (> 60)
[2020-02-05] MEDS: *HR* OxyCODONE Immed Rel 5 MG TABLET PO PRN ×2 (15:00→21:09)
[2020-02-05] MEDS: Calcium Gluconate 1gm/50mL 1 GM/50 ML BAG IVPB SCH ×2 (17:40→18:53)
[2020-02-05] MEDS: Insulin DETEMIR 100 UNIT/ML X5UNITS SUBQ SCH (21:12)
[2020-02-06] MEDS: Ipratropium/Albuterol Neb 3 ML IH SCH ×5 (04:11→20:33)
[2020-02-06] MEDS: *HR* OxyCODONE Immed Rel 5 MG TABLET PO PRN (04:17)
[2020-02-06] MEDS: MethylPREDNISolone 40 MG/ML VIAL IVP SCH ×2 (06:25→17:43)
[2020-02-06 06:45] LABS: Basophils % 0.1 %; Hematocrit 34.1 % (37.5-50.1); Hemoglobin 10.7 g/dL (12.9-16.9); Immature Granulocytes % 0.7 % (0-4); Lymphocytes # 0.7 K/mcL (0.6-4.6); Lymphocytes % 3.9 %; Mean Corpuscular HGB Conc 31.4 g/dL (31.6-35.5); Mean Corpuscular Hemoglobin 29.4 pg (28.0-33.3); Mean Corpuscular Volume 93.7 fL (83.0-100.0); Mean Platelet Volume 10.3 fL (9.4-12.4); Monocytes # 0.7 K/mcL (0.0-1.3); Monocytes % 3.8 %; Neutrophils # 15.7 K/mcL (1.6-8.9); Platelet Count 155 K/mcL (140-400); Red Blood Count 3.64 M/mcL (4.19-5.50); Red Cell Distribution Width 13.3 % (11.5-14.5); Segmented Neutrophils % 91.5 %; White Blood Count 17.1 K/mcL (4.3-11.1)
[2020-02-06 07:07] LABS: BUN/Creatinine Ratio 35 (6-26); Blood Urea Nitrogen 25 mg/dL (8-23); Calcium 8.5 mg/dL (8.6-10.3); Carbon Dioxide 35 mEq/L (23-29); Chloride 96 mEq/L (98-107); Glucose 197 mg/dL (70-105); Magnesium 2.2 mg/dL (1.6-2.6); Osmolality,Calculated 292 (280-300); Phosphorous 3.3 mg/dL (2.7-4.5); Potassium 4.6 mEq/L (3.5-5.1); Sodium 136 mEq/L (136-145); eGFR For African Americans > 60 (> 60); eGFR For Non-African Americans > 60 (> 60)
[2020-02-06] MEDS: Piperacillin/Tazobactam 3.375 GM in 0.9 % Sodium Chloride Mini Bag 100 ML IVPB SCH ×2 (07:45→17:44)
[2020-02-06] MEDS: DilTIAZem CD (24hr) 180 MG CAP.ER.24H PO SCH (07:45)
[2020-02-06] MEDS: GuaiFENesin/Dextromethorphan TABLET PO SCH ×2 (07:46→20:01)
[2020-02-06] MEDS: Furosemide 40 MG TABLET PO SCH (07:46)
[2020-02-06] MEDS: Apixaban 5 MG TABLET PO SCH ×2 (07:46→20:02)
[2020-02-06] MEDS: Metoprolol XL (24 HR) Succ 25 MG TAB.ER.24H PO SCH (08:11)
[2020-02-06] MEDS: Insulin LISPRO 300 UNITS/3 ML VIAL SUBQ SCH ×4 (08:19→20:31)
[2020-02-06] MEDS ORDERED: *HR* LORazepam 2 MG/ML VIAL IVP PRN ×3 (08:21)
[2020-02-06] MEDS ORDERED: *HR* LORazepam 1 MG TABLET PO ONE (08:23)
[2020-02-06] MEDS: Thiamine (B-1) 100 MG TABLET PO SCH (09:36)
[2020-02-06] MEDS: Folic Acid 1 MG TABLET PO SCH (09:36)
[2020-02-06] MEDS: Vitamin B Complex/Vit C/Vit E 1 EACH TABLET PO SCH (09:36)
[2020-02-06] MEDS: Calcium Gluconate 1gm/50mL 1 GM/50 ML BAG IVPB SCH ×2 (09:37→10:42)
[2020-02-06] MEDS ORDERED: ceFAZolin 1,000 MG, Sodium Chloride IRRigation 1,000 ML IR ONE (09:50)
[2020-02-06] MEDS ORDERED: Gadolinium Contrast Agent (WT Based) IV PRN (11:53)
[2020-02-06] MEDS: *HR* LORazepam 1 MG TABLET PO SCH ×2 (18:04→20:02)
[2020-02-06] MEDS: Insulin DETEMIR 100 UNIT/ML X5UNITS SUBQ SCH (20:32)
[2020-02-06] MEDS ORDERED: Levalbuterol 1 PUFF INHALER IH PRN (22:44)
[2020-02-06] MEDS ORDERED: *HR* Metoprolol 5 MG/5 ML VIAL IVP ONE ×2 (23:21→23:24)
[2020-02-06] MEDS ORDERED: Furosemide 40 MG/4 ML VIAL ONE (23:26)
[2020-02-06] MEDS ORDERED: Furosemide 40 MG/4 ML VIAL IVP ONE (23:27)
[2020-02-06 23:29] LABS: ABG Base Excess 7 mEq/L (-2 to 3); ABG HCO3 37 mEq/L (21-27); ABG Oxygen Saturation 99 % (95-98); ABG PCO2 82 mmHg (35-45); ABG PH 7.27 pH Units (7.32-7.45); ABG PO2 154 mmHg (85-104); ABG TCO2 40 mEq/L (20-26); Blood Gas Modality ST
[2020-02-06] MEDS ORDERED: Levalbuterol Neb 1.25 MG/3 ML ONE (23:31)
[2020-02-07] MEDS: Levalbuterol Neb 1.25 MG/3 ML IH SCH ×5 (00:08→21:59)
[2020-02-07 00:31] LABS: Basophils % 0.1 %; Hematocrit 36.5 % (37.5-50.1); Hemoglobin 11.1 g/dL (12.9-16.9); Lymphocytes # 0.4 K/mcL (0.6-4.6); Lymphocytes % 2.3 %; Mean Corpuscular HGB Conc 30.4 g/dL (31.6-35.5); Mean Corpuscular Hemoglobin 28.6 pg (28.0-33.3); Mean Corpuscular Volume 94.1 fL (83.0-100.0); Monocytes # 0.6 K/mcL (0.0-1.3); Monocytes % 3.3 %; Neutrophils # 15.4 K/mcL (1.6-8.9); Platelet Count 171 K/mcL (140-400); Red Blood Count 3.88 M/mcL (4.19-5.50); Red Cell Distribution Width 13.6 % (11.5-14.5); Segmented Neutrophils % 93.3 %; White Blood Count 16.5 K/mcL (4.3-11.1)
[2020-02-07 00:42] LABS: BUN/Creatinine Ratio 33 (6-26); Blood Urea Nitrogen 27 mg/dL (8-23); Calcium 8.6 mg/dL (8.6-10.3); Carbon Dioxide 34 mEq/L (23-29); Chloride 97 mEq/L (98-107); Glucose 279 mg/dL (70-105); Osmolality,Calculated 297 (280-300); Potassium 4.4 mEq/L (3.5-5.1); Sodium 136 mEq/L (136-145); eGFR For African Americans > 60 (> 60); eGFR For Non-African Americans > 60 (> 60)
[2020-02-07] MEDS: Piperacillin/Tazobactam 3.375 GM in 0.9 % Sodium Chloride Mini Bag 100 ML IVPB SCH ×3 (01:37→14:44)
[2020-02-07 03:35] LABS: Mixed Venous Blood pCO2 65 mmHg (44-46); Mixed Venous Blood pH 7.38 pH Units (7.34-7.36); Mixed Venous Blood pO2 49 mmHg (35-45)
[2020-02-07 04:29] LABS: Basophils % 0.1 %; Eosinophils % 0.1 %; Hematocrit 36.3 % (37.5-50.1); Hemoglobin 11.2 g/dL (12.9-16.9); Immature Granulocytes % 0.9 % (0-4); Lymphocytes # 0.5 K/mcL (0.6-4.6); Lymphocytes % 2.9 %; Mean Corpuscular HGB Conc 30.9 g/dL (31.6-35.5); Mean Corpuscular Hemoglobin 28.9 pg (28.0-33.3); Mean Corpuscular Volume 93.8 fL (83.0-100.0); Mean Platelet Volume 10.1 fL (9.4-12.4); Monocytes # 0.6 K/mcL (0.0-1.3); Monocytes % 3.6 %; Neutrophils # 14.8 K/mcL (1.6-8.9); Platelet Count 162 K/mcL (140-400); Red Blood Count 3.87 M/mcL (4.19-5.50); Red Cell Distribution Width 13.5 % (11.5-14.5); Segmented Neutrophils % 92.4 %
[2020-02-07 04:32] LABS: VBG Ionized Calcium 1.08 mmol/L (1.15-1.35)
[2020-02-07 04:53] LABS: BUN/Creatinine Ratio 33 (6-26); Blood Urea Nitrogen 25 mg/dL (8-23); Calcium 8.6 mg/dL (8.6-10.3); Carbon Dioxide 36 mEq/L (23-29); Chloride 95 mEq/L (98-107); Glucose 233 mg/dL (70-105); Osmolality,Calculated 296 (280-300); Potassium 4.1 mEq/L (3.5-5.1); Sodium 137 mEq/L (136-145); eGFR For African Americans > 60 (> 60); eGFR For Non-African Americans > 60 (> 60)
[2020-02-07] MEDS: MethylPREDNISolone 40 MG/ML VIAL IVP SCH ×2 (06:39→16:27)
[2020-02-07] MEDS ORDERED: methylPREDNISolone 125 MG/2 ML VIAL IVP ONE (09:04)
[2020-02-07] MEDS: Insulin LISPRO 300 UNITS/3 ML VIAL SUBQ SCH ×4 (10:08→20:23)
[2020-02-07] MEDS: DilTIAZem CD (24hr) 180 MG CAP.ER.24H PO SCH (10:09)
[2020-02-07] MEDS: GuaiFENesin/Dextromethorphan TABLET PO SCH ×2 (10:10→20:24)
[2020-02-07] MEDS: Metoprolol XL (24 HR) Succ 25 MG TAB.ER.24H PO SCH (10:10)
[2020-02-07] MEDS: Thiamine (B-1) 100 MG TABLET PO SCH (10:10)
[2020-02-07] MEDS: Apixaban 5 MG TABLET PO SCH ×2 (10:10→20:24)
[2020-02-07] MEDS: Vitamin B Complex/Vit C/Vit E 1 EACH TABLET PO SCH (10:10)
[2020-02-07] MEDS: Folic Acid 1 MG TABLET PO SCH (10:11)
[2020-02-07] MEDS: Furosemide 40 MG TABLET PO SCH (10:11)
[2020-02-07] MEDS: *HR* LORazepam 1 MG TABLET PO SCH ×3 (11:14→20:24)
[2020-02-07 17:45] LABS: Adenovirus Not Detected (Not Detect); Bordetella Pertussis Not Detected (Not Detect); Chlamydophila pneumoniae Not Detected (Not Detect); Coronavirus 229E Not Detected (Not Detect); Coronavirus HKU1 Not Detected (Not Detect); Coronavirus NL63 Not Detected (Not Detect); Coronavirus OC43 Not Detected (Not Detect); Human Metapneumovirus Not Detected (Not Detect); Human Rhinovirus/Enterovirus Not Detected (Not Detect); Influenza A Subtype 2009 H1 Not Detected (Not Detect); Influenza B Not Detected (Not Detect); Mycoplasma pneumoniae Not Detected (Not Detect); Parainfluenza Virus 1 Not Detected (Not Detect); Parainfluenza Virus 2 Not Detected (Not Detect); Parainfluenza Virus 3 Not Detected (Not Detect); Parainfluenza Virus 4 Not Detected (Not Detect); Respiratory Syncytial Virus Not Detected (Not Detect); SARS-CoV-2 Not Detected (Not Detect)
[2020-02-07 18:30] LABS: ABG Base Excess 20 mEq/L (-2 to 3); ABG HCO3 53 mEq/L (21-27); ABG Oxygen Saturation 93 % (95-98); ABG PCO2 103 mmHg (35-45); ABG PH 7.32 pH Units (7.32-7.45); ABG PO2 79 mmHg (85-104); ABG TCO2 > 50 mEq/L (20-26)
[2020-02-07] MEDS: Insulin DETEMIR 100 UNIT/ML X5UNITS SUBQ SCH (20:26)
[2020-02-07] MEDS: Calcium Gluconate 1gm/50mL 1 GM/50 ML BAG IVPB SCH ×2 (20:26→22:08)
[2020-02-08] MEDS: *HR* OxyCODONE Immed Rel 5 MG TABLET PO PRN (00:38)
[2020-02-08] MEDS: MethylPREDNISolone 40 MG/ML VIAL IVP SCH ×4 (00:39→18:16)
[2020-02-08] MEDS: Piperacillin/Tazobactam 3.375 GM in 0.9 % Sodium Chloride Mini Bag 100 ML IVPB SCH ×3 (00:39→15:09)
[2020-02-08] MEDS: Levalbuterol Neb 1.25 MG/3 ML IH SCH ×4 (03:33→21:33)
[2020-02-08 03:58] LABS: Basophils % 0.1 %; Hematocrit 39.6 % (37.5-50.1); Hemoglobin 11.6 g/dL (12.9-16.9); Immature Granulocytes % 1.1 % (0-4); Lymphocytes # 0.5 K/mcL (0.6-4.6); Lymphocytes % 2.7 %; Mean Corpuscular HGB Conc 29.3 g/dL (31.6-35.5); Mean Corpuscular Volume 95.7 fL (83.0-100.0); Mean Platelet Volume 9.6 fL (9.4-12.4); Monocytes # 0.4 K/mcL (0.0-1.3); Monocytes % 2.5 %; Neutrophils # 16.7 K/mcL (1.6-8.9); Platelet Count 215 K/mcL (140-400); Red Blood Count 4.14 M/mcL (4.19-5.50); Red Cell Distribution Width 13.5 % (11.5-14.5); Segmented Neutrophils % 93.6 %; White Blood Count 17.8 K/mcL (4.3-11.1)
[2020-02-08 04:20] LABS: BUN/Creatinine Ratio 33 (6-26); Blood Urea Nitrogen 27 mg/dL (8-23); Carbon Dioxide 42 mEq/L (23-29); Chloride 96 mEq/L (98-107); Glucose 197 mg/dL (70-105); Magnesium 2.1 mg/dL (1.6-2.6); Osmolality,Calculated 305 (280-300); Phosphorous 4.6 mg/dL (2.7-4.5); Potassium 4.1 mEq/L (3.5-5.1); Sodium 142 mEq/L (136-145); eGFR For African Americans > 60 (> 60); eGFR For Non-African Americans > 60 (> 60)
[2020-02-08] MEDS: Ringers Solution, Lactated 1,000 ML IVC SCH (07:27)
[2020-02-08] MEDS: Vancomycin 1,250 MG/262.5 ML IV.SOLN IVPB SCH (07:27)
[2020-02-08] MEDS: Insulin LISPRO 300 UNITS/3 ML VIAL SUBQ SCH ×5 (07:27→20:44)
[2020-02-08] MEDS: Apixaban 5 MG TABLET PO SCH ×2 (08:48→20:43)
[2020-02-08] MEDS: Furosemide 40 MG TABLET PO SCH (08:48)
[2020-02-08] MEDS: *HR* LORazepam 1 MG TABLET PO SCH ×3 (08:48→20:43)
[2020-02-08] MEDS: Metoprolol XL (24 HR) Succ 25 MG TAB.ER.24H PO SCH (08:48)
[2020-02-08] MEDS: Folic Acid 1 MG TABLET PO SCH (08:48)
[2020-02-08] MEDS: Thiamine (B-1) 100 MG TABLET PO SCH (08:48)
[2020-02-08] MEDS: Vitamin B Complex/Vit C/Vit E 1 EACH TABLET PO SCH (08:48)
[2020-02-08] MEDS: DilTIAZem CD (24hr) 180 MG CAP.ER.24H PO SCH (08:48)
[2020-02-08] MEDS: GuaiFENesin/Dextromethorphan TABLET PO SCH ×2 (08:48→20:42)
[2020-02-08] MEDS: Furosemide 40 MG/4 ML VIAL IVP SCH (16:04)
[2020-02-08 16:55] LABS: ABG Base Excess 20 mEq/L (-2 to 3); ABG HCO3 47 mEq/L (21-27); ABG Oxygen Saturation 98 % (95-98); ABG PCO2 63 mmHg (35-45); ABG PH 7.48 pH Units (7.32-7.45); ABG PO2 99 mmHg (85-104); ABG TCO2 49 mEq/L (20-26); Blood Gas Modality AVAPS; Blood Gas VT 550 cc
[2020-02-08] MEDS: Insulin DETEMIR 100 UNIT/ML X5UNITS SUBQ SCH (20:44)
[2020-02-09] MEDS: MethylPREDNISolone 40 MG/ML VIAL IVP SCH ×3 (01:21→11:47)
[2020-02-09] MEDS: Piperacillin/Tazobactam 3.375 GM in 0.9 % Sodium Chloride Mini Bag 100 ML IVPB SCH ×2 (01:21→07:33)
[2020-02-09 02:28] LABS: Basophils % 0.2 %; Hematocrit 38.6 % (37.5-50.1); Hemoglobin 11.8 g/dL (12.9-16.9); Immature Granulocytes % 0.8 % (0-4); Lymphocytes # 0.4 K/mcL (0.6-4.6); Mean Corpuscular HGB Conc 30.6 g/dL (31.6-35.5); Mean Corpuscular Hemoglobin 28.6 pg (28.0-33.3); Mean Corpuscular Volume 93.5 fL (83.0-100.0); Mean Platelet Volume 9.6 fL (9.4-12.4); Monocytes # 0.6 K/mcL (0.0-1.3); Monocytes % 4.9 %; Neutrophils # 11.7 K/mcL (1.6-8.9); Platelet Count 187 K/mcL (140-400); Red Blood Count 4.13 M/mcL (4.19-5.50); Red Cell Distribution Width 13.2 % (11.5-14.5); Segmented Neutrophils % 91.1 %; White Blood Count 12.8 K/mcL (4.3-11.1)
[2020-02-09 03:00] LABS: BUN/Creatinine Ratio 37 (6-26); Blood Urea Nitrogen 28 mg/dL (8-23); Calcium 8.6 mg/dL (8.6-10.3); Carbon Dioxide > 45 mEq/L (23-29); Chloride 91 mEq/L (98-107); Glucose 145 mg/dL (70-105); Osmolality,Calculated 306 (280-300); Potassium 3.1 mEq/L (3.5-5.1); Sodium 144 mEq/L (136-145); eGFR For African Americans > 60 (> 60); eGFR For Non-African Americans > 60 (> 60)
[2020-02-09] MEDS: Levalbuterol Neb 1.25 MG/3 ML IH SCH ×2 (03:43→10:10)
[2020-02-09] MEDS: Furosemide 40 MG/4 ML VIAL IVP SCH (07:35)
[2020-02-09] MEDS: Insulin LISPRO 300 UNITS/3 ML VIAL SUBQ SCH ×2 (07:35→11:51)
[2020-02-09] MEDS: GuaiFENesin/Dextromethorphan TABLET PO SCH (07:36)
[2020-02-09] MEDS: Metoprolol XL (24 HR) Succ 25 MG TAB.ER.24H PO SCH (07:36)
[2020-02-09] MEDS: Folic Acid 1 MG TABLET PO SCH (07:36)
[2020-02-09] MEDS: Vitamin B Complex/Vit C/Vit E 1 EACH TABLET PO SCH (07:36)
[2020-02-09] MEDS: *HR* LORazepam 1 MG TABLET PO SCH (07:36)
[2020-02-09] MEDS: Apixaban 5 MG TABLET PO SCH (07:37)
[2020-02-09] MEDS: DilTIAZem CD (24hr) 180 MG CAP.ER.24H PO SCH (07:37)
[2020-02-09] MEDS: Thiamine (B-1) 100 MG TABLET PO SCH (07:37)
[2020-02-09 10:48] LABS: ABG Base Excess 28 mEq/L (-2 to 3); ABG HCO3 56 mEq/L (21-27); ABG Oxygen Saturation 99 % (95-98); ABG PCO2 67 mmHg (35-45); ABG PH 7.53 pH Units (7.32-7.45); ABG PO2 142 mmHg (85-104); ABG TCO2 > 50 mEq/L (20-26)
[2020-02-09 11:21] VITALS: BP 133/51
== END 2020-02-09 14:05 | disposition hospice, inpatient (51) | DRG 853 ==
LOC: EMEROOARM 14:47 → 3ANU 14:47 → SUATTDRO 16:54 → 3ANU 17:42 → 2NNU 02-08 11:24 → 2ANU 02-09 13:50
PROVIDERS: ADMIT Student in an Organized Health Care Education/Training Program; ATTEND Internal Medicine

== ENCOUNTER 2020-02-09 12:37 | Inpatient (IN) ==
[2020-02-09] MEDS ORDERED: Bisacodyl 10 MG RECTAL SUPPOSITORY RC PRN (13:52)
[2020-02-09] MEDS ORDERED: Haloperidol Lactate 5 MG/ML VIAL IVP PRN (13:58)
[2020-02-09] MEDS ORDERED: Acetaminophen 650 MG RECTAL SUPP RC PRN (14:02)
[2020-02-09] MEDS: *HR* LORazepam 2 MG/ML VIAL IVP PRN ×2 (15:26→21:03)
[2020-02-09] MEDS: Albuterol 2.5 MG/3 ML NEBULIZER IH SCH ×3 (17:24→23:48)
[2020-02-09] MEDS: MethylPREDNISolone 40 MG/ML VIAL IVP SCH (17:53)
[2020-02-09] MEDS: Morphine Sulfate Oral CONC 10 MG/0.5 ML ORAL.SYG SL PRN ×2 (18:09→23:01)
[2020-02-09] MEDS ORDERED: Haloperidol Lactate 5 MG/ML VIAL IVP ONE (18:32)
[2020-02-09] MEDS: Haloperidol Lactate 5 MG/ML VIAL IVP PRN (22:57)
[2020-02-10] MEDS: Morphine Sulfate Oral CONC 10 MG/0.5 ML ORAL.SYG SL PRN ×3 (02:24→07:15)
[2020-02-10] MEDS: Haloperidol Lactate 5 MG/ML VIAL IVP PRN ×2 (02:58→07:15)
[2020-02-10] MEDS: Albuterol 2.5 MG/3 ML NEBULIZER IH SCH ×3 (04:03→11:36)
[2020-02-10] MEDS: *HR* LORazepam 2 MG/ML VIAL IVP PRN (04:37)
[2020-02-10] MEDS: MethylPREDNISolone 40 MG/ML VIAL IVP SCH (04:44)
[2020-02-10] MEDS ORDERED: Furosemide 40 MG/4 ML VIAL IVP SCH (09:00)
[2020-02-10] MEDS: DilTIAZem CD (24hr) 180 MG CAP.ER.24H PO SCH (09:26)
[2020-02-10] MEDS: Metoprolol XL (24 HR) Succ 25 MG TAB.ER.24H PO SCH (09:26)
[2020-02-10] MEDS: Thiamine (B-1) 100 MG TABLET PO SCH (09:26)
[2020-02-10] MEDS: Folic Acid 1 MG TABLET PO SCH (09:26)
[2020-02-10] MEDS ORDERED: Morphine Sulfate Oral CONC 10 MG/0.5 ML ORAL.SYG SL PRN (09:34)
[2020-02-10] MEDS ORDERED: Atropine 1% Opth Drops 100 DROP/5 ML BOTTLE SL PRN (09:59)
[2020-02-10] MEDS: Haloperidol Oral Conc 10 MG/5 ML UDC PO SCH ×3 (11:14→23:16)
[2020-02-10] MEDS ORDERED: Albuterol 2.5 MG/3 ML NEBULIZER IH PRN (13:44)
[2020-02-11] MEDS: Morphine Sulfate Oral CONC 10 MG/0.5 ML ORAL.SYG SL PRN ×2 (03:20→09:51)
[2020-02-11] MEDS: *HR* LORazepam Oral Conc 2 MG/ML SL PRN ×2 (04:32→09:35)
[2020-02-11] MEDS: Haloperidol Oral Conc 10 MG/5 ML UDC PO SCH ×2 (05:37→12:45)
[2020-02-11 07:39] VITALS: BP 119/54
[2020-02-11] MEDS: DilTIAZem CD (24hr) 180 MG CAP.ER.24H PO SCH (09:35)
[2020-02-11] MEDS: Thiamine (B-1) 100 MG TABLET PO SCH (09:35)
[2020-02-11] MEDS: Folic Acid 1 MG TABLET PO SCH (09:35)
[2020-02-11] MEDS: Metoprolol XL (24 HR) Succ 25 MG TAB.ER.24H PO SCH (09:35)
== END 2020-02-11 15:17 | disposition expired | DRG 951 ==
LOC: 2ANU 14:53
PROVIDERS: ADMIT Internal Medicine Hospice and Palliative Medicine; ATTEND Internal Medicine Hospice and Palliative Medicine